=== PATIENT | male | born 1985 | race Caucasian/White ===

== ENCOUNTER 2016-02-26 21:21 | Inpatient (IN) | payer OTHER ==
[2016-02-26 22:49] VITALS: BMI 28.3
--- NOTE | 2016-02-26 22:49 | HP ---
CIWA Score - CIWA Score Nausea/Vomitin Muscle Tremors: 4-Moderate,w/Arms Extend Anxiety: 4-Mod. Anxious/Guarded Agitation: 4-Moderately Restless Paroxysmal Sweats: 2 Orientation: 1-Uncertain about Date Tacttile Disturbances: 0-None Auditory Disturbances: 0-None Visual Disturbances: 0-None Headache: 2-Mild CIWA-Ar Total Score: 19 Admission ROS S - [facility] Chief Complaint: withdrawal sx patient completed detox on 02/21/16, stay with girl friend, began to drink alcohol, repeated history of alcohol related seizure episodes, last dose of gabapentin was 02/21/16, current withdrawal sx of severe vomiting ap 108 with bp elevation 150/104, tremor, disoriented to date and day of the month patient determined to complete the alcohol regimen and follow up on 03/01/16 with residential rehab program as arranged Allergies/Adverse Reactions: Allergies Allergy/AdvReac Type Severity Reaction Status Date / Time acetaminophen [From Tylenol] Allergy Nausea Verified 02/26/16 22:39 ketamine Allergy Verified 02/26/16 22:39 History of Present Illness: 30 years old male with long history of alcohol nicotine dependence has asthma gerd vomiting and questionable seizure also depression is admitted to detox Exam Limitations: No Limitations - Ebola screening Have you traveled outside of the country in the last 21 days: No (N) Have you had contact with anyone from an Ebola affected area: No Have you been sick,other than usual withdrawal symptoms: No Do you have a fever: No - Review of Systems Constitutional: Chills, Changes in sleep, Weight Stable EENT: reports: No Symptoms Reported Respiratory: reports: No Symptoms reported Cardiac: reports: Palpitations GI: reports: Diarrhea, Nausea, Poor Fluid Intake, Vomiting, Indigestion, Abdominal cramping : reports: No Symptoms Reported Musculoskeletal: reports: Joint Pain, Muscle Pain (right shoulder) Integumentary: reports: No Symptoms Reported Neuro: reports: Seizure (2015), Weakness Endocrine: reports: No Symptoms Reported Hematology: reports: No Symptoms Reported Psychiatric: reports: Judgement Intact, Depressed Other Systems: Reviewed and Negative Patient History - Patient Medical History Hx Anemia: No Hx Asthma: Yes Hx Chronic Obstructive Pulmonary Disease (COPD): No Hx Cancer: No Hx Cardiac Disorders: No Hx Congestive Heart Failure: No Hx Hypertension: No Hx Hypercholesterolemia: No Hx Pacemaker: No HX Cerebrovascular Accident: No Hx Seizures: Yes (LAST 07/2014) Hx Dementia: No Hx Diabetes: No Hx Gastrointestinal Disorders: Yes Hx Liver Disease: No Hx Genitourinary Disorders: No Hx Sexually Transmitted Disorders: No Hx Renal Disease (ESRD): No Hx Thyroid Disease: No Hx Human Immunodeficiency Virus (HIV): No (negative) Hx Hepatitis C: No Hx Depression: Yes Hx Suicide Attempt: No Hx Bipolar Disorder: No Hx Schizophrenia: No - Patient Surgical History Past Surgical History: Yes Hx Neurologic Surgery: No Hx Cataract Extraction: No Hx Cardiac Surgery: No Hx Lung Surgery: No Hx Breast Surgery: No Hx Breast Biopsy: No Hx Abdominal Surgery: No Hx Appendectomy: No Hx Cholecystectomy: No Hx Genitourinary Surgery: No Hx Orthopedic Surgery: Yes (SHOULDER(dISLOCATED) 06/2015) Anesthesia Reaction: No - PPD History Previous Implant?: Yes Documented Results: Negative w/proof Implanted On Prior R Admission?: Yes Date: 01/04/16 Results: 0MM PPD to be Administered?: No - Smoking Cessation Smoking history: Current every day smoker Have you smoked in the past 12 months: Yes Aproximately how many cigarettes per day: 20 Cigars Per Day: 0 Hx Chewing Tobacco Use: No Initiated information on smoking cessation: Yes 'Breaking Loose' booklet given: 02/26/16 - Substance & Tx. History Hx Alcohol Use: Yes Hx Substance Use: Yes Substance Use Type: Alcohol, Cocaine, Marijuana Hx Substance Use Treatment: Yes - Substances Abused Alcohol Route: Oral Frequency: Daily Amount used: 40oz x 7 beer Age of first use: 20 Date of Last Use: 02/26/16 Family Disease History - Family Disease History Family Disease History: Diabetes: Grandparent (grandmother alcohol, ), Heart Disease: Grandparent, Other: Grandparent, Mother (alcohol, hepatitis), Brother ( alcohol,seizure,) Admission Physical Exam BHS - Vital Signs Vital Signs: Vital Signs - 24 hr 02/26/16 22:08 Temperature 97.6 F Pulse Rate 108 H Respiratory 18 Rate Blood Pressure 150/104 - Physical General Appearance: Yes: Nourished, Appropriately Dressed, Moderate Distress, Alcohol on Breath, Tremorous, Irritable, Sweating, Anxious HEENTM: Yes: Hearing grossly Normal, Normal ENT Inspection, Normocephalic, Normal Voice Respiratory: Yes: Chest Non-Tender, Labored Respiration, No Respiratory Distress , No Accessory Muscle Use, Wheezing, Expiration, Hyperresonant, Inspiration Neck: Yes: Supple, Trachea in good position Breast: Yes: Breasts Symetrical Cardiology: Yes: Regular Rhythm, S1, S2, Tachycardia Abdominal: Yes: Non Tender, Soft, Increased Bowel Sounds Genitourinary: Yes: Within Normal Limits Back: Yes: Normal Inspection Musculoskeletal: Yes: full range of Motion, Gait Steady, Muscle Pain (right shoulder) Extremities: Yes: Normal Range of Motion, Non-Tender, Tremors Neurological: Yes: Alert, Motor Strength 5/5, Normal Response, Depressed Affect Integumentary: Yes: Warm Lymphatic: Yes: Within Normal Limits - Diagnostic (1) Alcohol dependence with uncomplicated withdrawal Current Visit: Yes Status: Acute (2) Asthma Current Visit: Yes Status: Acute Qualifiers: Asthma severity: mild intermittent Asthma complication type: with status asthmaticus Qualified Code(s): J45.22 - Mild intermittent asthma with status asthmaticus (3) Cocaine dependence Current Visit: Yes Status: Chronic Qualifiers: Substance use status: uncomplicated Qualified Code(s): F14.20 - Cocaine dependence, uncomplicated (4) GERD (gastroesophageal reflux disease) Current Visit: Yes Status: Acute Qualifiers: Esophagitis presence: without esophagitis Qualified Code(s): K21.9 - Gastro-esophageal reflux disease without esophagitis (5) Nicotine dependence Current Visit: Yes Status: Acute Qualifiers: Nicotine product type: cigarettes Substance use status: uncomplicated Qualified Code(s): F17.210 - Nicotine dependence, cigarettes, uncomplicated (6) Seizure due to alcohol withdrawal Current Visit: Yes Status: Suspected Qualifiers: Complication of substance-induced condition: uncomplicated Qualified Code(s): F10.230 - Alcohol dependence with withdrawal, uncomplicated Comment: neurontin 300 mg tid (7) Depression Current Visit: Yes Status: Suspected Qualifiers: Depression Type: unspecified Qualified Code(s): F32.9 - Major depressive disorder, single episode, unspecified Comment: lexapro (8) Marijuana dependence Current Visit: Yes Status: Chronic Cleared for Admission B[facility] - Detox or Rehab [facility] Level of Care: Medically Managed Detox Regimen/Protocol: Librium S Breath Alcohol Content Breath Alcohol Content: 0.182 Vital Signs - Vital Signs Vital Signs Refused: No Temperature: 97.6 F Temperature Source: Oral Pulse Rate: 108 Respiratory Rate: 18 Blood Pressure: 150/104 BP Location: Left Arm Blood Pressure Position: Sitting - Height Height: 5 ft 11 in - Weight Weight: 203 lb Weight Measurement Method: Standing Scale Body Mass Index (BMI): 28.3 - Bowel Function Bowel Movement: Yes Urine Drug Screen - Results Drug Screen Negative: No Urine Drug Screen Results: THC-Marijuana, EVETTE-Cocaine, BZO-Benzodiazepines, TCA- Tricyclic Antidepress
[2016-02-26] MEDS ORDERED: MAGNESIUM CITRATE 300 ML BOTTLE PO PRN (22:52)
[2016-02-26] MEDS ORDERED: chlordiazePOXIDE HCL 25 MG CAPSULE PO ONE (22:52)
[2016-02-26] MEDS ORDERED: MAGNESIUM HYDROX 2400MG/30ML ORAL SUSPENSION 30 ML CUP PO PRN (22:52)
[2016-02-26] MEDS ORDERED: guaiFENesin/D-METHORPHAN HB 10 ML UNIT-DOSE CUPS PO PRN (22:52)
[2016-02-26] MEDS ORDERED: hydrOXYzine PAMOATE 50 MG CAPSULE (FP) PO PRN (22:52)
[2016-02-26] MEDS ORDERED: P-EPHED 60MG/TRIPROLIDI 2.5MG TABLET PO PRN (22:52)
[2016-02-26] MEDS ORDERED: MENTHOL/PHENOL 1 EACH UD MM PRN (22:52)
[2016-02-26] MEDS ORDERED: chlordiazePOXIDE HCL 25 MG CAPSULE PO PRN (22:52)
[2016-02-26] MEDS ORDERED: LOPERAMIDE HCL 2 MG CAPSULE PO PRN (22:52)
[2016-02-26] MEDS ORDERED: NICOTINE POLACRILEX 2 MG GUM BC PRN (22:52)
[2016-02-26] MEDS ORDERED: ALBUTEROL SO4 2.5/IPRATROPIUM 0.5 INH SOL 3 ML VIAL.NEB. NEB PRN (22:59)
[2016-02-26] MEDS ORDERED: ALBUTEROL SO4 6.7 GM HFA INHALER IH PRN (22:59)
[2016-02-26] MEDS ORDERED: ONDANSETRON *ODT* 4 MG TABLET SL PRN (22:59)
[2016-02-26] MEDS ORDERED: cloNIDine HCL 0.1 MG TABLET PO PRN (23:00)
[2016-02-26] MEDS: chlordiazePOXIDE HCL 25 MG CAPSULE PO SCH (23:31)
[2016-02-26] MEDS: diphenhydrAMINE HCL 50 MG CAPSULE PO PRN (23:32)
[2016-02-27] MEDS: chlordiazePOXIDE HCL 25 MG CAPSULE PO SCH ×4 (05:24→22:18)
[2016-02-27] MEDS: GABAPENTIN 300 MG CAPSULE (FP) PO SCH ×3 (05:24→22:18)
[2016-02-27] MEDS: MAG HYDROX/AL HYDROX/SIMETH 30 ML UNIT-DOSE CUP PO PRN (05:27)
[2016-02-27] MEDS: PRENATAL VITAMINS W/ FOLIC ACID TABLET (FP) PO SCH (10:27)
[2016-02-27] MEDS: NICOTINE 21 MG/24 HOURS TOPICAL PATCH TD SCH (10:27)
[2016-02-27] MEDS: RANITIDINE HCL 150 MG TABLET (FP) PO SCH ×2 (10:27→22:18)
[2016-02-27 10:38] LABS: MCH 30.7 pg (25.7-33.7); MCHC 34.2 g/dl (32.0-35.9); MEAN CELL VOLUME 89.7 fl (80-96); MEAN PLT VOLUME 8.4 fl (7.5-11.1); PLATELET COUNT 243 K/MM3 (134-434); RDW 13.3 % (11.9-15.9); WHITE BLOOD COUNT 7.3 K/mm3 (4.0-10.0)
[2016-02-27 10:47] LABS: ALBUMIN 3.7 g/dl (3.4-5.0); CALCIUM 8.3 mg/dL (8.5-10.1)
[2016-02-27 10:51] LABS: ALK PHOS 97 U/L (45-117); ANION GAP 5 (8-16); BILIRUBIN,TOTAL 0.5 mg/dL (0.2-1.0); CO2 31 mmol/L (21-32); GLUCOSE,RANDOM 93 mg/dL (74-106); SGOT/AST 23 U/L (15-37); SGPT/ALT 32 U/L (12-78); TOT PROT 6.7 g/dl (6.4-8.2)
--- NOTE | 2016-02-27 12:12 | PN ---
[facility] CIWA - CIWA Score Nausea/Vomitin-Mild Nausea/No Vomiting Muscle Tremors: 4-Moderate,w/Arms Extend Anxiety: 4-Mod. Anxious/Guarded Agitation: 4-Moderately Restless Paroxysmal Sweats: 3 Orientation: 0-Oriented Tacttile Disturbances: 0-None Auditory Disturbances: 0-None Visual Disturbances: 0-None Headache: 0-None Present CIWA-Ar Total Score: 16 BHS Progress Note (SOAP) Subjective: ANXIETY,TREMORS,SWEATING,INTERRUPTED SLEEP,RESTLESS Objective: 02/27/16 12:12 Vital Signs - 8 hr 02/27/16 02/27/16 06:04 09:51 Temperature 98 F 97.4 F L Pulse Rate 94 H 74 Respiratory 18 18 Rate Blood Pressure 150/91 147/92 Laboratory Last Values WBC 7.3 K/mm3 (4.0-10.0) 02/27/16 07:50 RBC 4.68 M/mm3 (4.00-5.60) 02/27/16 07:50 Hgb 14.4 GM/dL (11.7-16.9) 02/27/16 07:50 Hct 42.0 % (35.4-49) 02/27/16 07:50 MCV 89.7 fl (80-96) 02/27/16 07:50 MCHC 34.2 g/dl (32.0-35.9) 02/27/16 07:50 RDW 13.3 % (11.9-15.9) 02/27/16 07:50 Plt Count 243 K/MM3 (134-434) 02/27/16 07:50 MPV 8.4 fl (7.5-11.1) 02/27/16 07:50 Sodium 140 mmol/L (136-145) 02/27/16 07:50 Potassium 3.9 mmol/L (3.5-5.1) 02/27/16 07:50 Chloride 104 mmol/L (98-107) 02/27/16 07:50 Carbon Dioxide 31 mmol/L (21-32) 02/27/16 07:50 Anion Gap 5 (8-16) L 02/27/16 07:50 BUN 13 mg/dL (7-18) D 02/27/16 07:50 Creatinine 1.0 mg/dL (0.7-1.3) 02/27/16 07:50 Creat Clearance w eGFR > 60 (>60) 02/27/16 07:50 Random Glucose 93 mg/dL (74-106) 02/27/16 07:50 Calcium 8.3 mg/dL (8.5-10.1) L 02/27/16 07:50 Total Bilirubin 0.5 mg/dL (0.2-1.0) D 02/27/16 07:50 AST 23 U/L (15-37) D 02/27/16 07:50 ALT 32 U/L (12-78) D 02/27/16 07:50 Alkaline Phosphatase 97 U/L (45-117) 02/27/16 07:50 Total Protein 6.7 g/dl (6.4-8.2) 02/27/16 07:50 Albumin 3.7 g/dl (3.4-5.0) 02/27/16 07:50 LABS NOTED Assessment: 02/27/16 12:12 WITHDRAWAL SX. Plan: CONTINUE DETOX
[2016-02-27 13:23] LABS: URINE APPEARANCE CLEAR; URINE BILIRUBIN NEGATIVE (NEGATIVE); URINE BLOOD NEGATIVE (NEGATIVE); URINE COLOR YELLOW; URINE GLUCOSE (UA) NEGATIVE (NEGATIVE); URINE KETONE NEGATIVE (NEGATIVE); URINE LEUK ESTERASE NEGATIVE (NEGATIVE); URINE NITRITE NEGATIVE (NEGATIVE); URINE PROTEIN NEGATIVE (NEGATIVE); URINE UROBILINOGEN NEGATIVE E.U./dl (0.2-1.0)
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
[2016-02-27] MEDS: THIAMINE HCL 100 MG TABLET (FP) PO SCH (22:18)
[2016-02-27] MEDS: ZOLPIDEM TARTRATE 5 MG TABLET PO PRN (22:20)
[2016-02-28] MEDS: chlordiazePOXIDE HCL 25 MG CAPSULE PO SCH ×3 (05:29→17:44)
[2016-02-28] MEDS: GABAPENTIN 300 MG CAPSULE (FP) PO SCH ×3 (05:29→22:19)
[2016-02-28] MEDS: PRENATAL VITAMINS W/ FOLIC ACID TABLET (FP) PO SCH (10:27)
[2016-02-28] MEDS: RANITIDINE HCL 150 MG TABLET (FP) PO SCH ×2 (10:27→22:19)
[2016-02-28] MEDS: ESCITALOPRAM OXALATE 20 MG TABLET (FP) PO SCH (10:27)
[2016-02-28] MEDS: NICOTINE 21 MG/24 HOURS TOPICAL PATCH TD SCH (10:28)
--- NOTE | 2016-02-28 13:53 | PN ---
S CIWA - CIWA Score Nausea/Vomitin Muscle Tremors: 4-Moderate,w/Arms Extend Anxiety: 2 Agitation: 1-Slight > Activity Paroxysmal Sweats: 3 Orientation: 0-Oriented Tacttile Disturbances: 1-Very Mild Itch/Numbness Auditory Disturbances: 0-None Visual Disturbances: 1-Very Mild Sensitivity Headache: 0-None Present CIWA-Ar Total Score: 14 BHS Progress Note (SOAP) Subjective: Tremors, Interrupted Sleep, Diarrhea, Sweating. Objective: 02/28/16 13:52 Vital Signs Temperature 97.5 F L 02/28/16 13:11 Pulse Rate 69 02/28/16 13:11 Respiratory Rate 18 02/28/16 13:11 Blood Pressure 134/87 02/28/16 13:11 O2 Sat by Pulse Oximetry (%) Laboratory Last Values WBC 7.3 K/mm3 (4.0-10.0) 02/27/16 07:50 RBC 4.68 M/mm3 (4.00-5.60) 02/27/16 07:50 Hgb 14.4 GM/dL (11.7-16.9) 02/27/16 07:50 Hct 42.0 % (35.4-49) 02/27/16 07:50 MCV 89.7 fl (80-96) 02/27/16 07:50 MCHC 34.2 g/dl (32.0-35.9) 02/27/16 07:50 RDW 13.3 % (11.9-15.9) 02/27/16 07:50 Plt Count 243 K/MM3 (134-434) 02/27/16 07:50 MPV 8.4 fl (7.5-11.1) 02/27/16 07:50 Sodium 140 mmol/L (136-145) 02/27/16 07:50 Potassium 3.9 mmol/L (3.5-5.1) 02/27/16 07:50 Chloride 104 mmol/L (98-107) 02/27/16 07:50 Carbon Dioxide 31 mmol/L (21-32) 02/27/16 07:50 Anion Gap 5 (8-16) L 02/27/16 07:50 BUN 13 mg/dL (7-18) D 02/27/16 07:50 Creatinine 1.0 mg/dL (0.7-1.3) 02/27/16 07:50 Creat Clearance w eGFR > 60 (>60) 02/27/16 07:50 Random Glucose 93 mg/dL (74-106) 02/27/16 07:50 Calcium 8.3 mg/dL (8.5-10.1) L 02/27/16 07:50 Total Bilirubin 0.5 mg/dL (0.2-1.0) D 02/27/16 07:50 AST 23 U/L (15-37) D 02/27/16 07:50 ALT 32 U/L (12-78) D 02/27/16 07:50 Alkaline Phosphatase 97 U/L (45-117) 02/27/16 07:50 Total Protein 6.7 g/dl (6.4-8.2) 02/27/16 07:50 Albumin 3.7 g/dl (3.4-5.0) 02/27/16 07:50 Urine Color Yellow 02/27/16 08:15 Urine Appearance Clear 02/27/16 08:15 Urine pH 6.0 (5.0-8.0) 02/27/16 08:15 Ur Specific [place] 1.021 (1.001-1.035) 02/27/16 08:15 Urine Protein Negative (NEGATIVE) 02/27/16 08:15 Urine Glucose (UA) Negative (NEGATIVE) 02/27/16 08:15 Urine Ketones Negative (NEGATIVE) 02/27/16 08:15 Urine Blood Negative (NEGATIVE) 02/27/16 08:15 Urine Nitrite Negative (NEGATIVE) 02/27/16 08:15 Urine Bilirubin Negative (NEGATIVE) 02/27/16 08:15 Urine Urobilinogen Negative E.U./dl (0.2-1.0) 02/27/16 08:15 Ur Leukocyte Esterase Negative (NEGATIVE) 02/27/16 08:15 RPR Titer Nonreactive (NONREACTIVE) 02/27/16 07:50 LABS NOTED. Assessment: 02/28/16 13:52 WITHDRAWAL SYMPTOMS. Plan: CONTINUE DETOX. PRN IMMODIUM FOR DIARRHEA.
[2016-02-28] MEDS: MAG HYDROX/AL HYDROX/SIMETH 30 ML UNIT-DOSE CUP PO PRN (21:26)
[2016-02-28] MEDS: chlordiazePOXIDE 5 MG CAPSULE PO SCH (22:19)
[2016-02-28] MEDS: THIAMINE HCL 100 MG TABLET (FP) PO SCH (22:19)
[2016-02-28] MEDS: ZOLPIDEM TARTRATE 5 MG TABLET PO PRN (22:22)
[2016-02-29] MEDS: GABAPENTIN 300 MG CAPSULE (FP) PO SCH ×3 (05:30→22:18)
[2016-02-29] MEDS: chlordiazePOXIDE 5 MG CAPSULE PO SCH ×3 (05:30→17:50)
--- NOTE | 2016-02-29 10:37 | PN ---
B[facility] Progress Note (SOAP) Subjective: SWEATING,RESTLESS Objective: 02/29/16 10:36 Vital Signs - 8 hr 02/29/16 02/29/16 06:13 10:17 Temperature 98.9 F 98.6 F Pulse Rate 63 80 Respiratory 18 20 Rate Blood Pressure 134/93 144/90 Laboratory Last Values WBC 7.3 K/mm3 (4.0-10.0) 02/27/16 07:50 RBC 4.68 M/mm3 (4.00-5.60) 02/27/16 07:50 Hgb 14.4 GM/dL (11.7-16.9) 02/27/16 07:50 Hct 42.0 % (35.4-49) 02/27/16 07:50 MCV 89.7 fl (80-96) 02/27/16 07:50 MCHC 34.2 g/dl (32.0-35.9) 02/27/16 07:50 RDW 13.3 % (11.9-15.9) 02/27/16 07:50 Plt Count 243 K/MM3 (134-434) 02/27/16 07:50 MPV 8.4 fl (7.5-11.1) 02/27/16 07:50 Sodium 140 mmol/L (136-145) 02/27/16 07:50 Potassium 3.9 mmol/L (3.5-5.1) 02/27/16 07:50 Chloride 104 mmol/L (98-107) 02/27/16 07:50 Carbon Dioxide 31 mmol/L (21-32) 02/27/16 07:50 Anion Gap 5 (8-16) L 02/27/16 07:50 BUN 13 mg/dL (7-18) D 02/27/16 07:50 Creatinine 1.0 mg/dL (0.7-1.3) 02/27/16 07:50 Creat Clearance w eGFR > 60 (>60) 02/27/16 07:50 Random Glucose 93 mg/dL (74-106) 02/27/16 07:50 Calcium 8.3 mg/dL (8.5-10.1) L 02/27/16 07:50 Total Bilirubin 0.5 mg/dL (0.2-1.0) D 02/27/16 07:50 AST 23 U/L (15-37) D 02/27/16 07:50 ALT 32 U/L (12-78) D 02/27/16 07:50 Alkaline Phosphatase 97 U/L (45-117) 02/27/16 07:50 Total Protein 6.7 g/dl (6.4-8.2) 02/27/16 07:50 Albumin 3.7 g/dl (3.4-5.0) 02/27/16 07:50 Urine Color Yellow 02/27/16 08:15 Urine Appearance Clear 02/27/16 08:15 Urine pH 6.0 (5.0-8.0) 02/27/16 08:15 Ur Specific [place] 1.021 (1.001-1.035) 02/27/16 08:15 Urine Protein Negative (NEGATIVE) 02/27/16 08:15 Urine Glucose (UA) Negative (NEGATIVE) 02/27/16 08:15 Urine Ketones Negative (NEGATIVE) 02/27/16 08:15 Urine Blood Negative (NEGATIVE) 02/27/16 08:15 Urine Nitrite Negative (NEGATIVE) 02/27/16 08:15 Urine Bilirubin Negative (NEGATIVE) 02/27/16 08:15 Urine Urobilinogen Negative E.U./dl (0.2-1.0) 02/27/16 08:15 Ur Leukocyte Esterase Negative (NEGATIVE) 02/27/16 08:15 RPR Titer Nonreactive (NONREACTIVE) 02/27/16 07:50 LABS NOTED Assessment: 02/29/16 10:37 WITHDRAWAL SX. Plan: CONTINUE DETOX
[2016-02-29] MEDS: ESCITALOPRAM OXALATE 20 MG TABLET (FP) PO SCH (10:40)
[2016-02-29] MEDS: PRENATAL VITAMINS W/ FOLIC ACID TABLET (FP) PO SCH (10:40)
[2016-02-29] MEDS: RANITIDINE HCL 150 MG TABLET (FP) PO SCH ×2 (10:40→22:18)
[2016-02-29] MEDS: NICOTINE 21 MG/24 HOURS TOPICAL PATCH TD SCH (10:41)
[2016-02-29] MEDS: chlordiazePOXIDE HCL 10 MG CAPSULE PO SCH (22:18)
[2016-02-29] MEDS: THIAMINE HCL 100 MG TABLET (FP) PO SCH (22:18)
[2016-02-29] MEDS: diphenhydrAMINE HCL 50 MG CAPSULE PO PRN (22:20)
[2016-02-29] MEDS ORDERED: ZOLPIDEM TARTRATE 5 MG TABLET PO ONE (22:33)
[2016-03-01] MEDS: chlordiazePOXIDE HCL 10 MG CAPSULE PO SCH (05:32)
[2016-03-01] MEDS: GABAPENTIN 300 MG CAPSULE (FP) PO SCH (05:32)
[2016-03-01 06:36] VITALS: BP 113/74; PULSE 61; TEMP 96.8
--- NOTE | 2016-03-01 08:24 | PN ---
S Progress Note (SOAP) Subjective: ALERT,NO COMPLAINT Objective: 03/01/16 08:23 Vital Signs Temperature 96.8 F L 03/01/16 06:36 Pulse Rate 61 03/01/16 06:36 Respiratory Rate 18 03/01/16 06:36 Blood Pressure 113/74 03/01/16 06:36 O2 Sat by Pulse Oximetry (%) Assessment: 03/01/16 08:23 DETOX COMPLETED,NO WITHDRAWAL SYMPTOM Plan: DISCHARGE TODAY,FOLLOW UP WITH AFTER CARE PROGRAM ARRANGEMENT
--- NOTE | 2016-03-01 08:27 | DS ---
[facility] Detox Discharge Summary Admission Date: 02/26/16 Discharge Date: 03/01/16 - History Present History: Alcohol Dependence, Cocaine Dependence Additional Comments: FOLLOW UP WITH AFTER [facility] PROGRAM ARRANGEMENT AND PMD FOR MEDICAL PROBLEM Pertinent Past History: ASTHMA GERD NICOTINE DEPENDENCE SEIZURE - Physical Exam Results Vital Signs: Vital Signs Temperature 96.8 F L 03/01/16 06:36 Pulse Rate 61 03/01/16 06:36 Respiratory Rate 18 03/01/16 06:36 Blood Pressure 113/74 03/01/16 06:36 O2 Sat by Pulse Oximetry (%) Pertinent Admission Physical Exam Findings: WITHDRAWAL SYMPTOM - Treatment Hospital Course: Detox Protocol Followed, Detoxed Safely, Responded well, Discharged Condition Good Patient has Accepted a Rehab Referral to: DECLINED - Medication Discharge Medications: Ambulatory Orders Escitalopram Oxalate [Lexapro -] 20 mg PO DAILY 02/17/16 Naltrexone HCl [Revia] 50 mg PO DAILY 02/17/16 Escitalopram Oxalate [Lexapro -] 20 mg PO DAILY #30 tablet 02/18/16 Albuterol Sulfate Inhaler - [Ventolin HFA Inhaler -] 2 inh IH Q4H PRN #1 inhaler 02/21/16 Gabapentin 300 mg PO TID #90 capsule 02/21/16 - AMA Did Patient Leave Against Medical Advice: No
== END 2016-03-01 06:44 | disposition home or self-care (01) | DRG 774 ==
LOC: YASAS 21:21 → Y3N 23:01
PROVIDERS: ADMIT Internal Medicine; ATTEND Internal Medicine
PROC: HZ2ZZZZ Detoxification Services for Substance Abuse Treatment (ICD-10-PCS; principal; 2016-02-26)
DX: F10.230 Alcohol dependence with withdrawal, uncomplicated (principal); F14.20 Cocaine dependence, uncomplicated; F12.20 Cannabis dependence, uncomplicated; F17.210 Nicotine dependence, cigarettes, uncomplicated; F19.24 Other psychoactive substance dependence with psychoactive substance-induced mood disorder; F32.9 Major depressive disorder, single episode, unspecified; K21.9 Gastro-esophageal reflux disease without esophagitis; G40.909 Epilepsy, unspecified, not intractable, without status epilepticus; J45.22 Mild intermittent asthma with status asthmaticus; R00.0 Tachycardia, unspecified
CPT/HCPCS: 36415; 80053; 81003; 85027; 86593; 93005; 93010

== ENCOUNTER 2016-05-09 00:21 | Inpatient (IN) | payer OTHER ==
--- NOTE | 2016-05-09 00:40 | HP ---
CIWA Score - CIWA Score Nausea/Vomitin Muscle Tremors: 4-Moderate,w/Arms Extend Anxiety: 4-Mod. Anxious/Guarded Agitation: 4-Moderately Restless Paroxysmal Sweats: 3 Orientation: 1-Uncertain about Date Tacttile Disturbances: 3-Moderate Itch/Numb/Burn Auditory Disturbances: 0-None Visual Disturbances: 0-None Headache: 4-Moderately Severe CIWA-Ar Total Score: 25 Admission ROS BHS - HPI Chief Complaint: C/O WITHDRAWAL SX'S. SEEKING DETOX. Allergies/Adverse Reactions: Allergies Allergy/AdvReac Type Severity Reaction Status Date / Time acetaminophen [From Tylenol] Allergy Nausea Verified 05/09/16 00:34 ketamine Allergy Verified 05/09/16 00:34 History of Present Illness: 31 Y.O. MALE WITH OPIOID DEPENDENCE ADMITTED FOR DETOX TXMENT. CLIENT IS KNOWN TO [facility]. REPORTS LONGEST PERIOD OF SOBRIETY 6 MONTHS. Exam Limitations: No Limitations - Ebola screening Have you traveled outside of the country in the last 21 days: No Have you had contact with anyone from an Ebola affected area: No Have you been sick,other than usual withdrawal symptoms: No Do you have a fever: No - Review of Systems Constitutional: Chills, Loss of Appetite, Malaise, Night Sweats, Changes in sleep EENT: reports: Other (HOARNESS) Respiratory: reports: Shortness of Breath, Other (R/T PANIC ATTACKS) Cardiac: reports: No Symptoms Reported GI: reports: Diarrhea, Nausea, Poor Appetite, Vomiting : reports: No Symptoms Reported Musculoskeletal: reports: Neck Pain Integumentary: reports: No Symptoms Reported Neuro: reports: Seizure (R/T ETOH WITH DRAWAL LAST 07/2014) Endocrine: reports: No Symptoms Reported Hematology: reports: No Symptoms Reported Psychiatric: reports: Anxious, Depressed Other Systems: Reviewed and Negative Patient History - Patient Medical History Hx Anemia: No Hx Asthma: Yes Hx Chronic Obstructive Pulmonary Disease (COPD): No Hx Cancer: No Hx Cardiac Disorders: No Hx Congestive Heart Failure: No Hx Hypertension: No Hx Hypercholesterolemia: No Hx Pacemaker: No HX Cerebrovascular Accident: No Hx Seizures: Yes (LAST 07/2014) Hx Dementia: No Hx Diabetes: No Hx Gastrointestinal Disorders: Yes (GERD) Hx Liver Disease: No Hx Genitourinary Disorders: No Hx Sexually Transmitted Disorders: No Hx Renal Disease (ESRD): No Hx Thyroid Disease: No Hx Human Immunodeficiency Virus (HIV): No Hx Hepatitis C: No Hx Depression: Yes (LEXAPRO) Hx Suicide Attempt: No Hx Bipolar Disorder: No Hx Schizophrenia: No Other Medical History: DENIES - Patient Surgical History Past Surgical History: Yes Hx Neurologic Surgery: No Hx Cataract Extraction: No Hx Cardiac Surgery: No Hx Lung Surgery: No Hx Breast Surgery: No Hx Breast Biopsy: No Hx Abdominal Surgery: No Hx Appendectomy: No Hx Cholecystectomy: No Hx Genitourinary Surgery: No Hx Section: No Hx Orthopedic Surgery: Yes (SHOULDER(dISLOCATED) 06/2015) Anesthesia Reaction: No - PPD History Previous Implant?: Yes Documented Results: Negative w/proof Implanted On Prior [facility] Admission?: Yes Date: 01/04/16 Results: 0MM PPD to be Administered?: No - Smoking Cessation Smoking history: Current every day smoker Have you smoked in the past 12 months: Yes Aproximately how many cigarettes per day: 10 Cigars Per Day: 0 Hx Chewing Tobacco Use: No Initiated information on smoking cessation: Yes 'Breaking Loose' booklet given: 05/09/16 - Substance & Tx. History Hx Alcohol Use: Yes Hx Substance Use: Yes Substance Use Type: Alcohol, Cocaine, Marijuana Hx Substance Use Treatment: Yes ([facility]) - Substances Abused BEER Route: Oral Frequency: Daily Amount used: 7- 24OZ Age of first use: 23 Date of Last Use: 05/08/16 THC Route: Smoking Frequency: Daily Amount used: 1 JOINT Age of first use: 13 Date of Last Use: 05/08/16 EVETTE Route: Inhalation Frequency: 1-3 times last 30 days Amount used: 1GM Age of first use: 24 Date of Last Use: 05/06/16 Family Disease History - Family Disease History Family Disease History: Diabetes: Grandparent (grandmother alcohol, ), Heart Disease: Grandparent, Other: Grandparent, Mother (alcohol, hepatitis), Brother ( alcohol,seizure,) Admission Physical Exam [facility] - Physical General Appearance: Yes: Appropriately Dressed, Mild Distress, Alcohol on Breath , Tremorous, Anxious HEENTM: Yes: EOMI, Normocephalic, Normal Voice, DAE, Pharynx Normal, Other ( HOARSE VOICE) Respiratory: Yes: Chest Non-Tender, Lungs Clear, Normal Breath Sounds, No Respiratory Distress, No Accessory Muscle Use Neck: Yes: No masses,lesions,Nodules, Supple, Trachea in good position Breast: Yes: Breast Exam Deferred Cardiology: Yes: Regular Rhythm, Regular Rate, S1, S2 Abdominal: Yes: Normal Bowel Sounds, Non Tender, Flat, Soft Genitourinary: Yes: Within Normal Limits Back: Yes: Normal Inspection Musculoskeletal: Yes: full range of Motion, Gait Steady Extremities: Yes: Normal Capillary Refill, Normal Range of Motion, Non-Tender, Tremors 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, Alert, Motor Strength 5/5 Integumentary: Yes: Normal Color, Warm, Moist Lymphatic: Yes: Within Normal Limits - Diagnostic (1) Alcohol dependence with uncomplicated withdrawal Current Visit: No Status: Acute (2) Cocaine dependence Current Visit: Yes Status: Chronic Qualifiers: Substance use status: uncomplicated Qualified Code(s): F14.20 - Cocaine dependence, uncomplicated (3) Marijuana dependence Current Visit: Yes Status: Chronic (4) Nicotine dependence Current Visit: Yes Status: Chronic Qualifiers: Nicotine product type: cigarettes Substance use status: uncomplicated Qualified Code(s): F17.210 - Nicotine dependence, cigarettes, uncomplicated (5) Asthma Current Visit: Yes Status: Chronic Qualifiers: Asthma severity: mild intermittent Asthma complication type: with status asthmaticus Qualified Code(s): J45.22 - Mild intermittent asthma with status asthmaticus (6) GERD (gastroesophageal reflux disease) Current Visit: Yes Status: Chronic Qualifiers: Esophagitis presence: without esophagitis Qualified Code(s): K21.9 - Gastro-esophageal reflux disease without esophagitis (7) Seizure due to alcohol withdrawal Current Visit: Yes Status: Suspected Qualifiers: Complication of substance-induced condition: uncomplicated Qualified Code(s): F10.230 - Alcohol dependence with withdrawal, uncomplicated Comment: neurontin 300 mg tid Cleared for Admission S - Detox or Rehab [facility] Level of Care: Medically Managed Detox Regimen/Protocol: Librium [facility] Breath Alcohol Content Breath Alcohol Content: 0.186 Vital Signs - Vital Signs Vital Signs Refused: No Temperature: 98.6 F Temperature Source: Oral Pulse Rate: 97 Respiratory Rate: 20 Blood Pressure: 134/87 BP Location: Left Arm Blood Pressure Position: Sitting - Height Height: 5 ft 11 in - Weight Weight: 90.718 kg Weight Measurement Method: Standing Scale Body Mass Index (BMI): 27.8 - Bowel Function Bowel Movement: No Urine Drug Screen - Test Device Lot Number: [id number] Expiration Date: 01/26/18 - Control Is Test Valid: Yes - Results Drug Screen Negative: No Urine Drug Screen Results: THC-Marijuana, EVETTE-Cocaine
[2016-05-09 00:47] VITALS: BMI 27.8
[2016-05-09] MEDS ORDERED: MENTHOL/PHENOL 1 EACH UD MM PRN (00:55)
[2016-05-09] MEDS ORDERED: LOPERAMIDE HCL 2 MG CAPSULE PO PRN (00:55)
[2016-05-09] MEDS ORDERED: chlordiazePOXIDE HCL 25 MG CAPSULE PO ONE (00:55)
[2016-05-09] MEDS ORDERED: hydrOXYzine PAMOATE 50 MG CAPSULE (FP) PO PRN (00:55)
[2016-05-09] MEDS ORDERED: P-EPHED 60MG/TRIPROLIDI 2.5MG TABLET PO PRN (00:55)
[2016-05-09] MEDS ORDERED: NICOTINE POLACRILEX 2 MG GUM BC PRN (00:55)
[2016-05-09] MEDS ORDERED: MAGNESIUM HYDROX 2400MG/30ML ORAL SUSPENSION 30 ML CUP PO PRN (00:55)
[2016-05-09] MEDS ORDERED: MAGNESIUM CITRATE 300 ML BOTTLE PO PRN (00:55)
[2016-05-09] MEDS ORDERED: guaiFENesin/D-METHORPHAN HB 10 ML UNIT-DOSE CUPS PO PRN (00:55)
[2016-05-09] MEDS ORDERED: ALBUTEROL SO4 6.7 GM HFA INHALER IH PRN (00:58)
[2016-05-09] MEDS: diphenhydrAMINE HCL 50 MG CAPSULE PO PRN ×2 (01:46→22:57)
[2016-05-09] MEDS: MAG HYDROX/AL HYDROX/SIMETH 30 ML UNIT-DOSE CUP PO PRN ×2 (01:49→08:25)
[2016-05-09] MEDS: chlordiazePOXIDE HCL 25 MG CAPSULE PO SCH ×4 (05:43→22:57)
--- NOTE | 2016-05-09 10:12 | PN ---
S CIWA - CIWA Score Nausea/Vomitin Muscle Tremors: 3 Anxiety: 4-Mod. Anxious/Guarded Agitation: 3 Paroxysmal Sweats: 3 Orientation: 0-Oriented Tacttile Disturbances: 2-Mild Itch/Numbness/Burn Auditory Disturbances: 0-None Visual Disturbances: 0-None Headache: 0-None Present CIWA-Ar Total Score: 18 BHS Progress Note (SOAP) Subjective: INTERRUPTED SLEEP, SWEATS, SHAKES, HEARTBURN ESPECIALLY WHEN HE LIES DOWN Objective: 05/09/16 10:11 Vital Signs Temperature 97.5 F L 05/09/16 09:49 Pulse Rate 90 05/09/16 09:49 Respiratory Rate 18 05/09/16 09:49 Blood Pressure 152/97 05/09/16 09:49 O2 Sat by Pulse Oximetry (%) 05/09/16 10:18 PT AOX3 MILD DISCOMFORT ON PALPATION EPIGASTRIC AREA 05/09/16 10:19 PENDING LABS Assessment: 05/09/16 10:11 WITHDRAWAL SX;S 05/09/16 10:18 GERD Plan: CONT. DETOX INCREASE FLUIDS ZANTAC 300MG NOW ZANTAC 150MG PO BID F/UP LABS
[2016-05-09] MEDS: PRENATAL VITAMINS W/ FOLIC ACID TABLET (FP) PO SCH (10:13)
[2016-05-09] MEDS: NICOTINE 14 MG/24 HOURS TOPICAL PATCH TD SCH (10:13)
[2016-05-09] MEDS ORDERED: RANITIDINE HCL 150 MG TABLET (FP) PO ONE (10:34)
[2016-05-09 10:35] LABS: MCH 30.8 pg (25.7-33.7); MCHC 33.8 g/dl (32.0-35.9); MEAN PLT VOLUME 8.1 fl (7.5-11.1); PLATELET COUNT 233 K/MM3 (134-434); RDW 13.7 % (11.9-15.9); URINE APPEARANCE CLEAR; URINE BILIRUBIN NEGATIVE (NEGATIVE); URINE BLOOD NEGATIVE (NEGATIVE); URINE COLOR STRAW; URINE GLUCOSE (UA) NEGATIVE (NEGATIVE); URINE KETONE TRACE (NEGATIVE); URINE LEUK ESTERASE NEGATIVE (NEGATIVE); URINE NITRITE NEGATIVE (NEGATIVE); URINE PROTEIN NEGATIVE (NEGATIVE); URINE UROBILINOGEN NEGATIVE E.U./dl (0.2-1.0); WHITE BLOOD COUNT 8.2 K/mm3 (4.0-10.0)
[2016-05-09 10:41] LABS: ALBUMIN 4.2 g/dl (3.4-5.0); ALK PHOS 111 U/L (45-117); BILIRUBIN,TOTAL 0.5 mg/dL (0.2-1.0); CO2 23 mmol/L (21-32); CREATININE 0.8 mg/dL (0.7-1.3); GLUCOSE,RANDOM 81 mg/dL (74-106); SGOT/AST 35 U/L (15-37); SGPT/ALT 30 U/L (12-78); TOT PROT 7.6 g/dl (6.4-8.2)
[2016-05-09 10:57] LABS: ANION GAP 16 (8-16)
[2016-05-09] MEDS: chlordiazePOXIDE HCL 25 MG CAPSULE PO PRN (14:58)
--- NOTE | 2016-05-09 15:00 | EKG ---
Test Reason : Blood Pressure : / mmHG Vent. Rate : 075 BPM Atrial Rate : 075 BPM P-R Int : 150 ms QRS Dur : 088 ms QT Int : 370 ms P-R-T Axes : 030 050 044 degrees QTc Int : 413 ms NORMAL SINUS RHYTHM NORMAL ECG NO PREVIOUS ECGS AVAILABLE Confirmed by DEANA ERVIN MD ([id number]) on 05/09/2016 3:00:04 PM Referred By: Confirmed By:DEANA ERVIN MD
[2016-05-09] MEDS: THIAMINE HCL 100 MG TABLET (FP) PO SCH (22:57)
[2016-05-10] MEDS: chlordiazePOXIDE HCL 25 MG CAPSULE PO SCH ×4 (05:18→22:48)
[2016-05-10] MEDS: PRENATAL VITAMINS W/ FOLIC ACID TABLET (FP) PO SCH (11:32)
[2016-05-10] MEDS: NICOTINE 14 MG/24 HOURS TOPICAL PATCH TD SCH (11:32)
--- NOTE | 2016-05-10 11:47 | PN ---
S CIWA - CIWA Score Nausea/Vomitin-No Nausea/No Vomiting Muscle Tremors: 4-Moderate,w/Arms Extend Anxiety: 3 Agitation: 4-Moderately Restless Paroxysmal Sweats: 3 Orientation: 0-Oriented Tacttile Disturbances: 0-None Auditory Disturbances: 0-None Visual Disturbances: 0-None Headache: 1-Very Mild CIWA-Ar Total Score: 15 BHS Progress Note (SOAP) Subjective: agitation anxiety sweats shakes irritable Objective: 05/10/16 11:47 Vital Signs Temperature 98.1 F 05/10/16 10:12 Pulse Rate 79 05/10/16 10:12 Respiratory Rate 18 05/10/16 10:12 Blood Pressure 140/100 05/10/16 10:12 O2 Sat by Pulse Oximetry (%) Laboratory Tests 05/09/16 05/09/16 05/09/16 07:00 07:00 07:00 WBC 8.2 RBC 5.19 Hgb 16.0 D Hct 47.2 MCV 91.0 MCHC 33.8 RDW 13.7 Plt Count 233 MPV 8.1 Sodium 139 Potassium 3.5 Chloride 100 Carbon Dioxide 23 D Anion Gap 16 BUN 8 D Creatinine 0.8 Creat Clearance w eGFR > 60 Random Glucose 81 Calcium 9.0 Total Bilirubin 0.5 AST 35 D ALT 30 Alkaline Phosphatase 111 Total Protein 7.6 Albumin 4.2 Urine Color Urine Appearance Urine pH Ur Specific [place] Urine Protein Urine Glucose (UA) Urine Ketones Urine Blood Urine Nitrite Urine Bilirubin Urine Urobilinogen Ur Leukocyte Esterase RPR Titer Hepatitis C Antibody 0.1 05/09/16 05/09/16 07:00 08:00 WBC RBC Hgb Hct MCV MCHC RDW Plt Count MPV Sodium Potassium Chloride Carbon Dioxide Anion Gap BUN Creatinine Creat Clearance w eGFR Random Glucose Calcium Total Bilirubin AST ALT Alkaline Phosphatase Total Protein Albumin Urine Color Straw Urine Appearance Clear Urine pH 6.0 Ur Specific [place] 1.008 Urine Protein Negative Urine Glucose (UA) Negative Urine Ketones Trace H Urine Blood Negative Urine Nitrite Negative Urine Bilirubin Negative Urine Urobilinogen Negative Ur Leukocyte Esterase Negative RPR Titer Nonreactive Hepatitis C Antibody awake/alert ambulating no acute distress Assessment: 05/10/16 11:47 withdrawal sx Plan: continue detox increase fluids
[2016-05-10] MEDS ORDERED: cloNIDine HCL 0.1 MG TABLET PO ONE (12:11)
[2016-05-10] MEDS: IBUPROFEN 400 MG TABLET (FP) PO PRN (17:35)
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
[2016-05-10] MEDS: diphenhydrAMINE HCL 50 MG CAPSULE PO PRN (22:46)
[2016-05-10] MEDS: THIAMINE HCL 100 MG TABLET (FP) PO SCH (22:47)
[2016-05-10] MEDS: RANITIDINE HCL 150 MG TABLET (FP) PO SCH (22:48)
[2016-05-11] MEDS: chlordiazePOXIDE HCL 25 MG CAPSULE PO PRN ×2 (02:08→14:12)
[2016-05-11] MEDS: diphenhydrAMINE HCL 50 MG CAPSULE PO PRN (02:08)
[2016-05-11] MEDS: chlordiazePOXIDE 5 MG CAPSULE PO SCH ×4 (05:45→22:59)
[2016-05-11] MEDS: GABAPENTIN 100 MG CAPSULE (FP) PO SCH ×3 (05:47→22:59)
[2016-05-11] MEDS: ESCITALOPRAM OXALATE 10 MG TABLET (FP) PO SCH (10:30)
[2016-05-11] MEDS: RANITIDINE HCL 150 MG TABLET (FP) PO SCH ×2 (10:30→22:59)
[2016-05-11] MEDS: PRENATAL VITAMINS W/ FOLIC ACID TABLET (FP) PO SCH (10:30)
[2016-05-11] MEDS: NICOTINE 14 MG/24 HOURS TOPICAL PATCH TD SCH (10:33)
--- NOTE | 2016-05-11 12:10 | PN ---
BHS Progress Note (SOAP) Subjective: interrupted sleep, sweats, rt shoulder pain Objective: 05/11/16 12:09 Vital Signs Temperature 95.9 F L 05/11/16 10:06 Pulse Rate 58 L 05/11/16 10:06 Respiratory Rate 18 05/11/16 10:06 Blood Pressure 133/99 05/11/16 10:06 O2 Sat by Pulse Oximetry (%) Laboratory Tests 05/09/16 05/09/16 05/09/16 07:00 07:00 07:00 WBC 8.2 RBC 5.19 Hgb 16.0 D Hct 47.2 MCV 91.0 MCHC 33.8 RDW 13.7 Plt Count 233 MPV 8.1 Sodium 139 Potassium 3.5 Chloride 100 Carbon Dioxide 23 D Anion Gap 16 BUN 8 D Creatinine 0.8 Creat Clearance w eGFR > 60 Random Glucose 81 Calcium 9.0 Total Bilirubin 0.5 AST 35 D ALT 30 Alkaline Phosphatase 111 Total Protein 7.6 Albumin 4.2 Urine Color Urine Appearance Urine pH Ur Specific [place] Urine Protein Urine Glucose (UA) Urine Ketones Urine Blood Urine Nitrite Urine Bilirubin Urine Urobilinogen Ur Leukocyte Esterase RPR Titer Hepatitis C Antibody 0.1 05/09/16 05/09/16 07:00 08:00 WBC RBC Hgb Hct MCV MCHC RDW Plt Count MPV Sodium Potassium Chloride Carbon Dioxide Anion Gap BUN Creatinine Creat Clearance w eGFR Random Glucose Calcium Total Bilirubin AST ALT Alkaline Phosphatase Total Protein Albumin Urine Color Straw Urine Appearance Clear Urine pH 6.0 Ur Specific [place] 1.008 Urine Protein Negative Urine Glucose (UA) Negative Urine Ketones Trace H Urine Blood Negative Urine Nitrite Negative Urine Bilirubin Negative Urine Urobilinogen Negative Ur Leukocyte Esterase Negative RPR Titer Nonreactive Hepatitis C Antibody pt aox3 in nad ambulating Assessment: 05/11/16 12:09 withdrawal sx's Plan: cont. detox increase fluids d/c in am
[2016-05-11] MEDS: IBUPROFEN 400 MG TABLET (FP) PO PRN (18:37)
[2016-05-11] MEDS ORDERED: QUEtiapine FUMARATE 100 MG TABLET (FP) PO SCH (22:00)
[2016-05-11] MEDS: THIAMINE HCL 100 MG TABLET (FP) PO SCH (23:00)
[2016-05-12] MEDS: GABAPENTIN 100 MG CAPSULE (FP) PO SCH (05:53)
[2016-05-12] MEDS: chlordiazePOXIDE HCL 10 MG CAPSULE PO SCH ×2 (05:53→10:00)
[2016-05-12] MEDS: RANITIDINE HCL 150 MG TABLET (FP) PO SCH (09:19)
[2016-05-12] MEDS: IBUPROFEN 400 MG TABLET (FP) PO PRN (09:19)
[2016-05-12] MEDS: ESCITALOPRAM OXALATE 10 MG TABLET (FP) PO SCH (09:19)
[2016-05-12] MEDS: PRENATAL VITAMINS W/ FOLIC ACID TABLET (FP) PO SCH (09:21)
--- NOTE | 2016-05-12 09:38 | DS ---
[facility] Detox Discharge Summary Admission Date: 05/09/16 Discharge Date: 05/12/16 - History Present History: Alcohol Dependence, Cocaine Dependence - Physical Exam Results Vital Signs: Vital Signs Temperature 97.5 F L 05/12/16 07:08 Pulse Rate 61 05/12/16 07:08 Respiratory Rate 16 05/12/16 07:08 Blood Pressure 100/64 05/12/16 07:08 O2 Sat by Pulse Oximetry (%) - Treatment Hospital Course: Detox Protocol Followed, Detoxed Safely, Responded well, Discharged Condition Good, Rehab Referral Accepted - Medication Discharge Medications: Ambulatory Orders Escitalopram Oxalate [Lexapro -] 20 mg PO DAILY 02/17/16 Naltrexone HCl [Revia] 50 mg PO DAILY 02/17/16 Escitalopram Oxalate [Lexapro -] 20 mg PO DAILY #30 tablet 02/18/16 Albuterol Sulfate Inhaler - [Ventolin HFA Inhaler -] 2 inh IH Q4H PRN #1 inhaler 02/21/16 Gabapentin 300 mg PO TID #90 capsule 02/21/16 Albuterol Sulfate Inhaler - [Ventolin HFA Inhaler -] 2 puff IH Q4H PRN #0 inhaler 03/01/16 Gabapentin [Neurontin -] 300 mg PO TID capsule 03/01/16 Ranitidine [Zantac -] 150 mg PO BID tablet 03/01/16 Escitalopram Oxalate [Lexapro -] 10 mg PO DAILY #30 tablet 05/11/16 Quetiapine Fumarate [Seroquel] 100 mg PO HS #30 tablet 05/11/16 - Diagnosis (1) Alcohol dependence with uncomplicated withdrawal Current Visit: Yes Status: Chronic (2) Alcohol-induced mood disorder Current Visit: Yes Status: Acute (3) Cocaine dependence Current Visit: Yes Status: Chronic Qualifiers: Substance use status: uncomplicated Qualified Code(s): F14.20 - Cocaine dependence, uncomplicated (4) Drug-induced mood disorder Current Visit: Yes Status: Acute (5) Marijuana dependence Current Visit: Yes Status: Chronic (6) Nicotine dependence Current Visit: Yes Status: Chronic Qualifiers: Nicotine product type: cigarettes Substance use status: uncomplicated Qualified Code(s): F17.210 - Nicotine dependence, cigarettes, uncomplicated (7) 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 (8) Asthma Current Visit: Yes Status: Chronic Qualifiers: Asthma severity: mild intermittent Asthma complication type: with status asthmaticus Qualified Code(s): J45.22 - Mild intermittent asthma with status asthmaticus (9) GERD (gastroesophageal reflux disease) Current Visit: Yes Status: Chronic Qualifiers: Esophagitis presence: without esophagitis Qualified Code(s): K21.9 - Gastro-esophageal reflux disease without esophagitis (10) Seizure due to alcohol withdrawal Current Visit: Yes Status: Suspected Qualifiers: Complication of substance-induced condition: uncomplicated Qualified Code(s): F10.230 - Alcohol dependence with withdrawal, uncomplicated (11) Alcohol dependence with uncomplicated intoxication Current Visit: No Status: Acute (12) Depressed affect Current Visit: No Status: Acute (13) Substance-induced sleep disorder Current Visit: No Status: Acute (14) Syncope Current Visit: Yes Status: Suspected (15) Depressive disorder Current Visit: No Status: Chronic (16) History of head injury Current Visit: No Status: Chronic (17) Seizure Current Visit: No Status: Chronic (18) Depression Current Visit: No Status: Suspected Qualifiers: Depression Type: unspecified Qualified Code(s): F32.9 - Major depressive disorder, single episode, unspecified - AMA Did Patient Leave Against Medical Advice: No
[2016-05-12 09:54] VITALS: BP 125/86; PULSE 82; TEMP 98.4
== END 2016-05-12 10:25 | disposition home or self-care (01) | DRG 774 ==
LOC: YASAS 00:21 → Y6N 00:38
PROVIDERS: ADMIT Internal Medicine Addiction Medicine; ATTEND Internal Medicine
PROC: HZ2ZZZZ Detoxification Services for Substance Abuse Treatment (ICD-10-PCS; principal; 2016-05-12)
DX: F10.230 Alcohol dependence with withdrawal, uncomplicated (principal); F14.20 Cocaine dependence, uncomplicated; F12.20 Cannabis dependence, uncomplicated; F17.210 Nicotine dependence, cigarettes, uncomplicated; F10.282 Alcohol dependence with alcohol-induced sleep disorder; F19.282 Other psychoactive substance dependence with psychoactive substance-induced sleep disorder; F32.9 Major depressive disorder, single episode, unspecified; K21.9 Gastro-esophageal reflux disease without esophagitis; J45.20 Mild intermittent asthma, uncomplicated
CPT/HCPCS: 36415; 80053; 81003; 85027; 86593; 93005; 93010

== ENCOUNTER 2016-06-13 22:15 | Inpatient (IN) | payer OTHER ==
[2016-06-13 23:35] VITALS: BMI 27.3
--- NOTE | 2016-06-13 23:47 | HP ---
CIWA Score - CIWA Score Nausea/Vomitin-Mild Nausea/No Vomiting Muscle Tremors: 4-Moderate,w/Arms Extend Anxiety: 4-Mod. Anxious/Guarded Agitation: 4-Moderately Restless Paroxysmal Sweats: 1-Minimal Palms Moist Orientation: 3-Disoriented Date>2 days Tacttile Disturbances: 0-None Auditory Disturbances: 0-None Visual Disturbances: 0-None Headache: 1-Very Mild CIWA-Ar Total Score: 18 Admission ROS S - HPI Chief Complaint: withdrawal sx Allergies/Adverse Reactions: Allergies Allergy/AdvReac Type Severity Reaction Status Date / Time acetaminophen [From Tylenol] Allergy Nausea Verified 06/14/16 01:34 ketamine Allergy Verified 06/14/16 01:34 History of Present Illness: 31 years old male with long history of alcohol nicotine dependence has cellulitis gerd right shoulder pain and depression is admitted to detox Exam Limitations: No Limitations - Ebola screening Have you traveled outside of the country in the last 21 days: No (N) Have you had contact with anyone from an Ebola affected area: No Have you been sick,other than usual withdrawal symptoms: No Do you have a fever: No - Review of Systems Constitutional: Chills, Changes in sleep, Weight Stable EENT: reports: No Symptoms Reported Respiratory: reports: No Symptoms reported Cardiac: reports: No Symptoms Reported GI: reports: Nausea, Poor Fluid Intake, Indigestion, Abdominal cramping : reports: No Symptoms Reported Musculoskeletal: reports: Neck Pain (right shoulder) Integumentary: reports: Change in Color, Lesions (left groin cellulitis) Neuro: reports: Seizure (07/2014 alcohol withdrawal related), Tremors Endocrine: reports: No Symptoms Reported Hematology: reports: No Symptoms Reported Psychiatric: reports: Judgement Intact, Anxious, Depressed Other Systems: Reviewed and Negative Patient History - Patient Medical History Hx Anemia: No Hx Asthma: Yes (takes Ventolin inhaler) Hx Chronic Obstructive Pulmonary Disease (COPD): No Hx Cancer: No Hx Cardiac Disorders: No Hx Congestive Heart Failure: No Hx Hypertension: No Hx Hypercholesterolemia: No Hx Pacemaker: No HX Cerebrovascular Accident: No Hx Seizures: Yes (alcohol related) Hx Dementia: No Hx Diabetes: No Hx Gastrointestinal Disorders: Yes (Acid Reflux) Hx Liver Disease: No Hx Genitourinary Disorders: No Hx Sexually Transmitted Disorders: No Hx Renal Disease (ESRD): No Hx Thyroid Disease: No Hx Human Immunodeficiency Virus (HIV): No Hx Hepatitis C: No Hx Depression: Yes Hx Suicide Attempt: No Hx Bipolar Disorder: No Hx Schizophrenia: No - Patient Surgical History Past Surgical History: Yes Hx Neurologic Surgery: No Hx Cataract Extraction: No Hx Cardiac Surgery: No Hx Lung Surgery: No Hx Breast Surgery: No Hx Breast Biopsy: No Hx Abdominal Surgery: No Hx Appendectomy: No Hx Cholecystectomy: No Hx Genitourinary Surgery: No Hx Orthopedic Surgery: Yes (SHOULDER(dISLOCATED) 06/2015) Anesthesia Reaction: No - PPD History Previous Implant?: Yes Documented Results: Negative w/o proof Implanted On Prior [facility] Admission?: Yes Date: 01/04/16 Results: 0MM PPD to be Administered?: No - Smoking Cessation Smoking history: Current every day smoker Have you smoked in the past 12 months: Yes Aproximately how many cigarettes per day: 15 Cigars Per Day: 0 Hx Chewing Tobacco Use: No Initiated information on smoking cessation: Yes 'Breaking Loose' booklet given: 06/13/16 - Substance & Tx. History Hx Alcohol Use: Yes Hx Substance Use: Yes Substance Use Type: Alcohol, Marijuana Hx Substance Use Treatment: Yes - Substances Abused Alcohol Route: Oral Frequency: Daily Amount used: 40ozx8 beer Age of first use: 21 Date of Last Use: 06/13/16 Family Disease History - Family Disease History Family Disease History: Diabetes: Grandparent (grandmother alcohol, ), Heart Disease: Grandparent, Other: Grandparent, Mother (alcohol, hepatitis), Brother ( alcohol,seizure,) Admission Physical Exam S - Vital Signs Vital Signs: Vital Signs - 24 hr 06/13/16 23:33 Temperature 97.7 F Pulse Rate 82 Respiratory 20 Rate Blood Pressure 147/97 - Physical General Appearance: Yes: Nourished, Appropriately Dressed, Moderate Distress, Alcohol on Breath, Tremorous, Irritable, Sweating, Anxious HEENTM: Yes: Hearing grossly Normal, Normal ENT Inspection, Normocephalic, Normal Voice Respiratory: Yes: Chest Non-Tender, Lungs Clear, Normal Breath Sounds, No Respiratory Distress, No Accessory Muscle Use Neck: Yes: Supple, Trachea in good position Breast: Yes: Breasts Symetrical Cardiology: Yes: Regular Rhythm, S1, S2, Tachycardia Abdominal: Yes: Non Tender, Soft Genitourinary: Yes: Within Normal Limits Back: Yes: Normal Inspection Musculoskeletal: Yes: full range of Motion, Gait Steady, Muscle Pain (right shoulder) Extremities: Yes: Normal Inspection, Normal Range of Motion, Non-Tender, Tremors Neurological: Yes: Alert, Motor Strength 5/5, Normal Response, Depressed Affect Integumentary: Yes: Warm Lymphatic: Yes: Within Normal Limits - Diagnostic (1) Alcohol dependence with uncomplicated intoxication Current Visit: Yes Status: Acute (2) Asthma Current Visit: Yes Status: Chronic Qualifiers: Asthma severity: mild intermittent Asthma complication type: with status asthmaticus Qualified Code(s): J45.22 - Mild intermittent asthma with status asthmaticus (3) GERD (gastroesophageal reflux disease) Current Visit: Yes Status: Chronic Qualifiers: Esophagitis presence: without esophagitis Qualified Code(s): K21.9 - Gastro-esophageal reflux disease without esophagitis (4) Nicotine dependence Current Visit: Yes Status: Acute Qualifiers: Nicotine product type: cigarettes Substance use status: in withdrawal Qualified Code(s): F17.213 - Nicotine dependence, cigarettes, with withdrawal (5) Depression Current Visit: Yes Status: Suspected Qualifiers: Depression Type: unspecified Qualified Code(s): F32.9 - Major depressive disorder, single episode, unspecified Comment: lexapro twin brother annuverary (6) Cellulitis Current Visit: Yes Status: Acute Qualifiers: Site of cellulitis: other site Qualified Code(s): L03.818 - Cellulitis of other sites Comment: left groin Cleared for Admission [facility] - Detox or Rehab [facility] Level of Care: Medically Managed Detox Regimen/Protocol: Librium [facility] Breath Alcohol Content Breath Alcohol Content: 0.129 Urine Drug Screen - Results Drug Screen Negative: No Urine Drug Screen Results: THC-Marijuana, OXY-Oxycodone
[2016-06-13] MEDS ORDERED: MAGNESIUM HYDROX 2400MG/30ML ORAL SUSPENSION 30 ML CUP PO PRN (23:52)
[2016-06-13] MEDS ORDERED: MAGNESIUM CITRATE 300 ML BOTTLE PO PRN (23:52)
[2016-06-13] MEDS ORDERED: chlordiazePOXIDE HCL 25 MG CAPSULE PO ONE (23:52)
[2016-06-13] MEDS ORDERED: NICOTINE POLACRILEX 4 MG GUM BC PRN (23:52)
[2016-06-13] MEDS ORDERED: P-EPHED 60MG/TRIPROLIDI 2.5MG TABLET PO PRN (23:52)
[2016-06-13] MEDS ORDERED: MENTHOL/PHENOL 1 EACH UD MM PRN (23:52)
[2016-06-13] MEDS ORDERED: diphenhydrAMINE HCL 50 MG CAPSULE PO PRN (23:52)
[2016-06-13] MEDS ORDERED: guaiFENesin/D-METHORPHAN HB 10 ML UNIT-DOSE CUPS PO PRN (23:52)
[2016-06-14] MEDS ORDERED: ALBUTEROL SO4 6.7 GM HFA INHALER IH PRN
[2016-06-14] MEDS ORDERED: ALBUTEROL SO4 2.5/IPRATROPIUM 0.5 INH SOL 3 ML VIAL.NEB. NEB PRN (00:01)
[2016-06-14] MEDS: chlordiazePOXIDE HCL 25 MG CAPSULE PO SCH ×5 (01:39→22:14)
[2016-06-14] MEDS: MAG HYDROX/AL HYDROX/SIMETH 30 ML UNIT-DOSE CUP PO PRN (02:30)
[2016-06-14] MEDS: GABAPENTIN 300 MG CAPSULE (FP) PO SCH ×3 (05:30→22:14)
[2016-06-14 09:42] LABS: MCHC 34.3 g/dl (32.0-35.9); MEAN CELL VOLUME 90.4 fl (80-96); PLATELET COUNT 223 K/MM3 (134-434); RDW 13.1 % (11.9-15.9); WHITE BLOOD COUNT 7.9 K/mm3 (4.0-10.0)
[2016-06-14 09:56] LABS: SGOT/AST 29 U/L (15-37); SGPT/ALT 29 U/L (12-78)
[2016-06-14 10:00] LABS: ALBUMIN 4.1 g/dl (3.4-5.0); ALK PHOS 98 U/L (45-117); ANION GAP 9 (8-16); BILIRUBIN,TOTAL 0.5 mg/dL (0.2-1.0); CO2 28 mmol/L (21-32); COCKROFT - GAULT 166.69; CREATININE 0.8 mg/dL (0.7-1.3); GLUCOSE,RANDOM 74 mg/dL (74-106); TOT PROT 7.3 g/dl (6.4-8.2)
[2016-06-14] MEDS ORDERED: CEPHALEXIN MONOHYDRATE 500 MG CAPSULE (UD) PO SCH (10:00)
[2016-06-14] MEDS: PRENATAL VITAMINS W/ FOLIC ACID TABLET (FP) PO SCH (10:15)
[2016-06-14] MEDS: RANITIDINE HCL 150 MG TABLET (FP) PO SCH ×2 (10:15→22:14)
[2016-06-14] MEDS: NICOTINE 21 MG/24 HOURS TOPICAL PATCH TD SCH (10:15)
--- NOTE | 2016-06-14 12:41 | PN ---
[facility] CIWA - CIWA Score Nausea/Vomitin-No Nausea/No Vomiting Muscle Tremors: 4-Moderate,w/Arms Extend Anxiety: 4-Mod. Anxious/Guarded Agitation: 3 Paroxysmal Sweats: 3 Orientation: 0-Oriented Tacttile Disturbances: 0-None Auditory Disturbances: 0-None Visual Disturbances: 0-None Headache: 0-None Present CIWA-Ar Total Score: 14 BHS Progress Note (SOAP) Subjective: Anxiety,tremors,sweating,interrupted sleep,restless Objective: 06/14/16 12:40 Vital Signs - 8 hr 06/14/16 06/14/16 06:21 09:11 Temperature 96 F L 96.0 F L Pulse Rate 58 L 70 Respiratory 16 20 Rate Blood Pressure 148/90 137/92 Laboratory Tests 06/14/16 06/14/16 07:00 07:00 WBC 7.9 RBC 4.98 Hgb 15.4 Hct 45.0 MCV 90.4 MCHC 34.3 RDW 13.1 Plt Count 223 MPV 8.0 Sodium 140 Potassium 3.8 Chloride 103 Carbon Dioxide 28 D Anion Gap 9 BUN 7 Creatinine 0.8 Creat Clearance w eGFR > 60 Random Glucose 74 Calcium 9.0 Total Bilirubin 0.5 AST 29 ALT 29 Alkaline Phosphatase 98 Total Protein 7.3 Albumin 4.1 labs noted Assessment: 06/14/16 12:40 Withdrawal sx. Plan: Continue detox
[2016-06-14] MEDS: chlordiazePOXIDE HCL 25 MG CAPSULE PO PRN (12:53)
[2016-06-14] MEDS: LOPERAMIDE HCL 2 MG CAPSULE PO PRN (12:53)
[2016-06-14] MEDS: NAPROXEN 500 MG TABLET (FP) PO PRN (12:53)
--- NOTE | 2016-06-14 13:08 | EKG ---
Test Reason : Blood Pressure : / mmHG Vent. Rate : 060 BPM Atrial Rate : 060 BPM P-R Int : 148 ms QRS Dur : 098 ms QT Int : 404 ms P-R-T Axes : 043 052 052 degrees QTc Int : 404 ms NORMAL SINUS RHYTHM NORMAL ECG WHEN COMPARED WITH ECG OF 09-MAY-2016 00:27, NO SIGNIFICANT CHANGE WAS FOUND BASELINE ARTIFACT Confirmed by DANA SCHOFIELD MD ([id number]) on 06/14/2016 1:07:25 PM Referred By: Confirmed By:DANA SCHOFIELD MD
[2016-06-14] MEDS ORDERED: CEPHALEXIN MONOHYDRATE 500 MG PO SCH (13:57)
[2016-06-14] MEDS: CEPHALEXIN MONOHYDRATE 500 MG PO SCH ×2 (14:11→22:15)
[2016-06-14 17:02] LABS: URINE APPEARANCE CLEAR; URINE BILIRUBIN NEGATIVE (NEGATIVE); URINE BLOOD NEGATIVE (NEGATIVE); URINE COLOR DKYELLOW; URINE GLUCOSE (UA) NEGATIVE (NEGATIVE); URINE KETONE TRACE (NEGATIVE); URINE LEUK ESTERASE NEGATIVE (NEGATIVE); URINE NITRITE NEGATIVE (NEGATIVE); URINE UROBILINOGEN NEGATIVE E.U./dl (0.2-1.0)
--- NOTE | 2016-06-14 17:31 | CONSULT ---
[facility] Psychiatric Consult - Data Date of interview: 06/14/16 Admission source: [facility] Identifying data: Readmission to [facility] for this 31 y/o male seeking detoxification treatment on for alcohol and marijuana dependence.Patient is single without children,domiciled and awaiting re- employment.. Substance Abuse History: - Smoking Cessation. Smoking history: Current every day smoker. Have you smoked in the past 12 months: Yes. Aproximately how many cigarettes per day: 15. Cigars Per Day: 0. Hx Chewing Tobacco Use: No. Initiated information on smoking cessation: Yes. 'Breaking Loose' booklet given : 06/13/16. - Substance & Tx. History. Hx Alcohol Use: Yes. Hx Substance Use : Yes. Substance Use Type: Alcohol, Marijuana. Hx Substance Use Treatment: Yes. - Substances Abused. Alcohol. Route: Oral. Frequency: Daily. Amount used: 40ozx8 beer. Age of first use: 21. Date of Last Use: 06/13/16. Confirmed by patient. Medical History: Seizure disorder (on levetiracetam) and bronchial asthma.Distant history of right shoulder dislocation (seizure-related fall) and Fx of left leg (age [age]) and right hand (boxer fracture). Psychiatric History: No reported history of psychiatric hospitalizations.Diagnosed with MDD.Mr Maldonado remains estranged to [facility] care.He relies on his primary care doctor for scripts (seroquel 100m/hs + lexapro 10 mg/ day).No history of suicide attempts. Physical/Sexual Abuse/Trauma History: Patient denies. Additional Comment: Urine Drug Screen Results: THC-Marijuana, OXY- Oxycodone.Noted. Mental Status Exam - Mental Status Exam Alert and Oriented to: Time, Place, Person Cognitive Function: Good Patient Appearance: Well Groomed Mood: Hopeful, Euthymic Affect: Appropriate, Normal Range Patient Behavior: Fatigued, Appropriate, Cooperative Speech Pattern: Clear, Appropriate Voice Loudness: Normal Thought Process: Goal Oriented Thought Disorder: Not Present Hallucinations: Denies Suicidal Ideation: Denies Homicidal Ideation: Denies Insight/Judgement: Poor Sleep: Poorly, Difficulty falling asleep Appetite: Good Muscle strength/Tone: Normal Gait/Station: Normal Psychiatric Findings - Problem List ([place] 1, 2,3) (1) Alcohol dependence with uncomplicated intoxication Current Visit: Yes Status: Acute (2) Marijuana dependence Current Visit: Yes Status: Acute (3) Nicotine dependence Current Visit: Yes Status: Acute Qualifiers: Nicotine product type: cigarettes Substance use status: in withdrawal Qualified Code(s): F17.213 - Nicotine dependence, cigarettes, with withdrawal (4) Substance-induced sleep disorder Current Visit: Yes Status: Acute (5) Substance induced mood disorder Current Visit: Yes Status: Acute (6) Depressive disorder Current Visit: Yes Status: Chronic (7) Asthma Current Visit: Yes Status: Chronic Qualifiers: Asthma severity: mild intermittent Asthma complication type: with status asthmaticus Qualified Code(s): J45.22 - Mild intermittent asthma with status asthmaticus (8) GERD (gastroesophageal reflux disease) Current Visit: Yes Status: Chronic Qualifiers: Esophagitis presence: without esophagitis Qualified Code(s): K21.9 - Gastro-esophageal reflux disease without esophagitis (9) Seizure Current Visit: Yes Status: Chronic - Initial Treatment Plan Initial Treatment Plan: Psychoeducation.Detoxification.Medications (patient's request) : lexapro 10 mg po daily + seroquel 100 mg po hs.Side effects/benefits discussed with patient.He agrees with this careplan.Observation.
[2016-06-14 17:35] LABS: URINE PROTEIN 1+ (NEGATIVE)
[2016-06-14 17:42] LABS: URINE HYALINE CAST 3 /lpf; URINE MUCUS MANY; URINE RBC 2 /hpf (0-3); URINE WBC 2 /hpf (3-5)
[2016-06-14] MEDS: THIAMINE HCL 100 MG TABLET (FP) PO SCH (22:14)
[2016-06-14] MEDS: QUEtiapine FUMARATE 100 MG TABLET (FP) PO SCH (22:14)
[2016-06-15] MEDS: GABAPENTIN 300 MG CAPSULE (FP) PO SCH ×3 (05:09→22:12)
[2016-06-15] MEDS: chlordiazePOXIDE HCL 25 MG CAPSULE PO SCH ×3 (05:09→17:03)
[2016-06-15] MEDS: CEPHALEXIN MONOHYDRATE 500 MG PO SCH ×2 (10:15→22:13)
[2016-06-15] MEDS: PRENATAL VITAMINS W/ FOLIC ACID TABLET (FP) PO SCH (10:16)
[2016-06-15] MEDS: NICOTINE 21 MG/24 HOURS TOPICAL PATCH TD SCH (10:16)
[2016-06-15] MEDS: RANITIDINE HCL 150 MG TABLET (FP) PO SCH ×2 (10:16→22:12)
[2016-06-15] MEDS: NAPROXEN 500 MG TABLET (FP) PO PRN (10:16)
[2016-06-15] MEDS: ESCITALOPRAM OXALATE 10 MG TABLET (FP) PO SCH (10:16)
[2016-06-15] MEDS: MAG HYDROX/AL HYDROX/SIMETH 30 ML UNIT-DOSE CUP PO PRN (13:29)
[2016-06-15] MEDS: chlordiazePOXIDE HCL 25 MG CAPSULE PO PRN (13:29)
[2016-06-15] MEDS: LOPERAMIDE HCL 2 MG CAPSULE PO PRN (13:57)
--- NOTE | 2016-06-15 15:49 | PN ---
[facility] CIWA - CIWA Score Nausea/Vomitin-No Nausea/No Vomiting Muscle Tremors: 3 Anxiety: 4-Mod. Anxious/Guarded Agitation: 3 Paroxysmal Sweats: 3 Orientation: 0-Oriented Tacttile Disturbances: 0-None Auditory Disturbances: 0-None Visual Disturbances: 0-None Headache: 0-None Present CIWA-Ar Total Score: 13 BHS Progress Note (SOAP) Subjective: Anxiety,tremors,sweating,interrupted sleep,restless Objective: 06/15/16 15:47 Vital Signs - 8 hr 06/15/16 06/15/16 09:58 13:15 Temperature 97.9 F 95.4 F L Pulse Rate 61 67 Respiratory 18 18 Rate Blood Pressure 145/98 126/92 Laboratory Tests 06/14/16 06/14/16 06/14/16 07:00 07:00 07:00 WBC 7.9 RBC 4.98 Hgb 15.4 Hct 45.0 MCV 90.4 MCHC 34.3 RDW 13.1 Plt Count 223 MPV 8.0 Sodium 140 Potassium 3.8 Chloride 103 Carbon Dioxide 28 D Anion Gap 9 BUN 7 Creatinine 0.8 Creat Clearance w eGFR > 60 Random Glucose 74 Calcium 9.0 Total Bilirubin 0.5 AST 29 ALT 29 Alkaline Phosphatase 98 Total Protein 7.3 Albumin 4.1 Urine Color Urine Appearance Urine pH Ur Specific [place] Urine Protein Urine Glucose (UA) Urine Ketones Urine Blood Urine Nitrite Urine Bilirubin Urine Urobilinogen Ur Leukocyte Esterase Urine RBC Urine WBC Ur Epithelial Cells Hyaline Casts Urine Mucus RPR Titer Nonreactive 06/14/16 13:45 WBC RBC Hgb Hct MCV MCHC RDW Plt Count MPV Sodium Potassium Chloride Carbon Dioxide Anion Gap BUN Creatinine Creat Clearance w eGFR Random Glucose Calcium Total Bilirubin AST ALT Alkaline Phosphatase Total Protein Albumin Urine Color Dkyellow Urine Appearance Clear Urine pH 6.0 Ur Specific [place] 1.027 Urine Protein 1+ H Urine Glucose (UA) Negative Urine Ketones Trace H Urine Blood Negative Urine Nitrite Negative Urine Bilirubin Negative Urine Urobilinogen Negative Ur Leukocyte Esterase Negative Urine RBC 2 Urine WBC 2 Ur Epithelial Cells Rare Hyaline Casts 3 Urine Mucus Many RPR Titer labs noted Assessment: 06/15/16 15:48 Withdrawal sx. Plan: Continue detox
[2016-06-15] MEDS ORDERED: QUEtiapine FUMARATE 50 MG TABLET ONE (21:01)
[2016-06-15] MEDS: chlordiazePOXIDE 5 MG CAPSULE PO SCH (22:12)
[2016-06-15] MEDS: QUEtiapine FUMARATE 100 MG TABLET (FP) PO SCH (22:12)
[2016-06-15] MEDS: THIAMINE HCL 100 MG TABLET (FP) PO SCH (22:12)
[2016-06-16] MEDS: chlordiazePOXIDE 5 MG CAPSULE PO SCH ×2 (05:45→10:20)
[2016-06-16] MEDS: GABAPENTIN 300 MG CAPSULE (FP) PO SCH ×2 (05:46→13:07)
[2016-06-16] MEDS: PRENATAL VITAMINS W/ FOLIC ACID TABLET (FP) PO SCH (10:19)
[2016-06-16] MEDS: CEPHALEXIN MONOHYDRATE 500 MG PO SCH (10:19)
[2016-06-16] MEDS: RANITIDINE HCL 150 MG TABLET (FP) PO SCH (10:20)
[2016-06-16] MEDS: NICOTINE 21 MG/24 HOURS TOPICAL PATCH TD SCH (10:20)
[2016-06-16] MEDS: ESCITALOPRAM OXALATE 10 MG TABLET (FP) PO SCH (10:20)
--- NOTE | 2016-06-16 12:19 | PN ---
BHS Progress Note (SOAP) Subjective: Body aches, Sweating. Objective: PT. A & O X 3. 06/16/16 12:17 Vital Signs Temperature 95.5 F L 06/16/16 09:46 Pulse Rate 52 L 06/16/16 09:46 Respiratory Rate 18 06/16/16 09:46 Blood Pressure 132/94 06/16/16 09:46 O2 Sat by Pulse Oximetry (%) Laboratory Last Values WBC 7.9 K/mm3 (4.0-10.0) 06/14/16 07:00 RBC 4.98 M/mm3 (4.00-5.60) 06/14/16 07:00 Hgb 15.4 GM/dL (11.7-16.9) 06/14/16 07:00 Hct 45.0 % (35.4-49) 06/14/16 07:00 MCV 90.4 fl (80-96) 06/14/16 07:00 MCHC 34.3 g/dl (32.0-35.9) 06/14/16 07:00 RDW 13.1 % (11.9-15.9) 06/14/16 07:00 Plt Count 223 K/MM3 (134-434) 06/14/16 07:00 MPV 8.0 fl (7.5-11.1) 06/14/16 07:00 Sodium 140 mmol/L (136-145) 06/14/16 07:00 Potassium 3.8 mmol/L (3.5-5.1) 06/14/16 07:00 Chloride 103 mmol/L (98-107) 06/14/16 07:00 Carbon Dioxide 28 mmol/L (21-32) D 06/14/16 07:00 Anion Gap 9 (8-16) 06/14/16 07:00 BUN 7 mg/dL (7-18) 06/14/16 07:00 Creatinine 0.8 mg/dL (0.7-1.3) 06/14/16 07:00 Creat Clearance w eGFR > 60 (>60) 06/14/16 07:00 Random Glucose 74 mg/dL (74-106) 06/14/16 07:00 Calcium 9.0 mg/dL (8.5-10.1) 06/14/16 07:00 Total Bilirubin 0.5 mg/dL (0.2-1.0) 06/14/16 07:00 AST 29 U/L (15-37) 06/14/16 07:00 ALT 29 U/L (12-78) 06/14/16 07:00 Alkaline Phosphatase 98 U/L (45-117) 06/14/16 07:00 Total Protein 7.3 g/dl (6.4-8.2) 06/14/16 07:00 Albumin 4.1 g/dl (3.4-5.0) 06/14/16 07:00 Urine Color Dkyellow 06/14/16 13:45 Urine Appearance Clear 06/14/16 13:45 Urine pH 6.0 (5.0-8.0) 06/14/16 13:45 Ur Specific [place] 1.027 (1.001-1.035) 06/14/16 13:45 Urine Protein 1+ (NEGATIVE) H 06/14/16 13:45 Urine Glucose (UA) Negative (NEGATIVE) 06/14/16 13:45 Urine Ketones Trace (NEGATIVE) H 06/14/16 13:45 Urine Blood Negative (NEGATIVE) 06/14/16 13:45 Urine Nitrite Negative (NEGATIVE) 06/14/16 13:45 Urine Bilirubin Negative (NEGATIVE) 06/14/16 13:45 Urine Urobilinogen Negative E.U./dl (0.2-1.0) 06/14/16 13:45 Ur Leukocyte Esterase Negative (NEGATIVE) 06/14/16 13:45 Urine RBC 2 /hpf (0-3) 06/14/16 13:45 Urine WBC 2 /hpf (3-5) 06/14/16 13:45 Ur Epithelial Cells Rare /hpf (FEW) 06/14/16 13:45 Hyaline Casts 3 /lpf 06/14/16 13:45 Urine Mucus Many 06/14/16 13:45 RPR Titer Nonreactive (NONREACTIVE) 06/14/16 07:00 LABS NOTED. Assessment: 06/16/16 12:18 WITHDRAWAL SYMPTOMS. Plan: CONTINUE DETOX. ADVISED PATIENT TO FOLLOW-UP WITH [employer] [employer] / REHAB MEDICAL PROVIDER AFTER DISCHARGE FROM DETOX FOR GENERAL MEDICAL ASSESSMENT AND FOR ABNORMAL ADMISSION LAB VALUES.
[2016-06-16 13:14] VITALS: BP 146/91; PULSE 67; TEMP 95.6
--- NOTE | 2016-06-16 16:54 | DS ---
[facility] Detox Discharge Summary Admission Date: 06/13/16 Discharge Date: 06/16/16 - History Present History: Alcohol Dependence Additional Comments: ADVISED PT. TO FOLLOW-UP WITH HOME HEALTH NURSE FOR GENERAL MEDICAL ASSESSMENT. Pertinent Past History: Asthma, Seizures (Substance-induced), GERD. - Physical Exam Results Vital Signs: Vital Signs Temperature 95.6 F L 06/16/16 13:13 Pulse Rate 67 06/16/16 13:13 Respiratory Rate 18 06/16/16 13:13 Blood Pressure 146/91 06/16/16 13:13 O2 Sat by Pulse Oximetry (%) Pertinent Admission Physical Exam Findings: WITHDRAWAL SYMPTOMS. Laboratory Last Values WBC 7.9 K/mm3 (4.0-10.0) 06/14/16 07:00 RBC 4.98 M/mm3 (4.00-5.60) 06/14/16 07:00 Hgb 15.4 GM/dL (11.7-16.9) 06/14/16 07:00 Hct 45.0 % (35.4-49) 06/14/16 07:00 MCV 90.4 fl (80-96) 06/14/16 07:00 MCHC 34.3 g/dl (32.0-35.9) 06/14/16 07:00 RDW 13.1 % (11.9-15.9) 06/14/16 07:00 Plt Count 223 K/MM3 (134-434) 06/14/16 07:00 MPV 8.0 fl (7.5-11.1) 06/14/16 07:00 Sodium 140 mmol/L (136-145) 06/14/16 07:00 Potassium 3.8 mmol/L (3.5-5.1) 06/14/16 07:00 Chloride 103 mmol/L (98-107) 06/14/16 07:00 Carbon Dioxide 28 mmol/L (21-32) D 06/14/16 07:00 Anion Gap 9 (8-16) 06/14/16 07:00 BUN 7 mg/dL (7-18) 06/14/16 07:00 Creatinine 0.8 mg/dL (0.7-1.3) 06/14/16 07:00 Creat Clearance w eGFR > 60 (>60) 06/14/16 07:00 Random Glucose 74 mg/dL (74-106) 06/14/16 07:00 Calcium 9.0 mg/dL (8.5-10.1) 06/14/16 07:00 Total Bilirubin 0.5 mg/dL (0.2-1.0) 06/14/16 07:00 AST 29 U/L (15-37) 06/14/16 07:00 ALT 29 U/L (12-78) 06/14/16 07:00 Alkaline Phosphatase 98 U/L (45-117) 06/14/16 07:00 Total Protein 7.3 g/dl (6.4-8.2) 06/14/16 07:00 Albumin 4.1 g/dl (3.4-5.0) 06/14/16 07:00 Urine Color Dky[place] 06/14/16 13:45 Urine Appearance Clear 06/14/16 13:45 Urine pH 6.0 (5.0-8.0) 06/14/16 13:45 Ur Specific [place] 1.027 (1.001-1.035) 06/14/16 13:45 Urine Protein 1+ (NEGATIVE) H 06/14/16 13:45 Urine Glucose (UA) Negative (NEGATIVE) 06/14/16 13:45 Urine Ketones Trace (NEGATIVE) H 06/14/16 13:45 Urine Blood Negative (NEGATIVE) 06/14/16 13:45 Urine Nitrite Negative (NEGATIVE) 06/14/16 13:45 Urine Bilirubin Negative (NEGATIVE) 06/14/16 13:45 Urine Urobilinogen Negative E.U./dl (0.2-1.0) 06/14/16 13:45 Ur Leukocyte Esterase Negative (NEGATIVE) 06/14/16 13:45 Urine RBC 2 /hpf (0-3) 06/14/16 13:45 Urine WBC 2 /hpf (3-5) 06/14/16 13:45 Ur Epithelial Cells Rare /hpf (FEW) 06/14/16 13:45 Hyaline Casts 3 /lpf 06/14/16 13:45 Urine Mucus Many 06/14/16 13:45 RPR Titer Nonreactive (NONREACTIVE) 06/14/16 07:00 LABS NOTED. - Treatment Hospital Course: Detoxed Safely - Medication Discharge Medications: Ambulatory Orders Albuterol Sulfate Inhaler - [Ventolin HFA Inhaler -] 2 puff IH Q4H PRN #0 inhaler 03/01/16 Gabapentin [Neurontin -] 300 mg PO TID capsule 03/01/16 Escitalopram Oxalate [Lexapro -] 10 mg PO DAILY #30 tablet 05/11/16 Quetiapine Fumarate [Seroquel] 100 mg PO HS #30 tablet 05/11/16 Escitalopram Oxalate [Lexapro -] 10 mg PO DAILY #30 tablet 06/14/16 Gabapentin 600 mg PO HS 06/14/16 Quetiapine Fumarate [Seroquel] 100 mg PO HS #30 tablet 06/14/16 - Diagnosis (1) Alcohol dependence with uncomplicated intoxication Current Visit: Yes Status: Acute (2) Cellulitis Current Visit: Yes Status: Acute Qualifiers: Site of cellulitis: unspecified site Qualified Code(s): L03.90 - Cellulitis, unspecified (3) Nicotine dependence Current Visit: Yes Status: Chronic Qualifiers: Nicotine product type: cigarettes Substance use status: in withdrawal Qualified Code(s): F17.213 - Nicotine dependence, cigarettes, with withdrawal (4) Asthma Current Visit: Yes Status: Chronic Qualifiers: Asthma severity: mild intermittent Asthma complication type: with status asthmaticus Qualified Code(s): J45.22 - Mild intermittent asthma with status asthmaticus (5) GERD (gastroesophageal reflux disease) Current Visit: Yes Status: Chronic Qualifiers: Esophagitis presence: without esophagitis Qualified Code(s): K21.9 - Gastro-esophageal reflux disease without esophagitis (6) Seizure Current Visit: Yes Status: Chronic (7) Alcohol-induced mood disorder Current Visit: Yes Status: Acute (8) Alcohol dependence with uncomplicated withdrawal Current Visit: Yes Status: Acute - AMA Did Patient Leave Against Medical Advice: Yes (PATIENT DID NOT ANT TO STAY TO COMPLETE DETOX REGIMEN.)
[2016-06-16] MEDS ORDERED: chlordiazePOXIDE HCL 10 MG CAPSULE PO SCH (23:00)
== END 2016-06-16 17:03 | disposition left against medical advice (07) | DRG 770 ==
LOC: YASAS 22:15 → Y3N 23:56
PROVIDERS: ADMIT Internal Medicine; ATTEND Internal Medicine
PROC: HZ2ZZZZ Detoxification Services for Substance Abuse Treatment (ICD-10-PCS; principal; 2016-06-16)
DX: F10.230 Alcohol dependence with withdrawal, uncomplicated (principal); F12.20 Cannabis dependence, uncomplicated; F17.213 Nicotine dependence, cigarettes, with withdrawal; F19.282 Other psychoactive substance dependence with psychoactive substance-induced sleep disorder; F10.24 Alcohol dependence with alcohol-induced mood disorder; F19.24 Other psychoactive substance dependence with psychoactive substance-induced mood disorder; F34.1 Dysthymic disorder; G40.909 Epilepsy, unspecified, not intractable, without status epilepticus; J45.22 Mild intermittent asthma with status asthmaticus; K21.9 Gastro-esophageal reflux disease without esophagitis; L03.314 Cellulitis of groin
CPT/HCPCS: 36415; 80053; 81003; 81015; 85027; 86593; 93005; 93010

== ENCOUNTER 2016-06-26 02:00 | Inpatient (IN) | payer OTHER ==
[2016-06-26 02:23] VITALS: BMI 27.6
--- NOTE | 2016-06-26 02:23 | HP ---
CIWA Score - CIWA Score Nausea/Vomitin Muscle Tremors: 3 Anxiety: 3 Agitation: 4-Moderately Restless Paroxysmal Sweats: 3 Orientation: 1-Uncertain about Date Tacttile Disturbances: 0-None Auditory Disturbances: 1-Very Mild Visual Disturbances: 1-Very Mild Sensitivity Headache: 3-Moderate CIWA-Ar Total Score: 21 Admission ROS BHS - HPI Chief Complaint: WITHDRAWAL SYMPTOMS Allergies/Adverse Reactions: Allergies Allergy/AdvReac Type Severity Reaction Status Date / Time acetaminophen [From Tylenol] Allergy Nausea Verified 06/14/16 01:34 ketamine Allergy Verified 06/14/16 01:34 History of Present Illness: 31 Y.O. MAN WITH AN EXTENSIVE H/O ALCOHOL DEPENDENCE IS HERE SEEKING DETOX. HE WAS LAST HERE ON 06/16/16 AND LEFT AMA. Exam Limitations: Intoxication - Ebola screening Have you traveled outside of the country in the last 21 days: No - Review of Systems Constitutional: Loss of Appetite, Night Sweats, Weight Stable EENT: reports: No Symptoms Reported Respiratory: reports: Shortness of Breath Cardiac: reports: Palpitations GI: reports: Diarrhea, Abdominal cramping : reports: No Symptoms Reported Musculoskeletal: reports: Back Pain, Other (RIGHT SHOULDER PAIN) Integumentary: reports: Other (ABSCESS TO LEFT GROIN) Neuro: reports: Headache, Seizure (ETOH RELATED-2014), Tremors Endocrine: reports: No Symptoms Reported Hematology: reports: No Symptoms Reported Psychiatric: reports: Anxious, Depressed, other (PANIC ATTACKS) Other Systems: Reviewed and Negative Patient History - Patient Medical History Hx Anemia: No Hx Asthma: Yes (takes Ventolin inhaler) Hx Chronic Obstructive Pulmonary Disease (COPD): No Hx Cancer: No Hx Cardiac Disorders: No Hx Congestive Heart Failure: No Hx Hypertension: No Hx Hypercholesterolemia: No Hx Pacemaker: No HX Cerebrovascular Accident: No Hx Seizures: Yes (alcohol related) Hx Dementia: No Hx Diabetes: No Hx Gastrointestinal Disorders: Yes (Acid Reflux) Hx Liver Disease: No Hx Genitourinary Disorders: No Hx Sexually Transmitted Disorders: No Hx Renal Disease (ESRD): No Hx Thyroid Disease: No Hx Human Immunodeficiency Virus (HIV): No Hx Hepatitis C: No Hx Depression: Yes Hx Suicide Attempt: No Hx Bipolar Disorder: No Hx Schizophrenia: No - Patient Surgical History Past Surgical History: Yes Hx Neurologic Surgery: No Hx Cataract Extraction: No Hx Cardiac Surgery: No Hx Lung Surgery: No Hx Breast Surgery: No Hx Breast Biopsy: No Hx Abdominal Surgery: No Hx Appendectomy: No Hx Cholecystectomy: No Hx Genitourinary Surgery: No Hx Section: No Hx Orthopedic Surgery: Yes (SHOULDER(DISLOCATED) 06/2015) Anesthesia Reaction: No - PPD History Previous Implant?: Yes Documented Results: Negative w/proof Implanted On Prior [facility] Admission?: Yes Date: 01/04/16 Results: 0MM PPD to be Administered?: No - Reproductive History Patient is a Female of Child Bearing Age (11 -55 yrs old): No - Smoking Cessation Smoking history: Current every day smoker Have you smoked in the past 12 months: Yes Aproximately how many cigarettes per day: 20 Cigars Per Day: 0 Hx Chewing Tobacco Use: No Initiated information on smoking cessation: Yes 'Breaking Loose' booklet given: 06/26/16 - Substance & Tx. History Hx Alcohol Use: Yes Hx Substance Use: No Substance Use Type: Alcohol Hx Substance Use Treatment: Yes (DETOX AND REHAB ) - Substances Abused Alcohol Route: Oral Frequency: Daily Amount used: 7-8 CANS OF 24OZ OF BEER Age of first use: 13 Date of Last Use: 06/26/16 Family Disease History - Family Disease History Family Disease History: Diabetes: Grandparent (grandmother alcohol, ), Heart Disease: Grandparent, Other: Grandparent, Mother (alcohol, hepatitis), Brother ( alcohol,seizure,) Admission Physical Exam BHS - Vital Signs Vital Signs: Last Vital Signs Temp Pulse Resp BP Pulse Ox 96.8 F L 92 H 17 137/86 06/26/16 02:34 06/26/16 02:34 06/26/16 02:34 06/26/16 02:34 - Physical General Appearance: Yes: Alcohol on Breath, Intoxicated, Tremorous, Sweating, Anxious HEENTM: Yes: Hearing grossly Normal, Normocephalic, Normal Voice, Tm's normal Respiratory: Yes: Chest Non-Tender, Lungs Clear, Normal Breath Sounds, No Respiratory Distress, No Accessory Muscle Use Neck: Yes: No masses,lesions,Nodules, Trachea in good position Breast: Yes: Breast Exam Deferred Cardiology: Yes: Regular Rhythm, Regular Rate, S1, S2 Abdominal: Yes: Flat, Soft Genitourinary: Yes: Other (NO COMPLAINTS REPORTED) Back: Yes: Normal Inspection Musculoskeletal: Yes: Gait Steady Extremities: Yes: Normal Inspection, Normal Range of Motion, Non-Tender Neurological: Yes: Alert, Normal Mood/Affect, Normal Response Integumentary: Yes: Warm Lymphatic: Yes: Within Normal Limits - Diagnostic (1) Alcohol dependence with uncomplicated withdrawal Current Visit: Yes Status: Chronic (2) Cellulitis Current Visit: Yes Status: Acute Qualifiers: Site of cellulitis: unspecified site Qualified Code(s): L03.90 - Cellulitis, unspecified Comment: left groin (3) Asthma Current Visit: Yes Status: Chronic Qualifiers: Asthma severity: mild intermittent Asthma complication type: with status asthmaticus Qualified Code(s): J45.22 - Mild intermittent asthma with status asthmaticus (4) History of seizure Current Visit: Yes Status: Chronic (5) Nicotine dependence Current Visit: Yes Status: Chronic Qualifiers: Nicotine product type: cigarettes Substance use status: in withdrawal Qualified Code(s): F17.213 - Nicotine dependence, cigarettes, with withdrawal Cleared for Admission S - Detox or Rehab [facility] Level of Care: Medically Managed Detox Regimen/Protocol: Librium S Breath Alcohol Content Breath Alcohol Content: 0.357 Vital Signs - Vital Signs Vital Signs Refused: No Temperature: 96.8 F Temperature Source: Oral Pulse Rate: 92 Respiratory Rate: 17 Blood Pressure: 137/86 BP Location: Left Arm Blood Pressure Position: Sitting - Height Height: 5 ft 11 in - Weight Weight: 198 lb Weight Measurement Method: Standing Scale Body Mass Index (BMI): 27.6 Urine Drug Screen - Test Device Lot Number: [id number] Expiration Date: 01/26/17 - Control Is Test Valid: Yes - Results Drug Screen Negative: Yes
[2016-06-26] MEDS ORDERED: guaiFENesin/D-METHORPHAN HB 10 ML UNIT-DOSE CUPS PO PRN (02:41)
[2016-06-26] MEDS ORDERED: hydrOXYzine PAMOATE 50 MG CAPSULE (FP) PO PRN (02:41)
[2016-06-26] MEDS ORDERED: MAGNESIUM HYDROX 2400MG/30ML ORAL SUSPENSION 30 ML CUP PO PRN (02:41)
[2016-06-26] MEDS ORDERED: MENTHOL/PHENOL 1 EACH UD MM PRN (02:41)
[2016-06-26] MEDS ORDERED: MAG HYDROX/AL HYDROX/SIMETH 30 ML UNIT-DOSE CUP PO PRN (02:41)
[2016-06-26] MEDS ORDERED: IBUPROFEN 400 MG TABLET (FP) PO PRN (02:41)
[2016-06-26] MEDS ORDERED: LOPERAMIDE HCL 2 MG CAPSULE PO PRN (02:41)
[2016-06-26] MEDS ORDERED: chlordiazePOXIDE HCL 25 MG CAPSULE PO ONE (02:41)
[2016-06-26] MEDS ORDERED: diphenhydrAMINE HCL 50 MG CAPSULE PO PRN (02:41)
[2016-06-26] MEDS ORDERED: chlordiazePOXIDE HCL 25 MG CAPSULE PO PRN (02:41)
[2016-06-26] MEDS ORDERED: P-EPHED 60MG/TRIPROLIDI 2.5MG TABLET PO PRN (02:41)
[2016-06-26] MEDS ORDERED: MAGNESIUM CITRATE 300 ML BOTTLE PO PRN (02:41)
[2016-06-26] MEDS: chlordiazePOXIDE HCL 25 MG CAPSULE PO SCH ×3 (04:33→17:15)
[2016-06-26] MEDS ORDERED: CEPHALEXIN MONOHYDRATE 500 MG CAPSULE (UD) PO SCH (10:00)
[2016-06-26] MEDS ORDERED: PRENATAL VITAMINS W/ FOLIC ACID TABLET (FP) PO SCH (10:00)
--- NOTE | 2016-06-26 15:09 | PN ---
BHS CIWA - CIWA Score Nausea/Vomitin Muscle Tremors: 4-Moderate,w/Arms Extend Anxiety: 4-Mod. Anxious/Guarded Agitation: 4-Moderately Restless Paroxysmal Sweats: No Perspiration Orientation: 0-Oriented Tacttile Disturbances: 1-Very Mild Itch/Numbness Auditory Disturbances: 0-None Visual Disturbances: 0-None Headache: 2-Mild CIWA-Ar Total Score: 18 BHS Progress Note (SOAP) Subjective: Chills, tremor, nausea, sweating, interrupted sleep Objective: 06/26/16 15:07 Last Vital Signs Temp Pulse Resp BP Pulse Ox 96.3 F L 89 20 155/97 06/26/16 13:34 06/26/16 13:34 06/26/16 13:34 06/26/16 13:34 Admission labs: pending Assessment: 06/26/16 15:08 Withdrawal symptoms Plan: Continue detox
[2016-06-26 17:29] VITALS: BP 140/84; PULSE 73; TEMP 98.8
[2016-06-26 19:02] LABS: URINE APPEARANCE CLEAR; URINE BILIRUBIN NEGATIVE (NEGATIVE); URINE BLOOD NEGATIVE (NEGATIVE); URINE COLOR YELLOW; URINE GLUCOSE (UA) NEGATIVE (NEGATIVE); URINE KETONE NEGATIVE (NEGATIVE); URINE LEUK ESTERASE NEGATIVE (NEGATIVE); URINE NITRITE NEGATIVE (NEGATIVE); URINE PROTEIN NEGATIVE (NEGATIVE); URINE UROBILINOGEN NEGATIVE E.U./dl (0.2-1.0)
--- NOTE | 2016-06-26 20:04 | PN ---
S Progress Note Note: patient did not want to complete treatment,signed release ama,did not want to wait,seen by counselor
--- NOTE | 2016-06-26 20:13 | DS ---
[facility] Detox Discharge Summary Admission Date: 06/26/16 Discharge Date: 06/26/16 - History Present History: Alcohol Dependence Additional Comments: patient did not want to complete treatment,signed release ama,did not want to wait Pertinent Past History: asthma seizure nicotine dependence - Physical Exam Results Vital Signs: Vital Signs Temperature 98.8 F 06/26/16 17:28 Pulse Rate 73 06/26/16 17:28 Respiratory Rate 18 06/26/16 17:28 Blood Pressure 140/84 06/26/16 17:28 O2 Sat by Pulse Oximetry (%) Pertinent Admission Physical Exam Findings: withdrawal symptom - Medication Discharge Medications: Ambulatory Orders Gabapentin [Neurontin -] 300 mg PO TID capsule 03/01/16 Escitalopram Oxalate [Lexapro -] 10 mg PO DAILY #30 tablet 05/11/16 Quetiapine Fumarate [Seroquel] 100 mg PO HS #30 tablet 05/11/16 Escitalopram Oxalate [Lexapro -] 10 mg PO DAILY #30 tablet 06/14/16 Gabapentin 600 mg PO HS 06/14/16 Quetiapine Fumarate [Seroquel] 100 mg PO HS #30 tablet 06/14/16 Albuterol Sulfate Inhaler - [Ventolin HFA Inhaler -] 2 puff IH Q4H PRN #1 inhaler 06/26/16 Cephalexin Monohydrate [Keflex -] 1,000 mg PO BID #30 cap 06/26/16 - Diagnosis (1) Cellulitis Current Visit: Yes Status: Acute Qualifiers: Site of cellulitis: unspecified site Qualified Code(s): L03.90 - Cellulitis, unspecified (2) Alcohol dependence with uncomplicated withdrawal Current Visit: Yes Status: Chronic (3) Asthma Current Visit: Yes Status: Chronic Qualifiers: Asthma severity: mild intermittent Asthma complication type: with status asthmaticus Qualified Code(s): J45.22 - Mild intermittent asthma with status asthmaticus (4) History of seizure Current Visit: Yes Status: Chronic (5) Nicotine dependence Current Visit: Yes Status: Chronic Qualifiers: Nicotine product type: cigarettes Substance use status: in withdrawal Qualified Code(s): F17.213 - Nicotine dependence, cigarettes, with withdrawal (6) Alcohol dependence with uncomplicated intoxication Current Visit: No Status: Acute (7) Seizure Current Visit: No Status: Chronic - AMA Did Patient Leave Against Medical Advice: Yes
[2016-06-26] MEDS ORDERED: THIAMINE HCL 100 MG TABLET (FP) PO SCH (22:00)
--- NOTE | 2016-06-27 00:12 | EKG ---
Test Reason : Blood Pressure : / mmHG Vent. Rate : 074 BPM Atrial Rate : 074 BPM P-R Int : 166 ms QRS Dur : 096 ms QT Int : 390 ms P-R-T Axes : 033 052 056 degrees QTc Int : 432 ms NORMAL SINUS RHYTHM NORMAL ECG WHEN COMPARED WITH ECG OF 14-JUN-2016 00:42, NO SIGNIFICANT CHANGE WAS FOUND Confirmed by CORAZON MINOR MD ([id number]) on 06/27/2016 12:12:45 AM Referred By: Confirmed By:CORAZON MINOR MD
[2016-06-27] MEDS ORDERED: chlordiazePOXIDE HCL 25 MG CAPSULE PO SCH (05:00)
[2016-06-28] MEDS ORDERED: chlordiazePOXIDE 5 MG CAPSULE PO SCH (05:00)
[2016-06-29] MEDS ORDERED: chlordiazePOXIDE HCL 10 MG CAPSULE PO SCH (05:00)
== END 2016-06-26 07:50 | disposition left against medical advice (07) | DRG 770 ==
LOC: YASAS 02:00 → Y3N 02:22
PROVIDERS: ADMIT Internal Medicine; ATTEND Internal Medicine
PROC: HZ2ZZZZ Detoxification Services for Substance Abuse Treatment (ICD-10-PCS; principal; 2016-06-26)
DX: F10.230 Alcohol dependence with withdrawal, uncomplicated (principal); L03.90 Cellulitis, unspecified; J45.909 Unspecified asthma, uncomplicated; Z86.69 Personal history of other diseases of the nervous system and sense organs
CPT/HCPCS: 81003; 93005; 93010

== ENCOUNTER 2016-08-11 22:10 | Inpatient (IN) | payer OTHER ==
[2016-08-11 23:21] VITALS: BMI 28.1
--- NOTE | 2016-08-11 23:21 | HP ---
CIWA Score - CIWA Score Nausea/Vomitin Muscle Tremors: 3 Anxiety: 3 Agitation: 3 Paroxysmal Sweats: 3 Orientation: 1-Uncertain about Date Tacttile Disturbances: 2-Mild Itch/Numbness/Burn Auditory Disturbances: 1-Very Mild Visual Disturbances: 2-Mild Sensitivity Headache: 0-None Present CIWA-Ar Total Score: 20 Admission ROS BHS - HPI Chief Complaint: WITHDRAWAL SYMPTOMS Allergies/Adverse Reactions: Allergies Allergy/AdvReac Type Severity Reaction Status Date / Time ketamine Allergy Severe disoriented Verified 08/11/16 22:54 and confused acetaminophen [From Tylenol] Allergy Intermediate Nausea Verified 08/11/16 22:54 History of Present Illness: 31 Y.O. MAN WITH AN EXTENSIVE HISTORY OF ALCOHOL AND DRUG DEPENDENCE IS SEEKING DETOX. HE HAS HAD MULTIPLE ADMISSIONS HERE FOR DETOX AND HAS LEFT [place] IN THE LAST 3 MOST RECENT ADMISSIONS. Exam Limitations: Intoxication - Ebola screening Have you traveled outside of the country in the last 21 days: No Have you had contact with anyone from an Ebola affected area: No Do you have a fever: No - Review of Systems Constitutional: Diaphoresis, Changes in sleep EENT: reports: No Symptoms Reported Respiratory: reports: Shortness of Breath Cardiac: reports: Palpitations GI: reports: Diarrhea, Abdominal cramping : reports: No Symptoms Reported Musculoskeletal: reports: No Symptoms Reported Integumentary: reports: No Symptoms Reported Neuro: reports: Numbness, Seizure (LAST SZ 08/07/2014), Tingling, Tremors Endocrine: reports: No Symptoms Reported Hematology: reports: No Symptoms Reported Psychiatric: reports: Anxious, Depressed Other Systems: Reviewed and Negative Patient History - Patient Medical History Hx Anemia: No Hx Asthma: Yes Hx Chronic Obstructive Pulmonary Disease (COPD): No Hx Cancer: No Hx Cardiac Disorders: No Hx Congestive Heart Failure: No Hx Hypertension: No Hx Hypercholesterolemia: No Hx Pacemaker: No HX Cerebrovascular Accident: No Hx Seizures: Yes (07/2014 Etoh related seizure) Hx Dementia: No Hx Diabetes: No Hx Gastrointestinal Disorders: No Hx Liver Disease: No Hx Genitourinary Disorders: No Hx Sexually Transmitted Disorders: No Hx Renal Disease (ESRD): No Hx Thyroid Disease: No Hx Human Immunodeficiency Virus (HIV): No Hx Hepatitis C: No Hx Depression: Yes Hx Suicide Attempt: No Hx Bipolar Disorder: No Hx Schizophrenia: No - Patient Surgical History Past Surgical History: Yes Hx Neurologic Surgery: No Hx Cataract Extraction: No Hx Cardiac Surgery: No Hx Lung Surgery: No Hx Breast Surgery: No Hx Breast Biopsy: No Hx Abdominal Surgery: No Hx Appendectomy: No Hx Cholecystectomy: No Hx Genitourinary Surgery: No Hx Section: No Hx Orthopedic Surgery: Yes (RIGHT SHOULDER(DISLOCATED) 06/2015) Anesthesia Reaction: No - PPD History Previous Implant?: Yes Documented Results: Negative w/proof Implanted On Prior [facility] Admission?: Yes Date: 01/04/16 Results: 0 mm PPD to be Administered?: No - Reproductive History Patient is a Female of Child Bearing Age (11 -55 yrs old): No - Smoking Cessation Smoking history: Current every day smoker Have you smoked in the past 12 months: Yes Aproximately how many cigarettes per day: 20 Cigars Per Day: 0 Hx Chewing Tobacco Use: No Initiated information on smoking cessation: Yes 'Breaking Loose' booklet given: 08/11/16 - Substance & Tx. History Hx Alcohol Use: Yes Hx Substance Use: Yes Substance Use Type: Alcohol, Cocaine, Marijuana Hx Substance Use Treatment: Yes (DETOX HERE (06/26/16); REHAB AT [facility] [place] 01/2016) - Substances Abused Alcohol Route: Oral Frequency: Daily Amount used: beer 6-7 of 40 oz Age of first use: 13 Date of Last Use: 08/11/16 Cocaine Route: Inhalation Frequency: 1-3 times last 30 days Amount used: $100 Age of first use: 15 Date of Last Use: 08/09/16 Marijuana/Hashish Route: Smoking Frequency: Daily Amount used: 5-6 grams Age of first use: 14 Date of Last Use: 08/11/16 Family Disease History - Family Disease History Family Disease History: Diabetes: Grandparent (grandmother alcohol, ), Heart Disease: Grandparent, Other: Grandparent, Mother (alcohol, hepatitis), Brother ( alcohol,seizure,) Admission Physical Exam BHS - Vital Signs Vital Signs: Vital Signs - 24 hr 08/11/16 22:24 Temperature 99.1 F Pulse Rate 116 H Respiratory 20 Rate Blood Pressure 156/104 - Physical General Appearance: Yes: Alcohol on Breath, Intoxicated, Tremorous, Irritable, Sweating, Anxious HEENTM: Yes: Normocephalic, Normal Voice Respiratory: Yes: Chest Non-Tender, Lungs Clear, Normal Breath Sounds, No Respiratory Distress Neck: Yes: Trachea in good position Breast: Yes: Breast Exam Deferred Cardiology: Yes: Regular Rhythm, Tachycardia Abdominal: Yes: Non Tender, Flat, Soft Genitourinary: Yes: Other (No complaints reported) Back: Yes: Normal Inspection Musculoskeletal: Yes: Back pain Extremities: Yes: Normal Range of Motion, Non-Tender Neurological: Yes: Alert, Normal Response Integumentary: Yes: Normal Color, Dry, Warm Lymphatic: Yes: Within Normal Limits - Diagnostic (1) Alcohol dependence with uncomplicated intoxication Current Visit: Yes Status: Chronic (2) Marijuana dependence Current Visit: Yes Status: Chronic (3) Asthma Current Visit: Yes Status: Chronic Qualifiers: Asthma severity: mild intermittent Asthma complication type: with status asthmaticus Qualified Code(s): J45.22 - Mild intermittent asthma with status asthmaticus (4) Cocaine dependence Current Visit: Yes Status: Chronic Qualifiers: Substance use status: uncomplicated Qualified Code(s): F14.20 - Cocaine dependence, uncomplicated (5) History of seizure Current Visit: Yes Status: Chronic Cleared for Admission [facility] - Detox or Rehab [facility] Level of Care: Medically Managed Detox Regimen/Protocol: Librium [facility] Breath Alcohol Content Breath Alcohol Content: 0.204 Urine Drug Screen - Results Drug Screen Negative: No Urine Drug Screen Results: THC-Marijuana, EVETTE-Cocaine
[2016-08-11] MEDS ORDERED: P-EPHED 60MG/TRIPROLIDI 2.5MG TABLET PO PRN (23:38)
[2016-08-11] MEDS ORDERED: chlordiazePOXIDE HCL 25 MG CAPSULE PO ONE (23:38)
[2016-08-11] MEDS ORDERED: MENTHOL/PHENOL 1 EACH UD MM PRN (23:38)
[2016-08-11] MEDS ORDERED: hydrOXYzine PAMOATE 50 MG CAPSULE (FP) PO PRN (23:38)
[2016-08-11] MEDS ORDERED: NICOTINE POLACRILEX 2 MG GUM BC PRN (23:38)
[2016-08-11] MEDS ORDERED: guaiFENesin/D-METHORPHAN HB 10 ML UNIT-DOSE CUPS PO PRN (23:38)
[2016-08-11] MEDS ORDERED: MAGNESIUM HYDROX 2400MG/30ML ORAL SUSPENSION 30 ML CUP PO PRN (23:38)
[2016-08-11] MEDS ORDERED: LOPERAMIDE HCL 2 MG CAPSULE PO PRN (23:38)
[2016-08-11] MEDS ORDERED: IBUPROFEN 400 MG TABLET (FP) PO PRN (23:38)
[2016-08-11] MEDS ORDERED: MAGNESIUM CITRATE 300 ML BOTTLE PO PRN (23:38)
[2016-08-11] MEDS ORDERED: ALBUTEROL SO4 6.7 GM HFA INHALER IH PRN (23:41)
[2016-08-11] MEDS: chlordiazePOXIDE HCL 25 MG CAPSULE PO SCH (23:49)
[2016-08-11] MEDS: diphenhydrAMINE HCL 50 MG CAPSULE PO PRN (23:53)
[2016-08-12] MEDS: chlordiazePOXIDE HCL 25 MG CAPSULE PO SCH ×4 (05:58→22:05)
[2016-08-12] MEDS: MAG HYDROX/AL HYDROX/SIMETH 30 ML UNIT-DOSE CUP PO PRN (06:00)
[2016-08-12 10:00] LABS: MCH 31.3 pg (25.7-33.7); MCHC 34.4 g/dl (32.0-35.9); MEAN CELL VOLUME 90.8 fl (80-96); MEAN PLT VOLUME 8.3 fl (7.5-11.1); PLATELET COUNT 219 K/MM3 (134-434); RDW 13.2 % (11.9-15.9); WHITE BLOOD COUNT 10.8 K/mm3 (4.0-10.0)
[2016-08-12] MEDS: PRENATAL VITAMINS W/ FOLIC ACID TABLET (FP) PO SCH (10:37)
[2016-08-12] MEDS: NICOTINE 21 MG/24 HOURS TOPICAL PATCH TD SCH (10:38)
[2016-08-12] MEDS: cloNIDine HCL 0.1 MG TABLET PO PRN (10:39)
[2016-08-12 10:52] LABS: ALBUMIN 3.8 g/dl (3.4-5.0); ALK PHOS 91 U/L (45-117); ANION GAP 9 (8-16); BILIRUBIN,TOTAL 0.4 mg/dL (0.2-1.0); CALCIUM 8.7 mg/dL (8.5-10.1); CO2 27 mmol/L (21-32); CREATININE 0.8 mg/dL (0.7-1.3); GLUCOSE,RANDOM 84 mg/dL (74-106); SGOT/AST 21 U/L (15-37); SGPT/ALT 24 U/L (12-78); TOT PROT 6.9 g/dl (6.4-8.2)
--- NOTE | 2016-08-12 11:24 | PN ---
S CIWA - CIWA Score Nausea/Vomitin-No Nausea/No Vomiting Muscle Tremors: 3 Anxiety: 3 Agitation: 4-Moderately Restless Paroxysmal Sweats: 3 Orientation: 0-Oriented Tacttile Disturbances: 0-None Auditory Disturbances: 0-None Visual Disturbances: 0-None Headache: 1-Very Mild CIWA-Ar Total Score: 14 S Progress Note (SOAP) Subjective: agitation anxiety sweats shakes headache Objective: 08/12/16 11:22 Vital Signs Temperature 97.9 F 08/12/16 11:01 Pulse Rate 85 08/12/16 11:01 Respiratory Rate 18 08/12/16 11:01 Blood Pressure 124/78 08/12/16 11:01 O2 Sat by Pulse Oximetry (%) Laboratory Tests 08/12/16 08/12/16 07:00 07:00 WBC 10.8 H D RBC 4.62 Hgb 14.4 Hct 42.0 MCV 90.8 MCHC 34.4 RDW 13.2 Plt Count 219 MPV 8.3 Sodium 141 Potassium 3.7 Chloride 105 Carbon Dioxide 27 Anion Gap 9 BUN 9 D Creatinine 0.8 Creat Clearance w eGFR > 60 Random Glucose 84 Calcium 8.7 Total Bilirubin 0.4 AST 21 D ALT 24 Alkaline Phosphatase 91 Total Protein 6.9 Albumin 3.8 rest labs pending awake/alert ambulating no acute distress Assessment: 08/12/16 11:23 withdrawal sx Plan: continue detox increase fluids labs pending
--- NOTE | 2016-08-12 11:33 | CONSULT ---
[facility] Psychiatric Consult - Data Date of interview: 08/12/16 Admission source: [facility] Identifying data: Another admission to [facility] for this 31 y/o male seeking detoxification treatment on for alcohol,cocaine and marijuana dependence.Patient is single without children,domiciled,unemployed and dependent on relatives for financial support. Substance Abuse History: - Smoking Cessation. Smoking history: Current every day smoker. Have you smoked in the past 12 months: Yes. Aproximately how many cigarettes per day: 20. Cigars Per Day: 0. Hx Chewing Tobacco Use: No. Initiated information on smoking cessation: Yes. 'Breaking Loose' booklet given : 08/11/16. - Substance & Tx. History. Hx Alcohol Use: Yes. Hx Substance Use : Yes. Substance Use Type: Alcohol, Cocaine, Marijuana. Hx Substance Use Treatment: Yes (DETOX HERE (06/26/16); REHAB AT [facility] 01/2016). - Substances Abused. Alcohol. Route: Oral. Frequency: Daily. Amount used: beer 6-7 of 40 oz. Age of first use: 13. Date of Last Use: 08/11/16. Cocaine. Route: Inhalation. Frequency: 1-3 times last 30 days. Amount used: $ 100. Age of first use: 15. Date of Last Use: 08/09/16. Marijuana/Hashish. Route: Smoking. Frequency: Daily. Amount used: 5-6 grams. Age of first use : 14. Date of Last Use: 08/11/16. Confirmed by patient. Medical History: Seizure disorder (on levetiracetam) and bronchial asthma.Distant history of right shoulder dislocation (seizure-related fall) and fracture of left leg (age [age]) and right hand (boxer fracture). Psychiatric History: No reported history of psychiatric hospitalizations.Diagnosed with MDD.Mr Maldonado was discharged from [facility] in May 2016.He reported to this race and sports book writer that he relapsed rapidly into substance abuse and stopped taking his prescribed medications.No motivation for sobriety and OPD care.He now wants to get back on seroquel (insomnia) but not lexapro.No history of suicide attempts. Physical/Sexual Abuse/Trauma History: Patient denies history of abuse. Additional Comment: Urine Drug Screen Results: THC-Marijuana, EVETTE-Cocaine.Noted. Mental Status Exam - Mental Status Exam Alert and Oriented to: Time, Place, Person Cognitive Function: Good Patient Appearance: Well Groomed Mood: Hopeful, Euthymic Affect: Appropriate, Normal Range Patient Behavior: Appropriate, Cooperative Speech Pattern: Clear Psychiatric Findings - Problem List ([place] 1, 2,3) (1) Alcohol dependence with uncomplicated withdrawal Current Visit: Yes Status: Acute (2) Cocaine dependence Current Visit: Yes Status: Acute Qualifiers: Substance use status: uncomplicated Qualified Code(s): F14.20 - Cocaine dependence, uncomplicated (3) Marijuana dependence Current Visit: Yes Status: Acute (4) Substance induced mood disorder Current Visit: Yes Status: Acute (5) Nicotine dependence Current Visit: Yes Status: Acute Qualifiers: Nicotine product type: cigarettes Substance use status: in withdrawal Qualified Code(s): F17.213 - Nicotine dependence, cigarettes, with withdrawal (6) Asthma Current Visit: Yes Status: Chronic Qualifiers: Asthma severity: mild intermittent Asthma complication type: with status asthmaticus Qualified Code(s): J45.22 - Mild intermittent asthma with status asthmaticus (7) History of seizure Current Visit: Yes Status: Chronic (8) GERD (gastroesophageal reflux disease) Current Visit: Yes Status: Chronic Qualifiers: Esophagitis presence: without esophagitis Qualified Code(s): K21.9 - Gastro-esophageal reflux disease without esophagitis (9) Insomnia Current Visit: Yes Status: Acute - Initial Treatment Plan Initial Treatment Plan: Psychoeducation.Detoxification.Medication : seroquel 100 mg po hs.Side effects/benefits discussed with the patient.He agrees with this careplan.Observation.
[2016-08-12] MEDS: chlordiazePOXIDE HCL 25 MG CAPSULE PO PRN ×2 (12:43→20:38)
[2016-08-12] MEDS: THIAMINE HCL 100 MG TABLET (FP) PO SCH (22:04)
[2016-08-12] MEDS: QUEtiapine FUMARATE 100 MG TABLET (FP) PO SCH (22:04)
[2016-08-13 00:09] LABS: URINE APPEARANCE CLOUDY; URINE BILIRUBIN NEGATIVE (NEGATIVE); URINE BLOOD NEGATIVE (NEGATIVE); URINE COLOR YELLOW; URINE GLUCOSE (UA) NEGATIVE (NEGATIVE); URINE KETONE NEGATIVE (NEGATIVE); URINE LEUK ESTERASE NEGATIVE (NEGATIVE); URINE NITRITE NEGATIVE (NEGATIVE); URINE PROTEIN NEGATIVE (NEGATIVE); URINE UROBILINOGEN NEGATIVE E.U./dl (0.2-1.0)
[2016-08-13] MEDS: chlordiazePOXIDE HCL 25 MG CAPSULE PO SCH ×3 (05:46→17:36)
--- NOTE | 2016-08-13 10:03 | EKG ---
Test Reason : Blood Pressure : / mmHG Vent. Rate : 081 BPM Atrial Rate : 081 BPM P-R Int : 150 ms QRS Dur : 082 ms QT Int : 364 ms P-R-T Axes : 039 053 055 degrees QTc Int : 422 ms NORMAL SINUS RHYTHM NORMAL ECG Confirmed by WILLIAN RAUSCH MD ([id number]) on 08/13/2016 10:02:53 AM Referred By: Confirmed By:WILLIAN RAUSCH MD
[2016-08-13] MEDS: PRENATAL VITAMINS W/ FOLIC ACID TABLET (FP) PO SCH (10:22)
[2016-08-13] MEDS ORDERED: BACITRACIN 0.9 GM PACKET ONE (10:23)
[2016-08-13] MEDS: NICOTINE 21 MG/24 HOURS TOPICAL PATCH TD SCH (10:24)
[2016-08-13] MEDS: BACITRACIN 30 GM TUBE TOPICAL OINTMENT TP SCH ×2 (10:24→22:22)
[2016-08-13] MEDS: SULFAMETHOXAZOLE/TRIMETHOPRIM 800MG/160MG D.S. TABLET PO SCH ×2 (10:58→22:22)
[2016-08-13] MEDS: MAG HYDROX/AL HYDROX/SIMETH 30 ML UNIT-DOSE CUP PO PRN (12:36)
[2016-08-13] MEDS: chlordiazePOXIDE HCL 25 MG CAPSULE PO PRN ×2 (12:36→19:50)
--- NOTE | 2016-08-13 13:04 | PN ---
[facility] CIWA - CIWA Score Nausea/Vomitin Muscle Tremors: 3 Anxiety: 4-Mod. Anxious/Guarded Agitation: 4-Moderately Restless Paroxysmal Sweats: 3 Orientation: 0-Oriented Tacttile Disturbances: 0-None Auditory Disturbances: 0-None Visual Disturbances: 0-None Headache: 0-None Present CIWA-Ar Total Score: 16 BHS Progress Note (SOAP) Subjective: Anxiety,tremors,sweating,interrupted sleep,restless. Objective: 08/13/16 13:03 Vital Signs - 8 hr 08/13/16 08/13/16 06:24 10:00 Temperature 97.5 F L 96.7 F L Pulse Rate 63 67 Respiratory 16 18 Rate Blood Pressure 124/83 131/94 Laboratory Last Values WBC 10.8 K/mm3 (4.0-10.0) H D 08/12/16 07:00 RBC 4.62 M/mm3 (4.00-5.60) 08/12/16 07:00 Hgb 14.4 GM/dL (11.7-16.9) 08/12/16 07:00 Hct 42.0 % (35.4-49) 08/12/16 07:00 MCV 90.8 fl (80-96) 08/12/16 07:00 MCHC 34.4 g/dl (32.0-35.9) 08/12/16 07:00 RDW 13.2 % (11.9-15.9) 08/12/16 07:00 Plt Count 219 K/MM3 (134-434) 08/12/16 07:00 MPV 8.3 fl (7.5-11.1) 08/12/16 07:00 Sodium 141 mmol/L (136-145) 08/12/16 07:00 Potassium 3.7 mmol/L (3.5-5.1) 08/12/16 07:00 Chloride 105 mmol/L (98-107) 08/12/16 07:00 Carbon Dioxide 27 mmol/L (21-32) 08/12/16 07:00 Anion Gap 9 (8-16) 08/12/16 07:00 BUN 9 mg/dL (7-18) D 08/12/16 07:00 Creatinine 0.8 mg/dL (0.7-1.3) 08/12/16 07:00 Creat Clearance w eGFR > 60 (>60) 08/12/16 07:00 Random Glucose 84 mg/dL (74-106) 08/12/16 07:00 Calcium 8.7 mg/dL (8.5-10.1) 08/12/16 07:00 Total Bilirubin 0.4 mg/dL (0.2-1.0) 08/12/16 07:00 AST 21 U/L (15-37) D 08/12/16 07:00 ALT 24 U/L (12-78) 08/12/16 07:00 Alkaline Phosphatase 91 U/L (45-117) 08/12/16 07:00 Total Protein 6.9 g/dl (6.4-8.2) 08/12/16 07:00 Albumin 3.8 g/dl (3.4-5.0) 08/12/16 07:00 Urine Color Yellow 08/12/16 15:28 Urine Appearance Cloudy 08/12/16 15:28 Urine pH 7.0 (5.0-8.0) 08/12/16 15:28 Ur Specific [place] 1.020 (1.005-1.025) 08/12/16 15:28 Urine Protein Negative (NEGATIVE) 08/12/16 15:28 Urine Glucose (UA) Negative (NEGATIVE) 08/12/16 15:28 Urine Ketones Negative (NEGATIVE) 08/12/16 15:28 Urine Blood Negative (NEGATIVE) 08/12/16 15:28 Urine Nitrite Negative (NEGATIVE) 08/12/16 15:28 Urine Bilirubin Negative (NEGATIVE) 08/12/16 15:28 Urine Urobilinogen Negative E.U./dl (0.2-1.0) 08/12/16 15:28 Ur Leukocyte Esterase Negative (NEGATIVE) 08/12/16 15:28 RPR Titer Nonreactive (NONREACTIVE) 08/12/16 07:00 labs noted Assessment: 08/13/16 13:04 Withdrawal sx. Plan: Continue detox
--- NOTE | 2016-08-13 19:54 | PN ---
RAJINDER Progress Note Note: Psychiatry Attending's note : Approached by patient. Issue : wants to resume gabapentin. Effective in reduction of his anxiety. Dose confirmed by pharmacy claims of 07/31/16. Intervention : gabapentin 300 mg po tid. Side effects/benefits discussed with patient. Agrees with this plan of care.
[2016-08-13] MEDS: chlordiazePOXIDE 5 MG CAPSULE PO SCH (22:22)
[2016-08-13] MEDS: cloNIDine HCL 0.1 MG TABLET PO PRN (22:22)
[2016-08-13] MEDS: GABAPENTIN 300 MG CAPSULE (FP) PO SCH (22:22)
[2016-08-13] MEDS: QUEtiapine FUMARATE 100 MG TABLET (FP) PO SCH (22:22)
[2016-08-13] MEDS: THIAMINE HCL 100 MG TABLET (FP) PO SCH (22:23)
[2016-08-13] MEDS: diphenhydrAMINE HCL 50 MG CAPSULE PO PRN (22:24)
[2016-08-14] MEDS: diphenhydrAMINE HCL 50 MG CAPSULE PO PRN ×2 (01:57→22:20)
[2016-08-14] MEDS: chlordiazePOXIDE HCL 25 MG CAPSULE PO PRN ×4 (01:57→19:08)
[2016-08-14] MEDS: GABAPENTIN 300 MG CAPSULE (FP) PO SCH ×3 (06:05→22:19)
[2016-08-14] MEDS: chlordiazePOXIDE 5 MG CAPSULE PO SCH ×3 (06:05→17:19)
[2016-08-14] MEDS: PRENATAL VITAMINS W/ FOLIC ACID TABLET (FP) PO SCH (10:12)
[2016-08-14] MEDS: BACITRACIN 30 GM TUBE TOPICAL OINTMENT TP SCH ×2 (10:12→22:19)
[2016-08-14] MEDS: NICOTINE 21 MG/24 HOURS TOPICAL PATCH TD SCH (10:12)
[2016-08-14] MEDS: SULFAMETHOXAZOLE/TRIMETHOPRIM 800MG/160MG D.S. TABLET PO SCH ×2 (10:13→22:19)
[2016-08-14] MEDS: MAG HYDROX/AL HYDROX/SIMETH 30 ML UNIT-DOSE CUP PO PRN (11:56)
--- NOTE | 2016-08-14 13:41 | PN ---
[facility] Progress Note (SOAP) Subjective: Sweating,interrupted sleep,restless,dyspepsia Objective: 08/14/16 13:38 Vital Signs - 8 hr 08/14/16 08/14/16 06:46 10:00 Temperature 97.7 F 97.7 F Pulse Rate 63 66 Respiratory 18 18 Rate Blood Pressure 99/63 130/80 Laboratory Last Values WBC 10.8 K/mm3 (4.0-10.0) H D 08/12/16 07:00 RBC 4.62 M/mm3 (4.00-5.60) 08/12/16 07:00 Hgb 14.4 GM/dL (11.7-16.9) 08/12/16 07:00 Hct 42.0 % (35.4-49) 08/12/16 07:00 MCV 90.8 fl (80-96) 08/12/16 07:00 MCHC 34.4 g/dl (32.0-35.9) 08/12/16 07:00 RDW 13.2 % (11.9-15.9) 08/12/16 07:00 Plt Count 219 K/MM3 (134-434) 08/12/16 07:00 MPV 8.3 fl (7.5-11.1) 08/12/16 07:00 Sodium 141 mmol/L (136-145) 08/12/16 07:00 Potassium 3.7 mmol/L (3.5-5.1) 08/12/16 07:00 Chloride 105 mmol/L (98-107) 08/12/16 07:00 Carbon Dioxide 27 mmol/L (21-32) 08/12/16 07:00 Anion Gap 9 (8-16) 08/12/16 07:00 BUN 9 mg/dL (7-18) D 08/12/16 07:00 Creatinine 0.8 mg/dL (0.7-1.3) 08/12/16 07:00 Creat Clearance w eGFR > 60 (>60) 08/12/16 07:00 Random Glucose 84 mg/dL (74-106) 08/12/16 07:00 Calcium 8.7 mg/dL (8.5-10.1) 08/12/16 07:00 Total Bilirubin 0.4 mg/dL (0.2-1.0) 08/12/16 07:00 AST 21 U/L (15-37) D 08/12/16 07:00 ALT 24 U/L (12-78) 08/12/16 07:00 Alkaline Phosphatase 91 U/L (45-117) 08/12/16 07:00 Total Protein 6.9 g/dl (6.4-8.2) 08/12/16 07:00 Albumin 3.8 g/dl (3.4-5.0) 08/12/16 07:00 Urine Color Yellow 08/12/16 15:28 Urine Appearance Cloudy 08/12/16 15:28 Urine pH 7.0 (5.0-8.0) 08/12/16 15:28 Ur Specific [place] 1.020 (1.005-1.025) 08/12/16 15:28 Urine Protein Negative (NEGATIVE) 08/12/16 15:28 Urine Glucose (UA) Negative (NEGATIVE) 08/12/16 15:28 Urine Ketones Negative (NEGATIVE) 08/12/16 15:28 Urine Blood Negative (NEGATIVE) 08/12/16 15:28 Urine Nitrite Negative (NEGATIVE) 08/12/16 15:28 Urine Bilirubin Negative (NEGATIVE) 08/12/16 15:28 Urine Urobilinogen Negative E.U./dl (0.2-1.0) 08/12/16 15:28 Ur Leukocyte Esterase Negative (NEGATIVE) 08/12/16 15:28 RPR Titer Nonreactive (NONREACTIVE) 08/12/16 07:00 labs noted Assessment: 08/14/16 13:40 Withdrawal sx. Plan: Continue detox
[2016-08-14] MEDS ORDERED: PANTOPRAZOLE 40 MG TABLET (FP) PO SCH (14:15)
[2016-08-14 21:42] VITALS: BP 140/89; PULSE 90; TEMP 98.2
[2016-08-14] MEDS: QUEtiapine FUMARATE 100 MG TABLET (FP) PO SCH (22:19)
[2016-08-14] MEDS: cloNIDine HCL 0.1 MG TABLET PO PRN (22:19)
[2016-08-14] MEDS: chlordiazePOXIDE HCL 10 MG CAPSULE PO SCH (22:19)
[2016-08-14] MEDS: THIAMINE HCL 100 MG TABLET (FP) PO SCH (22:20)
[2016-08-15] MEDS: diphenhydrAMINE HCL 50 MG CAPSULE PO PRN (02:00)
[2016-08-15] MEDS: chlordiazePOXIDE HCL 10 MG CAPSULE PO SCH (06:15)
[2016-08-15] MEDS: GABAPENTIN 300 MG CAPSULE (FP) PO SCH (06:15)
[2016-08-15] MEDS: MAG HYDROX/AL HYDROX/SIMETH 30 ML UNIT-DOSE CUP PO PRN (06:44)
--- NOTE | 2016-08-15 08:09 | PN ---
S Progress Note (SOAP) Subjective: ALERT,NO COMPLAINT Objective: 08/15/16 08:08 Vital Signs Temperature 98.2 F 08/14/16 21:42 Pulse Rate 90 08/14/16 21:42 Respiratory Rate 18 08/15/16 03:30 Blood Pressure 140/89 08/14/16 21:42 O2 Sat by Pulse Oximetry (%) Assessment: 08/15/16 08:08 DETOX COMPLETED,NO WITHDRAWAL SYMPTOM Plan: DISCHARGE TODAY,FOLLOW UP WITH AFTER CARE PROGRAM ARRANGEMENT
--- NOTE | 2016-08-15 08:14 | DS ---
[facility] Detox Discharge Summary Admission Date: 08/11/16 Discharge Date: 08/15/16 - History Present History: Alcohol Dependence, Cannabis Dependence, Cocaine Dependence Additional Comments: FOLLOW UP WITH AFTER CARE PROGRAM ARRANGEMENT Pertinent Past History: ASTHMA SEIZURE HISTORY - Physical Exam Results Vital Signs: Vital Signs Temperature 98.2 F 08/14/16 21:42 Pulse Rate 90 08/14/16 21:42 Respiratory Rate 18 08/15/16 03:30 Blood Pressure 140/89 08/14/16 21:42 O2 Sat by Pulse Oximetry (%) Pertinent Admission Physical Exam Findings: WITHDRAWAL SYMPTOM - Treatment Hospital Course: Detox Protocol Followed, Detoxed Safely, Responded well, Discharged Condition Good, Rehab Referral Accepted Patient has Accepted a Rehab Referral to: [facility] - Medication Discharge Medications: Ambulatory Orders Gabapentin [Neurontin -] 300 mg PO TID capsule 03/01/16 Quetiapine Fumarate [Seroquel] 100 mg PO HS #30 tablet 05/11/16 Gabapentin 600 mg PO HS 06/14/16 Albuterol Sulfate Inhaler - [Ventolin HFA Inhaler -] 2 puff IH Q4H PRN #1 inhaler 06/26/16 Quetiapine Fumarate [Seroquel] 100 mg PO HS #30 tablet 08/12/16 Gabapentin [Neurontin] 300 mg PO TID #60 capsule 08/13/16 - Diagnosis (1) Alcohol dependence with uncomplicated withdrawal Status: Acute (2) Cocaine dependence Status: Acute Qualifiers: Substance use status: uncomplicated Qualified Code(s): F14.20 - Cocaine dependence, uncomplicated (3) Asthma Status: Chronic Qualifiers: Asthma severity: mild intermittent Asthma complication type: with status asthmaticus Qualified Code(s): J45.22 - Mild intermittent asthma with status asthmaticus (4) Depression Status: Suspected Qualifiers: Depression Type: unspecified Qualified Code(s): F32.9 - Major depressive disorder, single episode, unspecified (5) Seizure due to alcohol withdrawal Status: Suspected Qualifiers: Complication of substance-induced condition: uncomplicated Qualified Code(s): F10.230 - Alcohol dependence with withdrawal, uncomplicated (6) Marijuana dependence Status: Acute
== END 2016-08-15 06:50 | disposition home or self-care (01) | DRG 774 ==
LOC: YASAS 22:10 → Y6N 23:20
PROVIDERS: ADMIT Internal Medicine; ATTEND Internal Medicine
PROC: HZ2ZZZZ Detoxification Services for Substance Abuse Treatment (ICD-10-PCS; principal; 2016-08-11)
DX: F10.230 Alcohol dependence with withdrawal, uncomplicated (principal); F14.20 Cocaine dependence, uncomplicated; F12.20 Cannabis dependence, uncomplicated; F17.210 Nicotine dependence, cigarettes, uncomplicated; F32.9 Major depressive disorder, single episode, unspecified; F19.24 Other psychoactive substance dependence with psychoactive substance-induced mood disorder; R00.0 Tachycardia, unspecified; J45.22 Mild intermittent asthma with status asthmaticus; K21.9 Gastro-esophageal reflux disease without esophagitis; G47.00 Insomnia, unspecified; G40.909 Epilepsy, unspecified, not intractable, without status epilepticus
CPT/HCPCS: 36415; 80053; 81003; 85027; 86593; 93005; 93010

== ENCOUNTER 2016-10-23 22:13 | Inpatient (IN) | payer OTHER ==
--- NOTE | 2016-10-23 22:36 | HP ---
CIWA Score - CIWA Score Nausea/Vomitin Muscle Tremors: 3 Anxiety: 3 Agitation: 3 Paroxysmal Sweats: 2 Orientation: 0-Oriented Tacttile Disturbances: 2-Mild Itch/Numbness/Burn Auditory Disturbances: 2-Mild Harshness/Frighten Visual Disturbances: 2-Mild Sensitivity Headache: 2-Mild CIWA-Ar Total Score: 22 Admission ROS [facility] - HPI Chief Complaint: DEPENDENT ON ETOH AND MARIJUANA AND OCC. COCAINE Allergies/Adverse Reactions: Allergies Allergy/AdvReac Type Severity Reaction Status Date / Time ketamine Allergy Severe disoriented Verified 08/11/16 22:54 and confused acetaminophen [From Tylenol] Allergy Intermediate Nausea Verified 08/11/16 22:54 History of Present Illness: THE PT. IS REQUESTING ADMISSION TO THE DETOX UNIT AND CAME FOR MEDICAL CLEARANCE. Exam Limitations: No Limitations - Ebola screening Have you traveled outside of the country in the last 21 days: No Have you had contact with anyone from an Ebola affected area: No Have you been sick,other than usual withdrawal symptoms: No Do you have a fever: No - Review of Systems Constitutional: See HPI, Malaise, Weakness EENT: reports: See HPI Respiratory: reports: See HPI, Wheezing Cardiac: reports: See HPI, Syncope GI: reports: See HPI, Nausea, Abdominal cramping : reports: No Symptoms Reported, See HPI Musculoskeletal: reports: See HPI, Joint Pain, Muscle Pain, Muscle Weakness Integumentary: reports: See HPI, Flushing, Sweating Neuro: reports: See HPI, Headache, Tremors, Weakness Endocrine: reports: See HPI Hematology: reports: See HPI Psychiatric: reports: Judgement Intact, Orientated x3, Anxious, Depressed Patient History - Patient Medical History Hx Anemia: No Hx Asthma: Yes Hx Chronic Obstructive Pulmonary Disease (COPD): No Hx Cancer: No Hx Cardiac Disorders: No Hx Congestive Heart Failure: No Hx Hypertension: Yes (ON AND OFF) Hx Hypercholesterolemia: No Hx Pacemaker: No HX Cerebrovascular Accident: No Hx Seizures: Yes (07/2014 Etoh related seizure) Hx Dementia: No Hx Diabetes: No Hx Gastrointestinal Disorders: No Hx Liver Disease: No Hx Genitourinary Disorders: No Hx Sexually Transmitted Disorders: No Hx Renal Disease (ESRD): No Hx Thyroid Disease: No Hx Human Immunodeficiency Virus (HIV): No Hx Hepatitis C: No Hx Depression: Yes (AND ANXIETY) Hx Suicide Attempt: No Hx Bipolar Disorder: No Hx Schizophrenia: No Other Medical History: INSOMNIA - Patient Surgical History Past Surgical History: Yes Hx Neurologic Surgery: No Hx Cataract Extraction: No Hx Cardiac Surgery: No Hx Lung Surgery: No Hx Breast Surgery: No Hx Breast Biopsy: No Hx Abdominal Surgery: No Hx Appendectomy: No Hx Cholecystectomy: No Hx Genitourinary Surgery: No Hx Section: No Hx Orthopedic Surgery: Yes (RIGHT SHOULDER(DISLOCATED) 06/2015) Anesthesia Reaction: No - PPD History Date: 01/04/16 Results: 0 mm - Smoking Cessation Smoking history: Current every day smoker Have you smoked in the past 12 months: Yes Aproximately how many cigarettes per day: 30 Cigars Per Day: 0 Hx Chewing Tobacco Use: No Initiated information on smoking cessation: Yes 'Breaking Loose' booklet given: 10/23/16 - Substance & Tx. History Hx Alcohol Use: Yes Hx Substance Use: Yes Substance Use Type: Alcohol, Cocaine, Marijuana Hx Substance Use Treatment: Yes - Substances Abused Alcohol Route: Oral Frequency: Daily Amount used: BEER 20 CANS/D Age of first use: 12 Date of Last Use: 10/23/16 Marijuana/Hashish Route: Smoking Frequency: Daily Amount used: 3 GRAMS/D Age of first use: 11 Date of Last Use: 10/23/16 Cocaine Route: Inhalation Frequency: No use in 30 days Amount used: 1 GRAM - LAST NIGHT Age of first use: 16 Date of Last Use: 10/22/16 Family Disease History - Family Disease History Family Disease History: Diabetes: Grandparent (grandmother alcohol, ), Heart Disease: Grandparent, Other: Grandparent, Mother (alcohol, hepatitis), Brother ( alcohol,seizure,) Admission Physical Exam [facility] - Physical General Appearance: Yes: No Apparent Distress, Nourished, Appropriately Dressed , Alcohol on Breath, Tremorous, Sweating, Anxious HEENTM: Yes: Hearing grossly Normal, Normocephalic, Normal Voice, DAE, Pharynx Normal Respiratory: Yes: Chest Non-Tender, Lungs Clear, Normal Breath Sounds, No Respiratory Distress, No Accessory Muscle Use Neck: Yes: No masses,lesions,Nodules, Supple, Trachea in good position Breast: Yes: Breast Exam Deferred, Axillae without masses Cardiology: Yes: Regular Rhythm, S1, S2, Tachycardia Abdominal: Yes: Normal Bowel Sounds, Non Tender, Flat, Soft Back: Yes: Normal Inspection Musculoskeletal: Yes: full range of Motion, Gait Steady, Pelvis Stable, Muscle Pain, Muscle weakness Extremities: Yes: Normal Capillary Refill, Normal Range of Motion, Non-Tender, Tremors Neurological: Yes: 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 NML intact, Fully Oriented, Alert, Normal Mood/ Affect, Normal Response, Depressed Affect Integumentary: Yes: Warm Lymphatic: Yes: Within Normal Limits - Diagnostic (1) Alcohol dependence with uncomplicated withdrawal Current Visit: Yes Status: Chronic (2) Insomnia Current Visit: Yes Status: Chronic Qualifiers: Insomnia type: unspecified Qualified Code(s): G47.00 - Insomnia, unspecified (3) Marijuana dependence Current Visit: Yes Status: Chronic (4) Nicotine dependence Current Visit: Yes Status: Chronic Qualifiers: Nicotine product type: cigarettes Substance use status: in withdrawal Qualified Code(s): F17.213 - Nicotine dependence, cigarettes, with withdrawal (5) Asthma Current Visit: Yes Status: Chronic Qualifiers: Asthma severity: mild intermittent Asthma complication type: uncomplicated Qualified Code(s): J45.20 - Mild intermittent asthma, uncomplicated (6) Seizure due to alcohol withdrawal Current Visit: No Status: Inactive Qualifiers: Complication of substance-induced condition: uncomplicated Qualified Code(s): F10.230 - Alcohol dependence with withdrawal, uncomplicated Comment: neurontin 300 mg tid (7) Anxiety and depression Current Visit: Yes Status: Chronic Cleared for Admission [facility] - Detox or Rehab [facility] Level of Care: Medically Managed Detox Regimen/Protocol: Librium [facility] Breath Alcohol Content Breath Alcohol Content: 0.196 Vital Signs - Vital Signs Vital Signs Refused: No Temperature: 97.5 F Temperature Source: Oral Pulse Rate: 104 Respiratory Rate: 16 Blood Pressure: 143/87 BP Location: Left Arm Blood Pressure Position: Sitting - Height Height: 5 ft 11 in - Weight Weight: 198 lb Weight Measurement Method: Estimated by Patient Body Mass Index (BMI): 27.6 Urine Drug Screen - Test Device Lot Number: [id number] Expiration Date: 07/27/18 - Control Is Test Valid: Yes - Results Drug Screen Negative: No Urine Drug Screen Results: THC-Marijuana, EVETTE-Cocaine, TCA-Tricyclic Antidepress
[2016-10-23 22:45] VITALS: BMI 27.6
[2016-10-23] MEDS ORDERED: LOPERAMIDE HCL 2 MG CAPSULE PO PRN (22:46)
[2016-10-23] MEDS ORDERED: MAGNESIUM CITRATE 300 ML BOTTLE PO PRN (22:46)
[2016-10-23] MEDS ORDERED: hydrOXYzine PAMOATE 25 MG CAPSULE (FP) PO PRN (22:46)
[2016-10-23] MEDS ORDERED: P-EPHED 60MG/TRIPROLIDI 2.5MG TABLET PO PRN (22:46)
[2016-10-23] MEDS ORDERED: ACETAMINOPHEN 325 MG TABLET (FP) PO PRN (22:46)
[2016-10-23] MEDS ORDERED: IBUPROFEN 400 MG TABLET (FP) PO PRN (22:46)
[2016-10-23] MEDS ORDERED: chlordiazePOXIDE HCL 25 MG CAPSULE PO ONE (22:46)
[2016-10-23] MEDS ORDERED: guaiFENesin/D-METHORPHAN HB 10 ML UNIT-DOSE CUPS PO PRN (22:46)
[2016-10-23] MEDS ORDERED: MAGNESIUM HYDROX 2400MG/30ML ORAL SUSPENSION 30 ML CUP PO PRN (22:46)
[2016-10-23] MEDS ORDERED: NICOTINE POLACRILEX 4 MG GUM BC PRN (22:46)
[2016-10-23] MEDS ORDERED: diphenhydrAMINE HCL 50 MG CAPSULE PO PRN (22:46)
[2016-10-23] MEDS ORDERED: MENTHOL/PHENOL 1 EACH UD MM PRN (22:46)
[2016-10-23] MEDS ORDERED: QUEtiapine FUMARATE 100 MG TABLET (FP) PO ONE (22:49)
[2016-10-23] MEDS ORDERED: ALBUTEROL SO4 6.7 GM HFA INHALER IH PRN (22:50)
[2016-10-23] MEDS ORDERED: cloNIDine HCL 0.1 MG TABLET PO ONE (23:36)
[2016-10-23] MEDS: GABAPENTIN 300 MG CAPSULE (FP) PO SCH (23:42)
[2016-10-23] MEDS: chlordiazePOXIDE HCL 25 MG CAPSULE PO SCH (23:43)
[2016-10-24] MEDS: chlordiazePOXIDE HCL 25 MG CAPSULE PO SCH ×4 (05:18→22:23)
[2016-10-24] MEDS: GABAPENTIN 300 MG CAPSULE (FP) PO SCH ×3 (05:18→22:23)
[2016-10-24 10:04] LABS: MCH 30.7 pg (25.7-33.7); MCHC 33.2 g/dl (32.0-35.9); MEAN CELL VOLUME 92.5 fl (80-96); MEAN PLT VOLUME 8.5 fl (7.5-11.1); PLATELET COUNT 286 K/MM3 (134-434); RDW 13.3 % (11.9-15.9); WHITE BLOOD COUNT 8.1 K/mm3 (4.0-10.0)
[2016-10-24 10:21] LABS: ANION GAP 11 (8-16); CALCIUM 9.3 mg/dL (8.5-10.1); CO2 27 mmol/L (21-32); GLUCOSE,RANDOM 87 mg/dL (74-106)
[2016-10-24 10:25] LABS: ALK PHOS 84 U/L (45-117); BILIRUBIN,TOTAL 0.5 mg/dL (0.2-1.0); SGOT/AST 17 U/L (15-37); SGPT/ALT 23 U/L (12-78); TOT PROT 7.2 g/dl (6.4-8.2)
--- NOTE | 2016-10-24 10:25 | CONSULT ---
[facility] Psychiatric Consult - Data Date of interview: 10/24/16 Admission source: [facility] Identifying data: Onse of multiple admissions to [facility] for this 31 y/o male seeking detoxification treatment on for alcohol,cocaine and marijuana dependence.Patient is single without children,domiciled, unemployed and dependent on relatives for financial support. Substance Abuse History: Mr Maldonado confirms this report in this interview. Smoking Cessation. Smoking history: Current every day smoker. Have you smoked in the past 12 months: Yes. Aproximately how many cigarettes per day: 30. Cigars Per Day: 0. Hx Chewing Tobacco Use: No. Initiated information on smoking cessation: Yes. 'Breaking Loose' booklet given: 10/23/16. - Substance & Tx. History. Hx Alcohol Use: Yes. Hx Substance Use: Yes. Substance Use Type : Alcohol, Cocaine, Marijuana. Hx Substance Use Treatment: Yes. - Substances Abused. Alcohol. Route: Oral. Frequency: Daily. Amount used: BEER 20 CANS /D. Age of first use: 12. Date of Last Use: 10/23/16. Marijuana/Hashish. Route: Smoking. Frequency: Daily. Amount used: 3 GRAMS/D. Age of first use: 11. Date of Last Use: 10/23/16. Cocaine. Route: Inhalation. Frequency: No use in 30 days. Amount used: 1 GRAM - LAST NIGHT. Age of first use: 16. Date of Last Use: 10/22/16 Medical History: Hypertension,seizure disorder (on levetiracetam) and bronchial asthma.Distant history of right shoulder dislocation (seizure-related fall) and fracture of left leg (age [age]) and right hand (boxer fracture). Psychiatric History: No reported history of psychiatric hospitalizations.Mr Maldonado admits to chronic non-adherence to [facility]PD care.Declines antidepressant medication.Wants seroquel (insomnia).No history of suicide attempts. Physical/Sexual Abuse/Trauma History: Patient denies. Additional Comment: Urine Drug Screen Results: THC-Marijuana, EVETTE-Cocaine, TCA- Tricyclic Antidepressant.Noted. Mental Status Exam - Mental Status Exam Alert and Oriented to: Time, Place, Person Cognitive Function: Good Patient Appearance: Well Groomed Mood: Hopeful, Euthymic Affect: Appropriate, Normal Range Patient Behavior: Appropriate, Cooperative Speech Pattern: Clear Voice Loudness: Normal Thought Process: Intact, Goal Oriented Thought Disorder: Not Present Hallucinations: Denies Suicidal Ideation: Denies Homicidal Ideation: Denies Insight/Judgement: Poor Sleep: Poorly, Difficulty falling asleep Appetite: Good Muscle strength/Tone: Normal Gait/Station: Normal Psychiatric Findings - Problem List ([place] 1, 2,3) (1) Alcohol dependence with uncomplicated withdrawal Current Visit: Yes Status: Acute (2) Marijuana dependence Current Visit: Yes Status: Acute (3) Nicotine dependence Current Visit: Yes Status: Acute Qualifiers: Nicotine product type: cigarettes Substance use status: in withdrawal Qualified Code(s): F17.213 - Nicotine dependence, cigarettes, with withdrawal (4) Cocaine dependence Current Visit: Yes Status: Acute Qualifiers: Substance use status: uncomplicated Qualified Code(s): F14.20 - Cocaine dependence, uncomplicated (5) Substance induced mood disorder Current Visit: Yes Status: Acute (6) GERD (gastroesophageal reflux disease) Current Visit: Yes Status: Chronic Qualifiers: Esophagitis presence: without esophagitis Qualified Code(s): K21.9 - Gastro-esophageal reflux disease without esophagitis (7) History of head injury Current Visit: Yes Status: Chronic (8) History of seizure Current Visit: Yes Status: Chronic (9) Asthma Current Visit: Yes Status: Chronic Qualifiers: Asthma severity: mild intermittent Asthma complication type: uncomplicated Qualified Code(s): J45.20 - Mild intermittent asthma, uncomplicated (10) Insomnia Current Visit: Yes Status: Chronic Qualifiers: Insomnia type: unspecified Qualified Code(s): G47.00 - Insomnia, unspecified - Initial Treatment Plan Initial Treatment Plan: Psychoeducation.Detoxification.Seroquel 100 mg po hs.Side effects/benefits discussed with the patient.He agrees with this careplan.Observation.
[2016-10-24] MEDS: NICOTINE 21 MG/24 HOURS TOPICAL PATCH TD SCH (10:27)
[2016-10-24] MEDS: PRENATAL VITAMINS W/ FOLIC ACID TABLET (FP) PO SCH (10:27)
[2016-10-24] MEDS: CYCLOBENZAPRINE HCL 10 MG TABLET (FP) PO PRN (10:47)
[2016-10-24] MEDS: MAG HYDROX/AL HYDROX/SIMETH 30 ML UNIT-DOSE CUP PO PRN (10:48)
--- NOTE | 2016-10-24 12:48 | PN ---
S CIWA - CIWA Score Nausea/Vomitin Muscle Tremors: 2 Anxiety: 4-Mod. Anxious/Guarded Agitation: 2 Paroxysmal Sweats: 3 Orientation: 0-Oriented Tacttile Disturbances: 2-Mild Itch/Numbness/Burn Auditory Disturbances: 0-None Visual Disturbances: 0-None Headache: 4-Moderately Severe CIWA-Ar Total Score: 20 S Progress Note (SOAP) Subjective: Interrupted sleep, Body Aches, H/A, Sweating, Diarrhea, Stomach Cramping. Objective: PT. A & O X 3. NO ACUTE DISTRESS. 10/24/16 12:46 Vital Signs Temperature 97.0 F L 10/24/16 09:10 Pulse Rate 90 10/24/16 09:10 Respiratory Rate 20 10/24/16 09:10 Blood Pressure 134/89 10/24/16 09:10 O2 Sat by Pulse Oximetry (%) Laboratory Tests 10/24/16 10/24/16 10/24/16 06:30 06:30 06:30 WBC 8.1 RBC 5.05 Hgb 15.5 Hct 46.7 MCV 92.5 MCH 30.7 MCHC 33.2 RDW 13.3 Plt Count 286 D MPV 8.5 Sodium 142 Potassium 4.3 Chloride 104 Carbon Dioxide 27 Anion Gap 11 BUN 7 D Creatinine 1.0 D Creat Clearance w eGFR > 60 Random Glucose 87 Calcium 9.3 Total Bilirubin 0.5 D AST 17 ALT 23 Alkaline Phosphatase 84 Total Protein 7.2 Albumin 4.0 RPR Titer Nonreactive LABS NOTED. ADMISSION UA RESULTS PENDING. 10/24/16 12:48 Assessment: 10/24/16 12:47 WITHDRAWAL SYMPTOMS. Plan: CONTINUE DETOX.
[2016-10-24] MEDS: chlordiazePOXIDE HCL 25 MG CAPSULE PO PRN (13:24)
[2016-10-24 15:37] LABS: URINE APPEARANCE SLCLOUDY; URINE BILIRUBIN NEGATIVE (NEGATIVE); URINE BLOOD NEGATIVE (NEGATIVE); URINE COLOR YELLOW; URINE GLUCOSE (UA) NEGATIVE (NEGATIVE); URINE KETONE NEGATIVE (NEGATIVE); URINE LEUK ESTERASE NEGATIVE (NEGATIVE); URINE NITRITE NEGATIVE (NEGATIVE); URINE PROTEIN NEGATIVE (NEGATIVE); URINE UROBILINOGEN NEGATIVE mg/dL (0.2-1.0)
--- NOTE | 2016-10-24 19:06 | EKG ---
Test Reason : Blood Pressure : / mmHG Vent. Rate : 082 BPM Atrial Rate : 082 BPM P-R Int : 146 ms QRS Dur : 096 ms QT Int : 352 ms P-R-T Axes : 064 046 046 degrees QTc Int : 411 ms NORMAL SINUS RHYTHM NORMAL ECG WHEN COMPARED WITH ECG OF 12-AUG-2016 05:42, NO SIGNIFICANT CHANGE WAS FOUND Confirmed by DEANA ERVIN MD ([id number]) on 10/24/2016 7:06:17 PM Referred By: Confirmed By:DEANA ERVIN MD
[2016-10-24] MEDS ORDERED: QUEtiapine FUMARATE 100 MG TABLET (FP) PO SCH (22:00)
[2016-10-24] MEDS: THIAMINE HCL 100 MG TABLET (FP) PO SCH (22:23)
[2016-10-25] MEDS: GABAPENTIN 300 MG CAPSULE (FP) PO SCH ×3 (05:33→22:29)
[2016-10-25] MEDS: chlordiazePOXIDE HCL 25 MG CAPSULE PO SCH ×3 (05:33→17:23)
[2016-10-25] MEDS: chlordiazePOXIDE HCL 25 MG CAPSULE PO PRN ×2 (07:49→18:20)
[2016-10-25] MEDS: CYCLOBENZAPRINE HCL 10 MG TABLET (FP) PO PRN (07:50)
[2016-10-25] MEDS: PRENATAL VITAMINS W/ FOLIC ACID TABLET (FP) PO SCH (10:34)
[2016-10-25] MEDS: NICOTINE 21 MG/24 HOURS TOPICAL PATCH TD SCH (10:34)
[2016-10-25] MEDS: MAG HYDROX/AL HYDROX/SIMETH 30 ML UNIT-DOSE CUP PO PRN ×2 (10:34→19:42)
--- NOTE | 2016-10-25 10:48 | PN ---
S CIWA - CIWA Score Nausea/Vomitin Muscle Tremors: 2 Anxiety: 3 Agitation: 2 Paroxysmal Sweats: 3 Orientation: 0-Oriented Tacttile Disturbances: 2-Mild Itch/Numbness/Burn Auditory Disturbances: 0-None Visual Disturbances: 2-Mild Sensitivity Headache: 4-Moderately Severe CIWA-Ar Total Score: 20 S Progress Note (SOAP) Subjective: nausea, sweaats, interrutped sleep, anxiety, tremors, severre MALDONADO, numbness Objective: 10/25/16 10:47 Vital Signs - 24 hr 10/24/16 10/24/16 10/24/16 13:13 17:55 22:19 Temperature 96.9 F L 97.8 F 97.4 F L Pulse Rate 85 66 70 Respiratory 18 19 18 Rate Blood Pressure 141/90 107/74 120/88 10/25/16 10/25/16 10/25/16 00:30 03:25 06:33 Temperature 97.3 F L Pulse Rate 64 Respiratory 18 18 16 Rate Blood Pressure 114/69 10/25/16 09:23 Temperature 98 F Pulse Rate 68 Respiratory 20 Rate Blood Pressure 135/88 Laboratory Tests 10/24/16 10/24/16 10/24/16 06:30 06:30 06:30 WBC 8.1 RBC 5.05 Hgb 15.5 Hct 46.7 MCV 92.5 MCH 30.7 MCHC 33.2 RDW 13.3 Plt Count 286 D MPV 8.5 Sodium 142 Potassium 4.3 Chloride 104 Carbon Dioxide 27 Anion Gap 11 BUN 7 D Creatinine 1.0 D Creat Clearance w eGFR > 60 Random Glucose 87 Calcium 9.3 Total Bilirubin 0.5 D AST 17 ALT 23 Alkaline Phosphatase 84 Total Protein 7.2 Albumin 4.0 Urine Color Urine Appearance Urine pH Ur Specific [place] Urine Protein Urine Glucose (UA) Urine Ketones Urine Blood Urine Nitrite Urine Bilirubin Urine Urobilinogen Ur Leukocyte Esterase RPR Titer Nonreactive 10/24/16 12:00 WBC RBC Hgb Hct MCV MCH MCHC RDW Plt Count MPV Sodium Potassium Chloride Carbon Dioxide Anion Gap BUN Creatinine Creat Clearance w eGFR Random Glucose Calcium Total Bilirubin AST ALT Alkaline Phosphatase Total Protein Albumin Urine Color Yellow Urine Appearance Slcloudy Urine pH 5.0 D Ur Specific [place] 1.020 Urine Protein Negative Urine Glucose (UA) Negative Urine Ketones Negative Urine Blood Negative Urine Nitrite Negative Urine Bilirubin Negative Urine Urobilinogen Negative Ur Leukocyte Esterase Negative RPR Titer Assessment: 10/25/16 10:47 withdrawal sx Plan: cont detox, fluids, libirum prn, naproxen for maldonado
[2016-10-25] MEDS: NAPROXEN 500 MG TABLET (FP) PO SCH ×2 (11:45→22:29)
[2016-10-25] MEDS ORDERED: chlordiazePOXIDE HCL 25 MG CAPSULE PO ONE ×2 (13:00)
--- NOTE | 2016-10-25 17:05 | PN ---
[facility] Progress Note Note: Psychiatry Attending's note : Approached by patient. Complaint : seroquel not working at 100 mg. Mr Erica reports Hx of better response with 200 mg. Intervention : Seroquel 200 mg po hs. Ordered. Patient agrees with careplan.
[2016-10-25] MEDS ORDERED: QUEtiapine FUMARATE 200 MG TABLET PO SCH (22:00)
[2016-10-25] MEDS: THIAMINE HCL 100 MG TABLET (FP) PO SCH (22:29)
[2016-10-25] MEDS: chlordiazePOXIDE 5 MG CAPSULE PO SCH (22:31)
[2016-10-26] MEDS: GABAPENTIN 300 MG CAPSULE (FP) PO SCH (05:38)
[2016-10-26] MEDS: chlordiazePOXIDE 5 MG CAPSULE PO SCH ×2 (05:38→11:16)
[2016-10-26 09:58] VITALS: BP 150/96; PULSE 81; TEMP 96.7
[2016-10-26] MEDS: PRENATAL VITAMINS W/ FOLIC ACID TABLET (FP) PO SCH (11:16)
[2016-10-26] MEDS: NAPROXEN 500 MG TABLET (FP) PO SCH (11:16)
[2016-10-26] MEDS: NICOTINE 21 MG/24 HOURS TOPICAL PATCH TD SCH (11:16)
--- NOTE | 2016-10-26 19:11 | DS ---
[facility] Detox Discharge Summary Admission Date: 10/23/16 Discharge Date: 10/26/16 - History Present History: Alcohol Dependence, Cannabis Dependence, Cocaine Dependence Additional Comments: PATIENT HAD PERSONAL /WORK-RELATED ISSUE TO DEAL WITH DID NOT WISH TO STAY TO COMPLETE DETOX REGIMEN. PATIENT ADVISED TO GO IMMEDIATELY TO NEAREST ER SHOULD ANY INTOLERABLE DETOX SYMPTOMS DEVELOP AT ANY TIME. PATIENT LEFT UNIT IN STABLE MEDICAL CONDITION. Pertinent Past History: WITHDRAWAL SYMPTOMS. Laboratory Tests 10/24/16 10/24/16 10/24/16 06:30 06:30 06:30 WBC 8.1 RBC 5.05 Hgb 15.5 Hct 46.7 MCV 92.5 MCH 30.7 MCHC 33.2 RDW 13.3 Plt Count 286 D MPV 8.5 Sodium 142 Potassium 4.3 Chloride 104 Carbon Dioxide 27 Anion Gap 11 BUN 7 D Creatinine 1.0 D Creat Clearance w eGFR > 60 Random Glucose 87 Calcium 9.3 Total Bilirubin 0.5 D AST 17 ALT 23 Alkaline Phosphatase 84 Total Protein 7.2 Albumin 4.0 Urine Color Urine Appearance Urine pH Ur Specific [place] Urine Protein Urine Glucose (UA) Urine Ketones Urine Blood Urine Nitrite Urine Bilirubin Urine Urobilinogen Ur Leukocyte Esterase RPR Titer Nonreactive 10/24/16 12:00 WBC RBC Hgb Hct MCV MCH MCHC RDW Plt Count MPV Sodium Potassium Chloride Carbon Dioxide Anion Gap BUN Creatinine Creat Clearance w eGFR Random Glucose Calcium Total Bilirubin AST ALT Alkaline Phosphatase Total Protein Albumin Urine Color Yellow Urine Appearance Slcloudy Urine pH 5.0 D Ur Specific [place] 1.020 Urine Protein Negative Urine Glucose (UA) Negative Urine Ketones Negative Urine Blood Negative Urine Nitrite Negative Urine Bilirubin Negative Urine Urobilinogen Negative Ur Leukocyte Esterase Negative RPR Titer LABS NOTED. - Physical Exam Results Vital Signs: Vital Signs Temperature 96.7 F L 10/26/16 09:54 Pulse Rate 81 10/26/16 09:54 Respiratory Rate 18 10/26/16 09:54 Blood Pressure 150/96 10/26/16 09:54 O2 Sat by Pulse Oximetry (%) - Medication Discharge Medications: Ambulatory Orders Quetiapine Fumarate [Seroquel] 100 mg PO HS #30 tablet 08/12/16 Quetiapine Fumarate [Seroquel] 100 mg PO HS #30 tablet 10/24/16 Albuterol Sulfate Inhaler - [Ventolin HFA Inhaler -] 2 puff IH Q4H PRN #1 inhaler 10/26/16 Gabapentin [Neurontin] 300 mg PO TID #90 capsule 10/26/16
--- NOTE | 2016-10-26 19:15 | DS ---
[facility] Detox Discharge Summary Admission Date: 10/23/16 Discharge Date: 10/26/16 - History Present History: Alcohol Dependence, Cannabis Dependence, Cocaine Dependence Additional Comments: PATIENT HAD PERSONAL / WORK-RELATED ISSUE TO DEAL WITH AND DID NOT WISH TO STAT TO COMPLETE DETOX REGIMEN. PATIENT ADVISED TO GO IMMEDIATELY TO NEAREST ER SHOULD ANY INTOLERABLE DETOX SYMPTOMS DEVELOP AT ANY TIME. PATIENT LEFT UNIT IN STABLE MEDICAL CONDITION. Pertinent Past History: HTN, Seizures (ETOH-Related), Asthma, Insomnia, History of Right Shoulder Injury , GERD, History of Head Injury. - Physical Exam Results Vital Signs: Vital Signs Temperature 96.7 F L 10/26/16 09:54 Pulse Rate 81 10/26/16 09:54 Respiratory Rate 18 10/26/16 09:54 Blood Pressure 150/96 10/26/16 09:54 O2 Sat by Pulse Oximetry (%) Pertinent Admission Physical Exam Findings: WITHDRAWAL SYMPTOMS. Laboratory Tests 10/24/16 10/24/16 10/24/16 06:30 06:30 06:30 WBC 8.1 RBC 5.05 Hgb 15.5 Hct 46.7 MCV 92.5 MCH 30.7 MCHC 33.2 RDW 13.3 Plt Count 286 D MPV 8.5 Sodium 142 Potassium 4.3 Chloride 104 Carbon Dioxide 27 Anion Gap 11 BUN 7 D Creatinine 1.0 D Creat Clearance w eGFR > 60 Random Glucose 87 Calcium 9.3 Total Bilirubin 0.5 D AST 17 ALT 23 Alkaline Phosphatase 84 Total Protein 7.2 Albumin 4.0 Urine Color Urine Appearance Urine pH Ur Specific [place] Urine Protein Urine Glucose (UA) Urine Ketones Urine Blood Urine Nitrite Urine Bilirubin Urine Urobilinogen Ur Leukocyte Esterase RPR Titer Nonreactive 10/24/16 12:00 WBC RBC Hgb Hct MCV MCH MCHC RDW Plt Count MPV Sodium Potassium Chloride Carbon Dioxide Anion Gap BUN Creatinine Creat Clearance w eGFR Random Glucose Calcium Total Bilirubin AST ALT Alkaline Phosphatase Total Protein Albumin Urine Color Yellow Urine Appearance Slcloudy Urine pH 5.0 D Ur Specific [place] 1.020 Urine Protein Negative Urine Glucose (UA) Negative Urine Ketones Negative Urine Blood Negative Urine Nitrite Negative Urine Bilirubin Negative Urine Urobilinogen Negative Ur Leukocyte Esterase Negative RPR Titer LABS NOTED. - Treatment Hospital Course: Detoxed Safely - Medication Discharge Medications: Ambulatory Orders Quetiapine Fumarate [Seroquel] 100 mg PO HS #30 tablet 08/12/16 Quetiapine Fumarate [Seroquel] 100 mg PO HS #30 tablet 10/24/16 Albuterol Sulfate Inhaler - [Ventolin HFA Inhaler -] 2 puff IH Q4H PRN #1 inhaler 10/26/16 Gabapentin [Neurontin] 300 mg PO TID #90 capsule 10/26/16 - Diagnosis (1) Alcohol dependence with uncomplicated withdrawal Status: Acute (2) Cocaine dependence Status: Acute Qualifiers: Substance use status: uncomplicated Qualified Code(s): F14.20 - Cocaine dependence, uncomplicated (3) Marijuana dependence Status: Acute (4) Nicotine dependence Status: Chronic Qualifiers: Nicotine product type: cigarettes Substance use status: in withdrawal Qualified Code(s): F17.213 - Nicotine dependence, cigarettes, with withdrawal (5) Substance induced mood disorder Status: Acute (6) Anxiety and depression Status: Chronic (7) Asthma Status: Chronic Qualifiers: Asthma severity: mild intermittent Asthma complication type: uncomplicated Qualified Code(s): J45.20 - Mild intermittent asthma, uncomplicated (8) GERD (gastroesophageal reflux disease) Status: Chronic Qualifiers: Esophagitis presence: without esophagitis Qualified Code(s): K21.9 - Gastro-esophageal reflux disease without esophagitis (9) History of head injury Status: Chronic (10) History of seizure Status: Chronic (11) Insomnia Status: Chronic Qualifiers: Insomnia type: unspecified Qualified Code(s): G47.00 - Insomnia, unspecified - AMA Did Patient Leave Against Medical Advice: Yes (PT HAD PERSONAL ISSUE AND DID NOT WISH TO STAY TO COMPLETE DETOX REGIMEN.)
[2016-10-26] MEDS ORDERED: chlordiazePOXIDE HCL 10 MG CAPSULE PO SCH (23:00)
== END 2016-10-26 09:20 | disposition left against medical advice (07) | DRG 770 ==
LOC: YASAS 22:13 → Y3N 22:47
PROVIDERS: ADMIT Internal Medicine Addiction Medicine; ATTEND Internal Medicine
PROC: HZ2ZZZZ Detoxification Services for Substance Abuse Treatment (ICD-10-PCS; principal; 2016-10-23)
DX: F10.230 Alcohol dependence with withdrawal, uncomplicated (principal); F14.20 Cocaine dependence, uncomplicated; F12.20 Cannabis dependence, uncomplicated; F17.213 Nicotine dependence, cigarettes, with withdrawal; F19.24 Other psychoactive substance dependence with psychoactive substance-induced mood disorder; F41.8 Other specified anxiety disorders; R00.0 Tachycardia, unspecified; J45.20 Mild intermittent asthma, uncomplicated; K21.9 Gastro-esophageal reflux disease without esophagitis; G47.00 Insomnia, unspecified; G40.909 Epilepsy, unspecified, not intractable, without status epilepticus; Z88.6 Allergy status to analgesic agent
CPT/HCPCS: 36415; 80053; 81003; 85027; 86593; 93005; 93010

== ENCOUNTER 2016-11-26 22:51 | Inpatient (IN) | payer OTHER ==
--- NOTE | 2016-11-26 23:02 | HP ---
CIWA Score - CIWA Score Nausea/Vomitin Muscle Tremors: 2 Anxiety: 3 Agitation: 1-Slight > Activity Paroxysmal Sweats: 2 Orientation: 1-Uncertain about Date Tacttile Disturbances: 2-Mild Itch/Numbness/Burn Auditory Disturbances: 1-Very Mild Visual Disturbances: 1-Very Mild Sensitivity Headache: 1-Very Mild CIWA-Ar Total Score: 16 Admission ROS BHS - HPI Chief Complaint: WITHDRAWAL SYMPTOMS Allergies/Adverse Reactions: Allergies Allergy/AdvReac Type Severity Reaction Status Date / Time ketamine Allergy Severe disoriented Verified 10/24/16 01:13 and confused acetaminophen [From Tylenol] Allergy Intermediate Nausea Verified 10/24/16 01:13 History of Present Illness: 31 Y.O. WITH A HISTORY OF ALCOHOL DEPENDENCE IS HERE FOR DETOX. HE'S HAD MULTIPLE ADMISSIONS HERE AND WAS LAST HERE ON 10/26/16. Exam Limitations: Intoxication - Ebola screening Have you traveled outside of the country in the last 21 days: No (N) Have you had contact with anyone from an Ebola affected area: No Do you have a fever: No - Review of Systems Constitutional: Diaphoresis, Changes in sleep EENT: reports: Double Vision, Tearing Respiratory: reports: No Symptoms reported Cardiac: reports: No Symptoms Reported GI: reports: Diarrhea : reports: No Symptoms Reported Musculoskeletal: reports: Back Pain, Neck Pain, Joint Stiffness Integumentary: reports: No Symptoms Reported Neuro: reports: Headache Endocrine: reports: No Symptoms Reported Hematology: reports: No Symptoms Reported Psychiatric: reports: Mood/Affect Appropiate, Anxious, Depressed Other Systems: Reviewed and Negative Patient History - Patient Medical History Hx Anemia: No Hx Asthma: Yes Hx Chronic Obstructive Pulmonary Disease (COPD): No Hx Cancer: No Hx Cardiac Disorders: No Hx Congestive Heart Failure: No Hx Hypertension: Yes Hx Hypercholesterolemia: No Hx Pacemaker: No HX Cerebrovascular Accident: No Hx Seizures: Yes Hx Dementia: No Hx Diabetes: No Hx Gastrointestinal Disorders: No Hx Liver Disease: No Hx Genitourinary Disorders: No Hx Sexually Transmitted Disorders: No Hx Renal Disease (ESRD): No Hx Thyroid Disease: No Hx Human Immunodeficiency Virus (HIV): No Hx Hepatitis C: No Hx Depression: Yes Hx Suicide Attempt: No Hx Bipolar Disorder: No Hx Schizophrenia: No - Patient Surgical History Past Surgical History: Yes Hx Neurologic Surgery: No Hx Cataract Extraction: No Hx Cardiac Surgery: No Hx Lung Surgery: No Hx Breast Surgery: No Hx Breast Biopsy: No Hx Abdominal Surgery: No Hx Appendectomy: No Hx Cholecystectomy: No Hx Genitourinary Surgery: No Hx Section: No Hx Orthopedic Surgery: Yes (RIGHT SHOULDER(DISLOCATED) 06/2015) Anesthesia Reaction: No - PPD History Previous Implant?: Yes Documented Results: Negative w/proof Implanted On Prior [facility] Admission?: Yes Date: 01/04/16 Results: 0 mm PPD to be Administered?: No - Reproductive History Patient is a Female of Child Bearing Age (11 -55 yrs old): No - Smoking Cessation Smoking history: Current every day smoker Have you smoked in the past 12 months: Yes Aproximately how many cigarettes per day: 30 Cigars Per Day: 0 Hx Chewing Tobacco Use: No Initiated information on smoking cessation: Yes 'Breaking Loose' booklet given: 11/26/16 - Substance & Tx. History Hx Alcohol Use: Yes Hx Substance Use: No Substance Use Type: Alcohol Hx Substance Use Treatment: Yes - Substances Abused Alcohol Route: Oral Frequency: Daily Amount used: 7-8 40OZ OF BEER Age of first use: 13 Date of Last Use: 11/26/16 Family Disease History - Family Disease History Family Disease History: Diabetes: Grandparent (grandmother alcohol, ), Heart Disease: Grandparent, Other: Grandparent, Mother (alcohol, hepatitis), Brother ( alcohol,seizure,) Admission Physical Exam BHS - Vital Signs Vital Signs: Last Vital Signs Temp Pulse Resp BP Pulse Ox 97.8 F 88 18 160/100 11/26/16 23:01 11/26/16 23:01 11/26/16 23:01 11/26/16 23:01 - Physical General Appearance: Yes: Alcohol on Breath, Sweating, Anxious HEENTM: Yes: Hearing grossly Normal, Normocephalic, Normal Voice Respiratory: Yes: Chest Non-Tender, Lungs Clear, Normal Breath Sounds, No Respiratory Distress, No Accessory Muscle Use Neck: Yes: No masses,lesions,Nodules, Trachea in good position Breast: Yes: Breast Exam Deferred Cardiology: Yes: Regular Rhythm, Regular Rate Abdominal: Yes: Normal Bowel Sounds, Non Tender, Flat, Soft Genitourinary: Yes: Other (NO COMPLAINTS REPORTED) Back: Yes: Normal Inspection Musculoskeletal: Yes: full range of Motion, Gait Steady Extremities: Yes: Normal Capillary Refill, Normal Inspection, Normal Range of Motion, Non-Tender Neurological: Yes: buttermaker helper II-XII NML intact, Alert, Motor Strength 5/5, Normal Mood /Affect, Normal Response Integumentary: Yes: Normal Color, Dry, Warm Lymphatic: Yes: Within Normal Limits - Diagnostic (1) Alcohol dependence with uncomplicated intoxication Current Visit: Yes Status: Chronic (2) Asthma Current Visit: Yes Status: Chronic Qualifiers: Asthma severity: mild intermittent Asthma complication type: uncomplicated Qualified Code(s): J45.20 - Mild intermittent asthma, uncomplicated (3) Nicotine dependence Current Visit: Yes Status: Chronic Qualifiers: Nicotine product type: cigarettes Substance use status: in withdrawal Qualified Code(s): F17.213 - Nicotine dependence, cigarettes, with withdrawal Cleared for Admission S - Detox or Rehab [facility] Level of Care: Medically Managed Detox Regimen/Protocol: Librium S Breath Alcohol Content Breath Alcohol Content: 0.196
[2016-11-26] MEDS ORDERED: P-EPHED 60MG/TRIPROLIDI 2.5MG TABLET PO PRN (23:10)
[2016-11-26] MEDS ORDERED: chlordiazePOXIDE HCL 25 MG CAPSULE PO ONE (23:10)
[2016-11-26] MEDS ORDERED: MAGNESIUM CITRATE 300 ML BOTTLE PO PRN (23:10)
[2016-11-26] MEDS ORDERED: MAGNESIUM HYDROX 2400MG/30ML ORAL SUSPENSION 30 ML CUP PO PRN (23:10)
[2016-11-26] MEDS ORDERED: guaiFENesin/D-METHORPHAN HB 10 ML UNIT-DOSE CUPS PO PRN (23:10)
[2016-11-26] MEDS ORDERED: MENTHOL/PHENOL 1 EACH UD MM PRN (23:10)
[2016-11-26] MEDS ORDERED: LOPERAMIDE HCL 2 MG CAPSULE PO PRN (23:10)
[2016-11-26] MEDS ORDERED: ALBUTEROL SO4 18 GM HFA INHALER IH PRN (23:41)
[2016-11-26] MEDS ORDERED: QUEtiapine FUMARATE 50 MG TABLET PO ONE (23:41)
[2016-11-27] MEDS: diphenhydrAMINE HCL 50 MG CAPSULE PO PRN (00:42)
[2016-11-27 01:08] VITALS: BMI 29.2
[2016-11-27] MEDS: chlordiazePOXIDE HCL 25 MG CAPSULE PO SCH ×5 (01:11→22:11)
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
--- NOTE | 2016-11-27 09:59 | EKG ---
Test Reason : Blood Pressure : / mmHG Vent. Rate : 086 BPM Atrial Rate : 086 BPM P-R Int : 150 ms QRS Dur : 094 ms QT Int : 344 ms P-R-T Axes : 065 046 046 degrees QTc Int : 411 ms NORMAL SINUS RHYTHM NORMAL ECG WHEN COMPARED WITH ECG OF 23-OCT-2016 22:49, NO SIGNIFICANT CHANGE WAS FOUND Confirmed by WILLIAN RAUSCH MD ([id number]) on 11/27/2016 9:58:37 AM Referred By: Confirmed By:WILLIAN RAUSCH MD
[2016-11-27 10:13] LABS: MCHC 34.7 g/dl (32.0-35.9); MEAN PLT VOLUME 8.7 fl (7.5-11.1); PLATELET COUNT 209 K/MM3 (134-434); RDW 13.8 % (11.9-15.9); WHITE BLOOD COUNT 6.7 K/mm3 (4.0-10.0)
[2016-11-27] MEDS: PRENATAL VITAMINS W/ FOLIC ACID TABLET (FP) PO SCH (10:51)
[2016-11-27 11:00] LABS: ALBUMIN 3.7 g/dl (3.4-5.0); ALK PHOS 82 U/L (45-117); ANION GAP 9 (8-16); BILIRUBIN,TOTAL 0.6 mg/dL (0.2-1.0); CALCIUM 8.4 mg/dL (8.5-10.1); CO2 25 mmol/L (21-32); CREATININE 0.9 mg/dL (0.7-1.3); GLUCOSE,RANDOM 95 mg/dL (74-106); SGOT/AST 24 U/L (15-37); SGPT/ALT 26 U/L (12-78); TOT PROT 6.8 g/dl (6.4-8.2)
--- NOTE | 2016-11-27 14:30 | PN ---
S CIWA - CIWA Score Nausea/Vomitin Muscle Tremors: 4-Moderate,w/Arms Extend Anxiety: 4-Mod. Anxious/Guarded Agitation: 2 Paroxysmal Sweats: 4-Forehead w/Sweat Beads Orientation: 0-Oriented Tacttile Disturbances: 1-Very Mild Itch/Numbness Auditory Disturbances: 0-None Visual Disturbances: 0-None Headache: 1-Very Mild CIWA-Ar Total Score: 19 BHS Progress Note (SOAP) Subjective: Chills, tremor, sweating, interrupted sleep Objective: 11/27/16 14:28 Last Vital Signs Temp Pulse Resp BP Pulse Ox 97.5 F L 87 20 135/90 11/27/16 14:05 11/27/16 14:05 11/27/16 14:05 11/27/16 14:05 Laboratory Tests 11/27/16 11/27/16 11/27/16 08:00 08:00 08:00 WBC 6.7 RBC 4.71 Hgb 15.1 Hct 43.4 MCV 92.0 MCH 32.0 MCHC 34.7 RDW 13.8 Plt Count 209 D MPV 8.7 Sodium 138 Potassium 3.4 L D Chloride 104 Carbon Dioxide 25 Anion Gap 9 BUN 10 D Creatinine 0.9 Creat Clearance w eGFR > 60 Random Glucose 95 Calcium 8.4 L Total Bilirubin 0.6 AST 24 D ALT 26 Alkaline Phosphatase 82 Total Protein 6.8 Albumin 3.7 RPR Titer Nonreactive Labs noted: K 3.4 Assessment: 11/27/16 14:29 Withdrawal symptoms Noted with mild hypokalemia Plan: Continue detox Hypokalemia: K Dur 40meq PO x 1 dose Repeat serum K level in AM
[2016-11-27] MEDS ORDERED: POTASSIUM CHLORIDE TABS 20 MEQ TABLET.ER (FP) PO ONE (15:15)
[2016-11-27] MEDS: GABAPENTIN 300 MG CAPSULE (FP) PO SCH ×2 (15:22→22:11)
[2016-11-27] MEDS: chlordiazePOXIDE HCL 25 MG CAPSULE PO PRN ×2 (15:23→19:47)
[2016-11-27] MEDS ORDERED: NICOTINE POLACRILEX 4 MG GUM BUC PRN (17:45)
[2016-11-27] MEDS: NICOTINE 21 MG/24 HOURS TOPICAL PATCH TD SCH (18:10)
[2016-11-27] MEDS: IBUPROFEN 400 MG TABLET (FP) PO PRN (18:12)
[2016-11-27] MEDS: THIAMINE HCL 100 MG TABLET (FP) PO SCH (22:11)
[2016-11-27] MEDS: QUEtiapine FUMARATE 200 MG TABLET PO SCH (22:12)
[2016-11-28] MEDS: chlordiazePOXIDE HCL 25 MG CAPSULE PO PRN ×4 (03:04→19:59)
[2016-11-28] MEDS: GABAPENTIN 300 MG CAPSULE (FP) PO SCH ×3 (05:34→22:17)
[2016-11-28] MEDS: chlordiazePOXIDE HCL 25 MG CAPSULE PO SCH ×3 (05:34→17:49)
[2016-11-28] MEDS: PRENATAL VITAMINS W/ FOLIC ACID TABLET (FP) PO SCH (10:19)
[2016-11-28] MEDS: NICOTINE 21 MG/24 HOURS TOPICAL PATCH TD SCH (10:19)
[2016-11-28] MEDS: MAG HYDROX/AL HYDROX/SIMETH 30 ML UNIT-DOSE CUP PO PRN ×2 (10:20→22:23)
--- NOTE | 2016-11-28 11:25 | PN ---
[facility] CIWA - CIWA Score Nausea/Vomitin-No Nausea/No Vomiting Muscle Tremors: 4-Moderate,w/Arms Extend Anxiety: 4-Mod. Anxious/Guarded Agitation: 4-Moderately Restless Paroxysmal Sweats: 1-Minimal Palms Moist Orientation: 0-Oriented Tacttile Disturbances: 3-Moderate Itch/Numb/Burn Auditory Disturbances: 0-None Visual Disturbances: 0-None Headache: 0-None Present CIWA-Ar Total Score: 16 BHS Progress Note (SOAP) Subjective: ANXIETY,TREMORS,SWEATS,IRRITABILITY. HX ELEVATED BP ON/OFF PER PATIENT. Objective: 11/28/16 11:25 Vital Signs 11/28/16 11/28/16 11/28/16 03:30 06: 08:54 Temperature 96.9 F L 97.5 F L Pulse Rate 111 H 112 H Respiratory 20 18 18 Rate Blood Pressure 150/92 140/104 Laboratory Last Values WBC 6.7 K/mm3 (4.0-10.0) 11/27/16 08:00 RBC 4.71 M/mm3 (4.00-5.60) 11/27/16 08:00 Hgb 15.1 GM/dL (11.7-16.9) 11/27/16 08:00 Hct 43.4 % (35.4-49) 11/27/16 08:00 MCV 92.0 fl (80-96) 11/27/16 08:00 MCH 32.0 pg (25.7-33.7) 11/27/16 08:00 MCHC 34.7 g/dl (32.0-35.9) 11/27/16 08:00 RDW 13.8 % (11.9-15.9) 11/27/16 08:00 Plt Count 209 K/MM3 (134-434) D 11/27/16 08:00 MPV 8.7 fl (7.5-11.1) 11/27/16 08:00 Sodium 138 mmol/L (136-145) 11/27/16 08:00 Potassium 3.9 mmol/L (3.5-5.1) 11/28/16 07:30 Chloride 104 mmol/L (98-107) 11/27/16 08:00 Carbon Dioxide 25 mmol/L (21-32) 11/27/16 08:00 Anion Gap 9 (8-16) 11/27/16 08:00 BUN 10 mg/dL (7-18) D 11/27/16 08:00 Creatinine 0.9 mg/dL (0.7-1.3) 11/27/16 08:00 Creat Clearance w eGFR > 60 (>60) 11/27/16 08:00 Random Glucose 95 mg/dL (74-106) 11/27/16 08:00 Calcium 8.4 mg/dL (8.5-10.1) L 11/27/16 08:00 Total Bilirubin 0.6 mg/dL (0.2-1.0) 11/27/16 08:00 AST 24 U/L (15-37) D 11/27/16 08:00 ALT 26 U/L (12-78) 11/27/16 08:00 Alkaline Phosphatase 82 U/L (45-117) 11/27/16 08:00 Total Protein 6.8 g/dl (6.4-8.2) 11/27/16 08:00 Albumin 3.7 g/dl (3.4-5.0) 11/27/16 08:00 RPR Titer Nonreactive (NONREACTIVE) 11/27/16 08:00 Assessment: 11/28/16 11:25 WITHDRAWAL SX Plan: CONTINUE DETOX
[2016-11-28] MEDS ORDERED: ALBUTEROL SO4 18 GM HFA INHALER IH PRN (11:38)
[2016-11-28] MEDS: CYCLOBENZAPRINE HCL 10 MG TABLET (FP) PO PRN ×2 (11:58→22:17)
[2016-11-28] MEDS: hydrOXYzine PAMOATE 50 MG CAPSULE (FP) PO PRN (15:42)
[2016-11-28] MEDS: IBUPROFEN 400 MG TABLET (FP) PO PRN (17:50)
--- NOTE | 2016-11-28 18:34 | PN ---
BHS Progress Note Note: received nurse call that the patient needs urine analysis order continue detox
[2016-11-28 22:12] LABS: URINE APPEARANCE CLEAR; URINE BILIRUBIN NEGATIVE (NEGATIVE); URINE BLOOD NEGATIVE (NEGATIVE); URINE COLOR LTYELLOW; URINE GLUCOSE (UA) NEGATIVE (NEGATIVE); URINE KETONE NEGATIVE (NEGATIVE); URINE LEUK ESTERASE NEGATIVE (NEGATIVE); URINE NITRITE NEGATIVE (NEGATIVE); URINE PROTEIN NEGATIVE (NEGATIVE); URINE UROBILINOGEN NEGATIVE mg/dL (0.2-1.0)
[2016-11-28] MEDS: chlordiazePOXIDE 5 MG CAPSULE PO SCH (22:16)
[2016-11-28] MEDS: THIAMINE HCL 100 MG TABLET (FP) PO SCH (22:16)
[2016-11-28] MEDS: cloNIDine HCL 0.1 MG TABLET PO SCH (22:17)
[2016-11-28] MEDS: QUEtiapine FUMARATE 200 MG TABLET PO SCH (22:17)
[2016-11-29] MEDS: chlordiazePOXIDE 5 MG CAPSULE PO SCH ×3 (05:35→17:09)
[2016-11-29] MEDS: GABAPENTIN 300 MG CAPSULE (FP) PO SCH ×3 (05:35→22:36)
[2016-11-29] MEDS: NICOTINE 21 MG/24 HOURS TOPICAL PATCH TD SCH (10:24)
[2016-11-29] MEDS: cloNIDine HCL 0.1 MG TABLET PO SCH ×2 (10:24→22:36)
[2016-11-29] MEDS: PRENATAL VITAMINS W/ FOLIC ACID TABLET (FP) PO SCH (10:24)
[2016-11-29] MEDS: IBUPROFEN 400 MG TABLET (FP) PO PRN ×2 (10:39→17:13)
[2016-11-29] MEDS: hydrOXYzine PAMOATE 50 MG CAPSULE (FP) PO PRN ×2 (10:39→17:14)
[2016-11-29] MEDS: CYCLOBENZAPRINE HCL 10 MG TABLET (FP) PO PRN (10:39)
--- NOTE | 2016-11-29 12:48 | PN ---
BHS Progress Note (SOAP) Subjective: IRRITABILITY,SWEATS/CHILLS,MUSCLE SORENESS/CRAMPS,TWITCHING. Objective: 11/29/16 12:47 Vital Signs Temperature 95.9 F L 11/29/16 09:14 Pulse Rate 81 11/29/16 09:14 Respiratory Rate 18 11/29/16 09:14 Blood Pressure 124/57 11/29/16 09:14 O2 Sat by Pulse Oximetry (%) Laboratory Last Values WBC 6.7 K/mm3 (4.0-10.0) 11/27/16 08:00 RBC 4.71 M/mm3 (4.00-5.60) 11/27/16 08:00 Hgb 15.1 GM/dL (11.7-16.9) 11/27/16 08:00 Hct 43.4 % (35.4-49) 11/27/16 08:00 MCV 92.0 fl (80-96) 11/27/16 08:00 MCH 32.0 pg (25.7-33.7) 11/27/16 08:00 MCHC 34.7 g/dl (32.0-35.9) 11/27/16 08:00 RDW 13.8 % (11.9-15.9) 11/27/16 08:00 Plt Count 209 K/MM3 (134-434) D 11/27/16 08:00 MPV 8.7 fl (7.5-11.1) 11/27/16 08:00 Sodium 138 mmol/L (136-145) 11/27/16 08:00 Potassium 3.9 mmol/L (3.5-5.1) 11/28/16 07:30 Chloride 104 mmol/L (98-107) 11/27/16 08:00 Carbon Dioxide 25 mmol/L (21-32) 11/27/16 08:00 Anion Gap 9 (8-16) 11/27/16 08:00 BUN 10 mg/dL (7-18) D 11/27/16 08:00 Creatinine 0.9 mg/dL (0.7-1.3) 11/27/16 08:00 Creat Clearance w eGFR > 60 (>60) 11/27/16 08:00 Random Glucose 95 mg/dL (74-106) 11/27/16 08:00 Calcium 8.4 mg/dL (8.5-10.1) L 11/27/16 08:00 Total Bilirubin 0.6 mg/dL (0.2-1.0) 11/27/16 08:00 AST 24 U/L (15-37) D 11/27/16 08:00 ALT 26 U/L (12-78) 11/27/16 08:00 Alkaline Phosphatase 82 U/L (45-117) 11/27/16 08:00 Total Protein 6.8 g/dl (6.4-8.2) 11/27/16 08:00 Albumin 3.7 g/dl (3.4-5.0) 11/27/16 08:00 Urine Color Ltyellow 11/28/16 17:55 Urine Appearance Clear 11/28/16 17:55 Urine pH 6.0 (5.0-8.0) 11/28/16 17:55 Ur Specific [place] 1.020 (1.005-1.025) 11/28/16 17:55 Urine Protein Negative (NEGATIVE) 11/28/16 17:55 Urine Glucose (UA) Negative (NEGATIVE) 11/28/16 17:55 Urine Ketones Negative (NEGATIVE) 11/28/16 17:55 Urine Blood Negative (NEGATIVE) 11/28/16 17:55 Urine Nitrite Negative (NEGATIVE) 11/28/16 17:55 Urine Bilirubin Negative (NEGATIVE) 11/28/16 17:55 Urine Urobilinogen Negative mg/dL (0.2-1.0) 11/28/16 17:55 RPR Titer Nonreactive (NONREACTIVE) 11/27/16 08:00 Assessment: 11/29/16 12:47 WITHDRAWAL SX Plan: CONTINUE DETOX
[2016-11-29] MEDS: CYCLOBENZAPRINE HCL 10 MG TABLET (FP) PO SCH ×2 (13:34→22:36)
[2016-11-29] MEDS ORDERED: chlordiazePOXIDE HCL 25 MG CAPSULE PO ONE (14:30)
[2016-11-29] MEDS: chlordiazePOXIDE HCL 25 MG CAPSULE PO PRN (19:55)
[2016-11-29] MEDS: QUEtiapine FUMARATE 200 MG TABLET PO SCH (22:36)
[2016-11-29] MEDS: THIAMINE HCL 100 MG TABLET (FP) PO SCH (22:36)
[2016-11-29] MEDS: chlordiazePOXIDE HCL 10 MG CAPSULE PO SCH (22:36)
[2016-11-29] MEDS: diphenhydrAMINE HCL 50 MG CAPSULE PO PRN (22:38)
[2016-11-30] MEDS: hydrOXYzine PAMOATE 50 MG CAPSULE (FP) PO PRN (03:43)
[2016-11-30] MEDS: CYCLOBENZAPRINE HCL 10 MG TABLET (FP) PO SCH (05:37)
[2016-11-30] MEDS: GABAPENTIN 300 MG CAPSULE (FP) PO SCH (05:37)
[2016-11-30] MEDS: chlordiazePOXIDE HCL 10 MG CAPSULE PO SCH (05:37)
[2016-11-30 06:30] VITALS: BP 113/63; PULSE 82; TEMP 96.7
--- NOTE | 2016-11-30 12:25 | DS ---
[facility] Detox Discharge Summary Admission Date: 11/26/16 Discharge Date: 11/30/16 - History Present History: Alcohol Dependence, Cannabis Dependence, Cocaine Dependence Additional Comments: DETOX COMPLETED. PATIENT IS ALERT AND ORIENTED X 3. NOT IN ACUTE DISTRESS. PT IS TO FOLLOW UP PMD AT [facility]. Pertinent Past History: ASTHMA, GERD, H/O SEIZURE, NICOTINE DEPENDENCE, H/O ANXIETY, INSOMNIA AND DEPRESSION - Physical Exam Results Vital Signs: Vital Signs Temperature 96.7 F L 11/30/16 06:29 Pulse Rate 82 11/30/16 06:29 Respiratory Rate 18 11/30/16 06:29 Blood Pressure 113/63 11/30/16 06:29 O2 Sat by Pulse Oximetry (%) Laboratory Tests 11/27/16 11/27/16 11/27/16 08:00 08:00 08:00 WBC 6.7 RBC 4.71 Hgb 15.1 Hct 43.4 MCV 92.0 MCH 32.0 MCHC 34.7 RDW 13.8 Plt Count 209 D MPV 8.7 Sodium 138 Potassium 3.4 L D Chloride 104 Carbon Dioxide 25 Anion Gap 9 BUN 10 D Creatinine 0.9 Creat Clearance w eGFR > 60 Random Glucose 95 Calcium 8.4 L Total Bilirubin 0.6 AST 24 D ALT 26 Alkaline Phosphatase 82 Total Protein 6.8 Albumin 3.7 Urine Color Urine Appearance Urine pH Ur Specific [place] Urine Protein Urine Glucose (UA) Urine Ketones Urine Blood Urine Nitrite Urine Bilirubin Urine Urobilinogen RPR Titer Nonreactive 11/28/16 11/28/16 07:30 17:55 WBC RBC Hgb Hct MCV MCH MCHC RDW Plt Count MPV Sodium Potassium 3.9 Chloride Carbon Dioxide Anion Gap BUN Creatinine Creat Clearance w eGFR Random Glucose Calcium Total Bilirubin AST ALT Alkaline Phosphatase Total Protein Albumin Urine Color Ltyellow Urine Appearance Clear Urine pH 6.0 Ur Specific [place] 1.020 Urine Protein Negative Urine Glucose (UA) Negative Urine Ketones Negative Urine Blood Negative Urine Nitrite Negative Urine Bilirubin Negative Urine Urobilinogen Negative RPR Titer Laboratory Last Values WBC 6.7 K/mm3 (4.0-10.0) 11/27/16 08:00 RBC 4.71 M/mm3 (4.00-5.60) 11/27/16 08:00 Hgb 15.1 GM/dL (11.7-16.9) 11/27/16 08:00 Hct 43.4 % (35.4-49) 11/27/16 08:00 MCV 92.0 fl (80-96) 11/27/16 08:00 MCH 32.0 pg (25.7-33.7) 11/27/16 08:00 MCHC 34.7 g/dl (32.0-35.9) 11/27/16 08:00 RDW 13.8 % (11.9-15.9) 11/27/16 08:00 Plt Count 209 K/MM3 (134-434) D 11/27/16 08:00 MPV 8.7 fl (7.5-11.1) 11/27/16 08:00 Sodium 138 mmol/L (136-145) 11/27/16 08:00 Potassium 3.9 mmol/L (3.5-5.1) 11/28/16 07:30 Chloride 104 mmol/L (98-107) 11/27/16 08:00 Carbon Dioxide 25 mmol/L (21-32) 11/27/16 08:00 Anion Gap 9 (8-16) 11/27/16 08:00 BUN 10 mg/dL (7-18) D 11/27/16 08:00 Creatinine 0.9 mg/dL (0.7-1.3) 11/27/16 08:00 Creat Clearance w eGFR > 60 (>60) 11/27/16 08:00 Random Glucose 95 mg/dL (74-106) 11/27/16 08:00 Calcium 8.4 mg/dL (8.5-10.1) L 11/27/16 08:00 Total Bilirubin 0.6 mg/dL (0.2-1.0) 11/27/16 08:00 AST 24 U/L (15-37) D 11/27/16 08:00 ALT 26 U/L (12-78) 11/27/16 08:00 Alkaline Phosphatase 82 U/L (45-117) 11/27/16 08:00 Total Protein 6.8 g/dl (6.4-8.2) 11/27/16 08:00 Albumin 3.7 g/dl (3.4-5.0) 11/27/16 08:00 Urine Color Ltyellow 11/28/16 17:55 Urine Appearance Clear 10/02/17 17:55 Urine pH 6.0 (5.0-8.0) 11/28/16 17:55 Ur Specific [place] 1.020 (1.005-1.025) 11/28/16 17:55 Urine Protein Negative (NEGATIVE) 11/28/16 17:55 Urine Glucose (UA) Negative (NEGATIVE) 11/28/16 17:55 Urine Ketones Negative (NEGATIVE) 11/28/16 17:55 Urine Blood Negative (NEGATIVE) 11/28/16 17:55 Urine Nitrite Negative (NEGATIVE) 11/28/16 17:55 Urine Bilirubin Negative (NEGATIVE) 11/28/16 17:55 Urine Urobilinogen Negative mg/dL (0.2-1.0) 11/28/16 17:55 RPR Titer Nonreactive (NONREACTIVE) 11/27/16 08:00 hypokalemia on admission corrected wioth k supplementation Pertinent Admission Physical Exam Findings: WITHDRAWAL SX - Treatment Hospital Course: Detox Protocol Followed, Detoxed Safely, Responded well, Discharged Condition Good Patient has Accepted a Rehab Referral to: yes, PT STATES " I AM GOING TO [facility] [place], [place] - Medication Discharge Medications: Ambulatory Orders Gabapentin 300 mg PO TID #90 capsule 11/27/16 Quetiapine Fumarate [Seroquel -] 200 mg PO HS #30 tab 11/27/16 Albuterol Sulfate Inhaler - [Ventolin HFA Inhaler -] 2 puff IH Q4H PRN #1 inhaler 11/30/16 - Diagnosis (1) Alcohol dependence with uncomplicated withdrawal Status: Acute (2) Marijuana dependence Status: Acute (3) Nicotine dependence Status: Acute Qualifiers: Nicotine product type: cigarettes Substance use status: in withdrawal Qualified Code(s): F17.213 - Nicotine dependence, cigarettes, with withdrawal; F17.213 - Nicotine dependence, cigarettes, with withdrawal (4) Asthma Status: Chronic Qualifiers: Asthma severity: mild Asthma complication type: uncomplicated (5) GERD (gastroesophageal reflux disease) Status: Chronic Qualifiers: Esophagitis presence: without esophagitis Qualified Code(s): K21.9 - Gastro-esophageal reflux disease without esophagitis; K21.9 - Gastro- esophageal reflux disease without esophagitis; K21.9 - Gastro-esophageal reflux disease without esophagitis (6) History of seizure Status: Chronic - AMA Did Patient Leave Against Medical Advice: No
--- NOTE | 2016-12-01 12:25 | PN ---
[facility] Progress Note Note: Discharge summary reviewed and written in collaboration with Isabel De La Rosa NP note cosigned, please bill under Facundomery Bowles MD
== END 2016-11-30 08:58 | disposition home or self-care (01) | DRG 774 ==
LOC: ASASADM 22:51 → Y3N 22:58
PROVIDERS: ADMIT Internal Medicine; ATTEND Internal Medicine
PROC: HZ2ZZZZ Detoxification Services for Substance Abuse Treatment (ICD-10-PCS; principal; 2016-11-26)
DX: F10.230 Alcohol dependence with withdrawal, uncomplicated (principal); F10.220 Alcohol dependence with intoxication, uncomplicated; F14.20 Cocaine dependence, uncomplicated; F12.20 Cannabis dependence, uncomplicated; F17.213 Nicotine dependence, cigarettes, with withdrawal; F19.24 Other psychoactive substance dependence with psychoactive substance-induced mood disorder; F19.282 Other psychoactive substance dependence with psychoactive substance-induced sleep disorder; J45.20 Mild intermittent asthma, uncomplicated; I10 Essential (primary) hypertension; K21.9 Gastro-esophageal reflux disease without esophagitis; E87.6 Hypokalemia; Z88.8 Allergy status to other drugs, medicaments and biological substances; Z86.69 Personal history of other diseases of the nervous system and sense organs
CPT/HCPCS: 36415; 80053; 81003; 84132; 85027; 86593; 93005; 93010

== ENCOUNTER 2017-01-27 23:57 | Inpatient (IN) | payer OTHER ==
--- NOTE | 2017-01-28 00:11 | HP ---
CIWA Score - CIWA Score Nausea/Vomitin Muscle Tremors: 4-Moderate,w/Arms Extend Anxiety: 4-Mod. Anxious/Guarded Agitation: 4-Moderately Restless Paroxysmal Sweats: 3 Orientation: 1-Uncertain about Date Tacttile Disturbances: 3-Moderate Itch/Numb/Burn Auditory Disturbances: 0-None Visual Disturbances: 2-Mild Sensitivity Headache: 2-Mild CIWA-Ar Total Score: 26 Admission ROS BHS - HPI Chief Complaint: c/o withdrawal sx's. seeking detox txment for alcohol dependence Allergies/Adverse Reactions: Allergies Allergy/AdvReac Type Severity Reaction Status Date / Time ketamine Allergy Severe disoriented Verified 10/24/16 01:13 and confused acetaminophen [From Tylenol] Allergy Intermediate Nausea Verified 10/24/16 01:13 History of Present Illness: 31 Y.O. MALE WITH ALCOHOLISM SEEKING ADMISSION FOR DETOX TXMENT. CLIENT IS KNOWN TO THIS PROGRAM LAST HERE 09/2016. REPORTS LONGEST CLEAN TIME 7 MONTHS. Exam Limitations: No Limitations - Ebola screening Have you traveled outside of the country in the last 21 days: No Have you had contact with anyone from an Ebola affected area: No Have you been sick,other than usual withdrawal symptoms: No Do you have a fever: No - Review of Systems Constitutional: Chills, Loss of Appetite, Night Sweats, Changes in sleep, Unintentional Wgt. Loss EENT: reports: Ear Pain (R EAR) Respiratory: reports: No Symptoms reported Cardiac: reports: No Symptoms Reported GI: reports: Poor Appetite, Vomiting : reports: No Symptoms Reported Musculoskeletal: reports: Other (RIB PAIN/CRAMPS ON BOTH SIDES) Integumentary: reports: No Symptoms Reported Neuro: reports: Seizure (07/2014 R/T ETOH WITHDRAWAL) Endocrine: reports: No Symptoms Reported Hematology: reports: No Symptoms Reported Psychiatric: reports: Anxious, Depressed Other Systems: Reviewed and Negative Patient History - Patient Medical History Hx Anemia: No Hx Asthma: Yes Hx Chronic Obstructive Pulmonary Disease (COPD): No Hx Cancer: No Hx Cardiac Disorders: No Hx Congestive Heart Failure: No Hx Hypertension: Yes Hx Hypercholesterolemia: No Hx Pacemaker: No HX Cerebrovascular Accident: No Hx Seizures: Yes Hx Dementia: No Hx Diabetes: No Hx Gastrointestinal Disorders: No Hx Liver Disease: No Hx Genitourinary Disorders: No Hx Sexually Transmitted Disorders: No Hx Renal Disease (ESRD): No Hx Thyroid Disease: No Hx Human Immunodeficiency Virus (HIV): No Hx Hepatitis C: No Hx Depression: Yes Hx Suicide Attempt: No Hx Bipolar Disorder: No Hx Schizophrenia: No Other Medical History: DENIES - Patient Surgical History Past Surgical History: Yes Hx Neurologic Surgery: No Hx Cataract Extraction: No Hx Cardiac Surgery: No Hx Lung Surgery: No Hx Breast Surgery: No Hx Breast Biopsy: No Hx Abdominal Surgery: No Hx Appendectomy: No Hx Cholecystectomy: No Hx Genitourinary Surgery: No Hx Section: No Hx Orthopedic Surgery: Yes (RIGHT SHOULDER(DISLOCATED) 06/2015) Anesthesia Reaction: No - PPD History Previous Implant?: Yes Documented Results: Negative w/proof Implanted On Prior [facility] Admission?: Yes Date: 01/04/16 Results: 0 mm PPD to be Administered?: Yes - Smoking Cessation Smoking history: Current every day smoker Have you smoked in the past 12 months: Yes Aproximately how many cigarettes per day: 30 Cigars Per Day: 0 Hx Chewing Tobacco Use: No Initiated information on smoking cessation: Yes 'Breaking Loose' booklet given: 01/28/17 - Substance & Tx. History Hx Alcohol Use: Yes Hx Substance Use: Yes Substance Use Type: Alcohol, Marijuana Hx Substance Use Treatment: Yes ([facility]) - Substances Abused BEER Route: Oral Frequency: Daily Amount used: 12-24 OZ Age of first use: 17 Date of Last Use: 01/27/17 Family Disease History - Family Disease History Family Disease History: Diabetes: Grandparent (grandmother alcohol, ), Heart Disease: Grandparent, Other: Grandparent, Mother (alcohol, hepatitis), Brother ( alcohol,seizure,) Admission Physical Exam [facility] Physical General Appearance: Yes: Appropriately Dressed, Mild Distress, Tremorous, Anxious HEENTM: Yes: EOMI, Normocephalic, DAE, Pharynx Normal, Other (MISSING TEETH) Respiratory: Yes: Chest Non-Tender, Lungs Clear, Normal Breath Sounds, No Respiratory Distress, No Accessory Muscle Use Neck: Yes: No masses,lesions,Nodules, Supple, Trachea in good position Breast: Yes: Breast Exam Deferred Cardiology: Yes: Regular Rhythm, S1, S2, Tachycardia Abdominal: Yes: Normal Bowel Sounds, Non Tender, Soft, Protuberent Genitourinary: Yes: Within Normal Limits Back: Yes: Normal Inspection Musculoskeletal: Yes: full range of Motion, Gait Steady Extremities: Yes: Normal Range of Motion, Non-Tender, Tremors Neurological: Yes: Alert, Motor Strength 5/5 Integumentary: Yes: Normal Color, Warm, Moist Lymphatic: Yes: Within Normal Limits - Diagnostic (1) Alcohol related seizure Current Visit: Yes Status: Chronic (2) HTN (hypertension) Current Visit: Yes Status: Chronic Qualifiers: Hypertension type: essential hypertension Qualified Code(s): I10 - Essential (primary) hypertension (3) Alcohol dependence with uncomplicated withdrawal Current Visit: No Status: Suspected (4) Marijuana dependence Current Visit: No Status: Chronic (5) Nicotine dependence Current Visit: No Status: Chronic Qualifiers: Nicotine product type: cigarettes Substance use status: in withdrawal Qualified Code(s): F17.213 - Nicotine dependence, cigarettes, with withdrawal (6) Asthma Current Visit: No Status: Chronic Qualifiers: Asthma severity: mild Asthma complication type: uncomplicated (7) GERD (gastroesophageal reflux disease) Current Visit: No Status: Chronic Qualifiers: Esophagitis presence: without esophagitis Qualified Code(s): K21.9 - Gastro -esophageal reflux disease without esophagitis Cleared for Admission BHS - Detox or Rehab [facility] Level of Care: Medically Managed Detox Regimen/Protocol: Librium S Breath Alcohol Content Breath Alcohol Content: 0.247 Vital Signs - Vital Signs Vital Signs Refused: No Temperature: 97.6 F Temperature Source: Oral Pulse Rate: 113 Respiratory Rate: 20 Blood Pressure: 164/95 BP Location: Left Arm Blood Pressure Position: Sitting - Height Height: 5 ft 11 in - Weight Weight: 92.533 kg Weight Measurement Method: Standing Scale Body Mass Index (BMI): 28.4 Urine Drug Screen - Test Device Lot Number: [id number] Expiration Date: 09/25/18 - Control Is Test Valid: Yes - Results Drug Screen Negative: No Urine Drug Screen Results: THC-Marijuana
[2017-01-28 00:18] VITALS: BMI 28.4
[2017-01-28] MEDS ORDERED: NICOTINE POLACRILEX 4 MG GUM BC PRN (00:22)
[2017-01-28] MEDS ORDERED: MAGNESIUM HYDROX 2400MG/30ML ORAL SUSPENSION 30 ML CUP PO PRN (00:22)
[2017-01-28] MEDS ORDERED: MAG HYDROX/AL HYDROX/SIMETH 30 ML UNIT-DOSE CUP PO PRN (00:22)
[2017-01-28] MEDS ORDERED: guaiFENesin/D-METHORPHAN HB 10 ML UNIT-DOSE CUPS PO PRN (00:22)
[2017-01-28] MEDS ORDERED: chlordiazePOXIDE HCL 25 MG CAPSULE PO ONE (00:22)
[2017-01-28] MEDS ORDERED: MENTHOL/PHENOL 1 EACH UD MM PRN (00:22)
[2017-01-28] MEDS ORDERED: MAGNESIUM CITRATE 300 ML BOTTLE PO PRN (00:22)
[2017-01-28] MEDS ORDERED: hydrOXYzine PAMOATE 50 MG CAPSULE (FP) PO PRN (00:22)
[2017-01-28] MEDS ORDERED: P-EPHED 60MG/TRIPROLIDI 2.5MG TABLET PO PRN (00:22)
[2017-01-28] MEDS ORDERED: LOPERAMIDE HCL 2 MG CAPSULE PO PRN (00:22)
[2017-01-28] MEDS ORDERED: IBUPROFEN 400 MG TABLET (FP) PO PRN (00:22)
[2017-01-28] MEDS ORDERED: ALBUTEROL SO4 18 GM HFA INHALER IH PRN (00:24)
[2017-01-28] MEDS ORDERED: ALBUTEROL SO4 2.5/IPRATROPIUM 0.5 INH SOL 3 ML VIAL.NEB. NEB PRN (00:25)
[2017-01-28] MEDS: cloNIDine HCL 0.1 MG TABLET PO PRN ×3 (01:53→23:24)
[2017-01-28] MEDS: chlordiazePOXIDE HCL 25 MG CAPSULE PO SCH ×4 (05:53→22:45)
--- NOTE | 2017-01-28 09:02 | EKG ---
Test Reason : Blood Pressure : / mmHG Vent. Rate : 088 BPM Atrial Rate : 088 BPM P-R Int : 152 ms QRS Dur : 094 ms QT Int : 350 ms P-R-T Axes : 055 037 041 degrees QTc Int : 423 ms NORMAL SINUS RHYTHM NORMAL ECG WHEN COMPARED WITH ECG OF 26-NOV-2016 23:49, NO SIGNIFICANT CHANGE WAS FOUND Confirmed by LEÓN RAY MD ([id number]) on 01/28/2017 9:01:56 AM Referred By: BOONE ANDRADE Confirmed By:LEÓN RAY MD
[2017-01-28 10:17] LABS: URINE APPEARANCE CLEAR; URINE BILIRUBIN NEGATIVE (NEGATIVE); URINE BLOOD NEGATIVE (NEGATIVE); URINE COLOR LTYELLOW; URINE GLUCOSE (UA) NEGATIVE (NEGATIVE); URINE KETONE NEGATIVE (NEGATIVE); URINE NITRITE NEGATIVE (NEGATIVE); URINE PROTEIN NEGATIVE (NEGATIVE); URINE UROBILINOGEN NEGATIVE mg/dL (0.2-1.0)
[2017-01-28] MEDS: PRENATAL VITAMINS W/ FOLIC ACID TABLET (FP) PO SCH (10:45)
[2017-01-28] MEDS: NICOTINE 21 MG/24 HOURS TOPICAL PATCH TD SCH (10:46)
[2017-01-28] MEDS: chlordiazePOXIDE HCL 25 MG CAPSULE PO PRN ×2 (13:20→20:51)
--- NOTE | 2017-01-28 13:56 | PN ---
BHS Progress Note Note: Pt. was admitted earlier today, c/o withdrawal sx. Vital Signs - 8 hr 01/28/17 01/28/17 06:00 10:24 Temperature 97.9 F 97.9 F Pulse Rate 90 96 H Respiratory 18 18 Rate Blood Pressure 132/74 139/99 Laboratory Tests 01/28/17 08:20 Urine Color Ltyellow Urine Appearance Clear Urine pH 5.0 Ur Specific [place] 1.013 Urine Protein Negative Urine Glucose (UA) Negative Urine Ketones Negative Urine Blood Negative Urine Nitrite Negative Urine Bilirubin Negative Urine Urobilinogen Negative P : Continue detox
[2017-01-28 15:15] LABS: URINE LEUK ESTERASE Negative (NEGATIVE)
[2017-01-28] MEDS ORDERED: QUEtiapine FUMARATE 100 MG TABLET (FP) PO ONE (21:45)
[2017-01-28] MEDS: THIAMINE HCL 100 MG TABLET (FP) PO SCH (22:45)
[2017-01-29] MEDS: chlordiazePOXIDE HCL 25 MG CAPSULE PO PRN ×3 (01:36→19:20)
[2017-01-29] MEDS: chlordiazePOXIDE HCL 25 MG CAPSULE PO SCH ×4 (05:25→22:23)
[2017-01-29] MEDS: cloNIDine HCL 0.1 MG TABLET PO PRN ×3 (05:27→18:08)
--- NOTE | 2017-01-29 07:59 | CONSULT ---
[facility] Psychiatric Consult - Data Date of interview: 01/29/17 Admission source: Self-referred Identifying data: Mr Maldonado is a 31 years old single male, employed in [employer], living with his girlfriend Substance Abuse History: Reports history of alcohol use. He started drinking alcohol at age 17, consumes 12x 24oz of beer daily. Last drank on 01/27/17 Medical History: Significant for Asthma, Alcohol-related seizure and history of orthosurgery for right shoulder dislocation in 2016. Smokes cigarettes 1.5ppd Psychiatric History: Patient's psychiatric history has not changed much since his last admission in Oct-Nov 2016. Reports seeing a psychiatrist in [facility] last year after his twin brother's . He was prescribed Seroquel 200 mg po HS for insomnia and Gabapentin 300 mg TID and 300 mg HS for anxiety. Claims he was prescribed Seroquel 200mg po HS and Gabapentin 300 mg po TID when he was here for detox in Oct-Nov 2016 Told headline writer that he was still taking these medications prior to this current admission. Denies history of previous psychiatric hospitalization or suicidal attempt. Reports feeling depressed and anxious and sleeping poorly Physical/Sexual Abuse/Trauma History: Denies history of verbal, physical or sexual abuse as wel as DV relationship Additional Comment: Reports history of one previous midemeanor arrestat age 18 Mental Status Exam - Mental Status Exam Alert and Oriented to: Time, Place, Person Cognitive Function: Fair Patient Appearance: Well Groomed Mood: Depressed, Anxious Affect: Appropriate Patient Behavior: Cooperative Speech Pattern: Clear Voice Loudness: Normal Thought Process: Intact, Goal Oriented Thought Disorder: Not Present Hallucinations: Denies Suicidal Ideation: Denies Homicidal Ideation: Denies Insight/Judgement: Poor Sleep: Poorly Appetite: Good Muscle strength/Tone: Normal Gait/Station: Normal Psychiatric Findings - Problem List ([place] 1, 2,3) (1) Substance induced mood disorder Current Visit: No Status: Acute (2) Substance-induced sleep disorder Current Visit: Yes Status: Acute (3) Alcohol dependence with uncomplicated intoxication Current Visit: No Status: Acute (4) Nicotine dependence Current Visit: No Status: Chronic Qualifiers: Nicotine product type: cigarettes Substance use status: in withdrawal Qualified Code(s): F17.213 - Nicotine dependence, cigarettes, with withdrawal (5) HTN (hypertension) Current Visit: Yes Status: Chronic Qualifiers: Hypertension type: essential hypertension Qualified Code(s): I10 - Essential (primary) hypertension (6) Asthma Current Visit: No Status: Chronic Qualifiers: Asthma severity: mild Asthma complication type: uncomplicated (7) GERD (gastroesophageal reflux disease) Current Visit: No Status: Chronic Qualifiers: Esophagitis presence: without esophagitis Qualified Code(s): K21.9 - Gastro -esophageal reflux disease without esophagitis (8) History of head injury Current Visit: No Status: Chronic - Initial Treatment Plan Initial Treatment Plan: 1) Continue Seroquel 200 mg po HS and Gabapentin 300 mg po BID. 2) Continue inpatient detoxification
--- NOTE | 2017-01-29 10:52 | PN ---
S CIWA - CIWA Score Nausea/Vomitin-Mild Nausea/No Vomiting Muscle Tremors: 4-Moderate,w/Arms Extend Anxiety: 4-Mod. Anxious/Guarded Agitation: 4-Moderately Restless Paroxysmal Sweats: 2 Orientation: 0-Oriented Tacttile Disturbances: 0-None Auditory Disturbances: 0-None Visual Disturbances: 0-None Headache: 0-None Present CIWA-Ar Total Score: 15 BHS Progress Note (SOAP) Subjective: sweating tremor nausea headache Objective: 01/29/17 10:54 Vital Signs Temperature 96.4 F L 01/29/17 09:47 Pulse Rate 67 01/29/17 09:47 Respiratory Rate 18 01/29/17 09:47 Blood Pressure 131/89 01/29/17 09:47 O2 Sat by Pulse Oximetry (%) Laboratory Last Values Urine Color Ltyellow 01/28/17 08:20 Urine Appearance Clear 01/28/17 08:20 Urine pH 5.0 (5.0-8.0) 01/28/17 08:20 Ur Specific [place] 1.013 (1.001-1.035) 01/28/17 08:20 Urine Protein Negative (NEGATIVE) 01/28/17 08:20 Urine Glucose (UA) Negative (NEGATIVE) 01/28/17 08:20 Urine Ketones Negative (NEGATIVE) 01/28/17 08:20 Urine Blood Negative (NEGATIVE) 01/28/17 08:20 Urine Nitrite Negative (NEGATIVE) 01/28/17 08:20 Urine Bilirubin Negative (NEGATIVE) 01/28/17 08:20 Urine Urobilinogen Negative mg/dL (0.2-1.0) 01/28/17 08:20 Ur Leukocyte Esterase Negative (NEGATIVE) 01/28/17 08:20 lab noted Assessment: 01/29/17 10:55 withdrawal sx Plan: continue detox
[2017-01-29 11:37] LABS: MCH 31.8 pg (25.7-33.7); MCHC 33.4 g/dl (32.0-35.9); MEAN CELL VOLUME 95.2 fl (80-96); MEAN PLT VOLUME 8.3 fl (7.5-11.1); PLATELET COUNT 223 K/MM3 (134-434); RDW 13.6 % (11.9-15.9); WHITE BLOOD COUNT 6.9 K/mm3 (4.0-10.0)
[2017-01-29] MEDS: PRENATAL VITAMINS W/ FOLIC ACID TABLET (FP) PO SCH (11:50)
[2017-01-29] MEDS: NICOTINE 21 MG/24 HOURS TOPICAL PATCH TD SCH (11:51)
[2017-01-29 11:58] LABS: ALBUMIN 4.2 g/dl (3.4-5.0); ANION GAP 8 (8-16); BILIRUBIN,TOTAL 0.9 mg/dL (0.2-1.0); CALCIUM 9.5 mg/dL (8.5-10.1); CO2 32 mmol/L (21-32); CREATININE 0.9 mg/dL (0.7-1.3); GLUCOSE,RANDOM 84 mg/dL (74-106); SGOT/AST 28 U/L (15-37); SGPT/ALT 41 U/L (12-78); TOT PROT 7.5 g/dl (6.4-8.2)
[2017-01-29 11:59] LABS: ALK PHOS 74 U/L (45-117)
[2017-01-29] MEDS ORDERED: chlordiazePOXIDE HCL 25 MG CAPSULE PO ONE (13:00)
[2017-01-29] MEDS: GABAPENTIN 300 MG CAPSULE (FP) PO SCH ×2 (13:29→22:23)
[2017-01-29] MEDS: THIAMINE HCL 100 MG TABLET (FP) PO SCH (22:23)
[2017-01-29] MEDS: QUEtiapine FUMARATE 200 MG TABLET PO SCH (22:23)
[2017-01-30] MEDS: cloNIDine HCL 0.1 MG TABLET PO PRN ×3 (01:25→19:12)
[2017-01-30] MEDS: chlordiazePOXIDE HCL 25 MG CAPSULE PO PRN ×2 (01:25→12:58)
[2017-01-30] MEDS: GABAPENTIN 300 MG CAPSULE (FP) PO SCH ×3 (05:47→22:14)
[2017-01-30] MEDS: chlordiazePOXIDE 5 MG CAPSULE PO SCH ×4 (05:47→22:14)
[2017-01-30] MEDS: NICOTINE 21 MG/24 HOURS TOPICAL PATCH TD SCH (10:51)
[2017-01-30] MEDS: PRENATAL VITAMINS W/ FOLIC ACID TABLET (FP) PO SCH (10:52)
[2017-01-30] MEDS ORDERED: CYCLOBENZAPRINE HCL 10 MG TABLET (FP) PO ONE (10:55)
[2017-01-30] MEDS ORDERED: IBUPROFEN 600 MG TABLET (FP) PO PRN (10:56)
--- NOTE | 2017-01-30 11:55 | PN ---
[facility] CIWA - CIWA Score Nausea/Vomitin-No Nausea/No Vomiting Muscle Tremors: 4-Moderate,w/Arms Extend Anxiety: 3 Agitation: 3 Paroxysmal Sweats: 2 Orientation: 0-Oriented Tacttile Disturbances: 0-None Auditory Disturbances: 0-None Visual Disturbances: 0-None Headache: 0-None Present CIWA-Ar Total Score: 12 S Progress Note (SOAP) Subjective: agitation anxiety sweats shakes muscle cramp to back Objective: 01/30/17 11:54 Vital Signs Temperature 96.3 F L 01/30/17 09:35 Pulse Rate 78 01/30/17 09:35 Respiratory Rate 18 01/30/17 09:35 Blood Pressure 134/96 01/30/17 09:35 O2 Sat by Pulse Oximetry (%) Laboratory Tests 01/28/17 01/29/17 01/29/17 08:20 08:45 08:45 WBC 6.9 RBC 4.94 Hgb 15.7 Hct 47.0 MCV 95.2 MCH 31.8 MCHC 33.4 RDW 13.6 Plt Count 223 MPV 8.3 Sodium 141 Potassium 4.7 D Chloride 101 Carbon Dioxide 32 D Anion Gap 8 BUN 9 Creatinine 0.9 Creat Clearance w eGFR > 60 Random Glucose 84 Calcium 9.5 Total Bilirubin 0.9 D AST 28 ALT 41 D Alkaline Phosphatase 74 Total Protein 7.5 Albumin 4.2 Urine Color Ltyellow Urine Appearance Clear Urine pH 5.0 Ur Specific [place] 1.013 Urine Protein Negative Urine Glucose (UA) Negative Urine Ketones Negative Urine Blood Negative Urine Nitrite Negative Urine Bilirubin Negative Urine Urobilinogen Negative Ur Leukocyte Esterase Negative RPR Titer 01/29/17 08:45 WBC RBC Hgb Hct MCV MCH MCHC RDW Plt Count MPV Sodium Potassium Chloride Carbon Dioxide Anion Gap BUN Creatinine Creat Clearance w eGFR Random Glucose Calcium Total Bilirubin AST ALT Alkaline Phosphatase Total Protein Albumin Urine Color Urine Appearance Urine pH Ur Specific [place] Urine Protein Urine Glucose (UA) Urine Ketones Urine Blood Urine Nitrite Urine Bilirubin Urine Urobilinogen Ur Leukocyte Esterase RPR Titer Nonreactive aaox3 ambulating no acute distress Assessment: 01/30/17 11:55 withdrawal sx Plan: continue detox increase fluids flexiril prn lidocaine patch motrin 600mg prn
[2017-01-30] MEDS ORDERED: LIDOCAINE 5% TOPICAL PATCH TP ONE (12:45)
[2017-01-30] MEDS ORDERED: LIDOCAINE PATCH REMOVAL MC SCH (22:00)
[2017-01-30] MEDS: THIAMINE HCL 100 MG TABLET (FP) PO SCH (22:14)
[2017-01-30] MEDS: CYCLOBENZAPRINE HCL 10 MG TABLET (FP) PO PRN (22:14)
[2017-01-30] MEDS: QUEtiapine FUMARATE 200 MG TABLET PO SCH (22:14)
[2017-01-31] MEDS ORDERED: chlordiazePOXIDE HCL 10 MG CAPSULE PO SCH (05:00)
[2017-01-31] MEDS: CYCLOBENZAPRINE HCL 10 MG TABLET (FP) PO PRN (05:52)
[2017-01-31] MEDS: GABAPENTIN 300 MG CAPSULE (FP) PO SCH (06:49)
[2017-01-31] MEDS: cloNIDine HCL 0.1 MG TABLET PO PRN (08:20)
--- NOTE | 2017-01-31 08:51 | DS ---
[facility] Detox Discharge Summary Admission Date: 01/28/17 Discharge Date: 01/31/17 - History Present History: Alcohol Dependence, Cannabis Dependence, Cocaine Dependence - Physical Exam Results Vital Signs: Vital Signs Temperature 97.2 F L 01/31/17 06:07 Pulse Rate 68 01/31/17 06:07 Respiratory Rate 18 01/31/17 06:07 Blood Pressure 129/63 01/31/17 06:07 O2 Sat by Pulse Oximetry (%) - Treatment Hospital Course: Detox Protocol Followed, Detoxed Safely, Responded well, Discharged Condition Good, Rehab Referral Accepted - Medication Discharge Medications: Ambulatory Orders Albuterol Sulfate Inhaler - [Ventolin HFA Inhaler -] 2 puff IH Q4H PRN #1 inhaler 11/30/16 Gabapentin 300 mg PO TID #90 capsule 01/29/17 Quetiapine Fumarate [Seroquel -] 200 mg PO HS #30 tab 01/29/17 Lidocaine 5% Patch [Lidoderm -] 1 patch TP DAILY #30 patch 01/31/17 - Diagnosis (1) Substance-induced sleep disorder Current Visit: Yes Status: Chronic (2) Alcohol related seizure Current Visit: Yes Status: Suspected (3) HTN (hypertension) Current Visit: Yes Status: Chronic Qualifiers: Hypertension type: essential hypertension Qualified Code(s): I10 - Essential (primary) hypertension (4) Alcohol dependence with uncomplicated intoxication Current Visit: Yes Status: Chronic (5) Alcohol-induced mood disorder Current Visit: No Status: Acute (6) Cellulitis Current Visit: No Status: Acute Qualifiers: Site of cellulitis: unspecified site Qualified Code(s): L03.90 - Cellulitis , unspecified (7) Cocaine dependence Current Visit: No Status: Acute Qualifiers: Substance use status: uncomplicated Qualified Code(s): F14.20 - Cocaine dependence, uncomplicated (8) Depressed affect Current Visit: No Status: Acute (9) Drug-induced mood disorder Current Visit: No Status: Acute (10) Substance induced mood disorder Current Visit: No Status: Acute (11) Substance-induced sleep disorder Current Visit: No Status: Acute (12) Alcohol-induced sleep disorder Current Visit: No Status: Chronic (13) Anxiety and depression Current Visit: No Status: Chronic (14) Asthma Current Visit: No Status: Chronic Qualifiers: Asthma severity: mild Asthma complication type: uncomplicated (15) Depressive disorder Current Visit: No Status: Chronic (16) GERD (gastroesophageal reflux disease) Current Visit: No Status: Chronic Qualifiers: Esophagitis presence: without esophagitis Qualified Code(s): K21.9 - Gastro -esophageal reflux disease without esophagitis (17) History of head injury Current Visit: No Status: Chronic (18) History of seizure Current Visit: No Status: Chronic (19) Insomnia Current Visit: No Status: Chronic Qualifiers: Insomnia type: unspecified Qualified Code(s): G47.00 - Insomnia, unspecified (20) Marijuana dependence Current Visit: No Status: Chronic (21) Nicotine dependence Current Visit: No Status: Chronic Qualifiers: Nicotine product type: cigarettes Substance use status: in withdrawal Qualified Code(s): F17.213 - Nicotine dependence, cigarettes, with withdrawal (22) Seizure Current Visit: No Status: Chronic (23) Alcohol dependence with uncomplicated withdrawal Current Visit: No Status: Suspected (24) Depression Current Visit: No Status: Suspected Qualifiers: Depression Type: unspecified Qualified Code(s): F32.9 - Major depressive disorder, single episode, unspecified (25) Syncope Current Visit: No Status: Suspected - AMA Did Patient Leave Against Medical Advice: No
[2017-01-31] MEDS ORDERED: LIDOCAINE 5% TOPICAL PATCH TP ONE (09:00)
[2017-01-31 09:28] VITALS: BP 128/85; PULSE 84; TEMP 96.4
[2017-01-31] MEDS ORDERED: LIDOCAINE 5% TOPICAL PATCH TP SCH (10:00)
[2017-01-31] MEDS ORDERED: LIDOCAINE PATCH REMOVAL MC SCH (22:00)
== END 2017-01-31 09:02 | disposition home or self-care (01) | DRG 775 ==
LOC: YASAS 23:57 → Y6N 01-28 00:53
PROVIDERS: ADMIT Internal Medicine; ATTEND Internal Medicine
PROC: HZ2ZZZZ Detoxification Services for Substance Abuse Treatment (ICD-10-PCS; principal; 2017-01-28)
DX: F10.230 Alcohol dependence with withdrawal, uncomplicated (principal); F12.20 Cannabis dependence, uncomplicated; F17.210 Nicotine dependence, cigarettes, uncomplicated; F32.9 Major depressive disorder, single episode, unspecified; F10.94 Alcohol use, unspecified with alcohol-induced mood disorder; F10.282 Alcohol dependence with alcohol-induced sleep disorder; K21.9 Gastro-esophageal reflux disease without esophagitis; Z86.69 Personal history of other diseases of the nervous system and sense organs
CPT/HCPCS: 36415; 80053; 81003; 85027; 86593; 93005; 93010

== ENCOUNTER 2019-02-20 23:47 | Inpatient (IN) | payer OTHER ==
[2019-02-21 00:32] VITALS: BMI 27.8
--- NOTE | 2019-02-21 01:04 | HP ---
CIWA Score Nausea/Vomitin (vomiting x 1) Muscle Tremors: 4-Moderate,w/Arms Extend Anxiety: 3 Agitation: 2 Paroxysmal Sweats: 2 Orientation: 0-Oriented Tacttile Disturbances: 0-None Auditory Disturbances: 0-None Visual Disturbances: 0-None Headache: 4-Moderately Severe CIWA-Ar Total Score: 18 - Admission Criteria OASAS Guidelines: Admission for Medically Managed Detox: Requires at least one of the followin. CIWA greater than 12 2. Seizures within the past 24 hours 3. Delirium tremens within the past 24 hours 4. Hallucinations within the past 24 hours 5. Acute intervention needed for co occurring medical disorder 6. Acute intervention needed for co occurring psychiatric disorder 7. Severe withdrawal that cannot be handled at a lower level of care (continued vomiting, continued diarrhea, abnormal vital signs) requiring intravenous medication and/or fluids 8. Admitting History and Physical - Smoking History Smoking history: Current every day smoker Have you smoked in the past 12 months: Yes Aproximately how many cigarettes per day: 30 - Alcohol/Substance Use Hx Alcohol Use: Yes Admission ROS [facility] Chief Complaint: Alcohol withdrawal symptoms Allergies/Adverse Reactions: Allergies Allergy/AdvReac Type Severity Reaction Status Date / Time ketamine Allergy Severe disoriented Verified 10/24/16 01:13 and confused acetaminophen [From Tylenol] Allergy Intermediate Nausea Verified 10/24/16 01:13 History of Present Illness: 33 years old male with a long history of alcohol dependence (since age 13 years ) is seeking admission to detox. He reports that his last admission was on January 28, 2017 but his mom on February 15, 2019 and he relapsed. He reports medical history of hypertension, asthma, GERD and seizures. He reports psych. history of mood disorder, anxiety and depression. He denies suicidal ideation at this time. He reports blackouts last episode was 2 nights ago. Patient reports that he is not compliant with medications and has not seen his psychiatrist or primary physician for 2 years. He reports that his last seizure activity was 2 years ago. - Ebola screening Have you traveled outside of the country in the last 21 days: No (N) Have you had contact with anyone from an Ebola affected area: No Do you have a fever: No - Review of Systems Constitutional: Chills, Malaise, Night Sweats EENT: reports: Nose Congestion Respiratory: reports: Wheezing Cardiac: reports: No Symptoms Reported GI: reports: Diarrhea (x 3), Nausea, Poor Appetite, Poor Fluid Intake, Vomiting , Abdominal cramping : reports: No Symptoms Reported Musculoskeletal: reports: No Symptoms Reported Integumentary: reports: Dryness, Flushing Neuro: reports: Headache, Tremors Endocrine: reports: No Symptoms Reported Hematology: reports: No Symptoms Reported Psychiatric: reports: Mood/Affect Appropiate, Orientated x3, Anxious, Depressed Other Systems: Reviewed and Negative Patient History - Patient Medical History Hx Anemia: No Hx Asthma: Yes (Albuterol) Hx Chronic Obstructive Pulmonary Disease (COPD): No Hx Cancer: No Hx Cardiac Disorders: No Hx Congestive Heart Failure: No Hx Hypertension: Yes (Not on medication) Hx Hypercholesterolemia: No Hx Pacemaker: No HX Cerebrovascular Accident: No Hx Seizures: Yes (Not on medication) Hx Dementia: No Hx Diabetes: No Hx Gastrointestinal Disorders: Yes (GERD) Hx Liver Disease: No Hx Genitourinary Disorders: No Hx Sexually Transmitted Disorders: No Hx Renal Disease (ESRD): No Hx Thyroid Disease: No Hx Human Immunodeficiency Virus (HIV): No (Negative 2003) Hx Hepatitis C: No Hx Depression: Yes (Not on medication) Hx Suicide Attempt: No (Denies suicidal ideation at this time) Hx Bipolar Disorder: No Hx Schizophrenia: No Other Medical History: Anxiety, mood disorder- Not on medication - Patient Surgical History Past Surgical History: Yes Hx Neurologic Surgery: No Hx Cataract Extraction: No Hx Cardiac Surgery: No Hx Lung Surgery: No Hx Breast Surgery: No Hx Breast Biopsy: No Hx Abdominal Surgery: No Hx Appendectomy: No Hx Cholecystectomy: No Hx Genitourinary Surgery: No Hx Section: No Hx Orthopedic Surgery: Yes (RIGHT SHOULDER(DISLOCATED) 06/2015) Anesthesia Reaction: No - PPD History Previous Implant?: Yes Documented Results: Negative w/proof Implanted On Prior R Admission?: Yes Date: 01/30/17 Results: 0 mm PPD to be Administered?: Yes - Reproductive History Patient is a Female of Child Bearing Age (11 -55 yrs old): No (male) - Smoking Cessation Smoking history: Current every day smoker Have you smoked in the past 12 months: Yes Aproximately how many cigarettes per day: 30 Cigars Per Day: 0 Hx Chewing Tobacco Use: No Initiated information on smoking cessation: Yes 'Breaking Loose' booklet given: 02/21/19 - Substance & Tx. History Hx Alcohol Use: Yes Hx Substance Use: Yes Substance Use Type: Alcohol, Marijuana Hx Substance Use Treatment: Yes ([facility]) Admission Physical Exam S - Vital Signs Vital Signs: Vital Signs - 24 hr 02/21/19 00:28 Temperature 98.4 F Pulse Rate 103 H Respiratory 18 Rate Blood Pressure 159/104 H - Physical General Appearance: Yes: Moderate Distress, Tremorous, Irritable, Sweating, Anxious HEENTM: Yes: EOMI, Normal ENT Inspection, Normocephalic, Normal Voice, DAE Respiratory: Yes: Lungs Clear, Normal Breath Sounds, No Respiratory Distress Neck: Yes: Supple Breast: Yes: Breast Exam Deferred Cardiology: Yes: Regular Rhythm, Regular Rate Abdominal: Yes: Normal Bowel Sounds, Soft Genitourinary: Yes: Within Normal Limits Back: Yes: Normal Inspection Musculoskeletal: Yes: Within Normal Limits Extremities: Yes: Tremors Neurological: Yes: Within Normal Limits, Alert, Motor Strength 5/5, Normal Mood/ Affect Integumentary: Yes: Warm Lymphatic: Yes: Within Normal Limits - Diagnostic (1) Alcohol dependence with uncomplicated intoxication Current Visit: Yes Status: Acute (2) Asthma Current Visit: Yes Status: Chronic Qualifiers: Asthma severity: moderate Asthma persistence: persistent Asthma complication type: with acute exacerbation Qualified Code(s): J45.41 - Moderate persistent asthma with (acute) exacerbation (3) GERD (gastroesophageal reflux disease) Current Visit: Yes Status: Chronic Qualifiers: Esophagitis presence: without esophagitis Qualified Code(s): K21.9 - Gastro -esophageal reflux disease without esophagitis (4) HTN (hypertension) Current Visit: Yes Status: Chronic Qualifiers: Hypertension type: essential hypertension Qualified Code(s): I10 - Essential (primary) hypertension (5) Marijuana dependence Current Visit: Yes Status: Chronic (6) Nicotine dependence Current Visit: Yes Status: Chronic Qualifiers: Nicotine product type: cigarettes Substance use status: in withdrawal Qualified Code(s): F17.213 - Nicotine dependence, cigarettes, with withdrawal (7) Seizure Current Visit: Yes Status: Chronic (8) Depression Current Visit: Yes Status: Suspected Qualifiers: Depression Type: unspecified Qualified Code(s): F32.9 - Major depressive disorder, single episode, unspecified Comment: kylieo twin brother annuverary Cleared for Admission S - Detox or Rehab [facility] Level of Care: Medically Managed Detox Regimen/Protocol: Librium Breathalyzer - Breathalyzer Breathalyzer: 0.244 Urine Drug Screen - Test Device Lot number: [id number] Expiration date: 09/26/20 - Control Is test valid?: Yes - Results Drug screen NEGATIVE: No Urine drug screen results: THC-Marijuana Inpatient Rehab Admission - Rehab Decision to Admit Inpatient rehab admission?: No
[2019-02-21] MEDS ORDERED: MELATONIN 5 MG TABLETS PO PRN (01:43)
[2019-02-21] MEDS ORDERED: chlordiazePOXIDE HCL 25 MG CAPSULE PO ONE (01:43)
[2019-02-21] MEDS ORDERED: MAG HYDROX/AL HYDROX/SIMETH 30 ML UNIT-DOSE CUP PO PRN (01:43)
[2019-02-21] MEDS ORDERED: NICOTINE POLACRILEX 2 MG GUM BUC PRN (01:43)
[2019-02-21] MEDS ORDERED: hydrOXYzine PAMOATE 25 MG CAPSULE (FP) PO PRN (01:43)
[2019-02-21] MEDS ORDERED: MAGNESIUM HYDROX 2400MG/30ML ORAL SUSPENSION 30 ML CUP PO PRN (01:43)
[2019-02-21] MEDS ORDERED: MAGNESIUM CITRATE 300 ML BOTTLE PO PRN (01:43)
[2019-02-21] MEDS ORDERED: ACETAMINOPHEN 325 MG TABLET (FP) PO PRN ×2 (01:43)
[2019-02-21] MEDS ORDERED: cloNIDine HCL 0.1 MG TABLET PO ONE ×2 (03:02→22:24)
[2019-02-21] MEDS: ALBUTEROL SO4 8 GM HFA INHALER IH PRN ×2 (03:23→17:48)
[2019-02-21] MEDS: chlordiazePOXIDE HCL 25 MG CAPSULE PO SCH ×4 (05:59→22:20)
--- NOTE | 2019-02-21 10:10 | CONSULT ---
[facility] Psychiatric Consult - Data Date of interview: 02/21/19 Admission source: Self-referred Identifying data: Mr Maldonado is a 33 years old single male, unemployed with no source of income, living with his girlfriend seeking detox treatment for alcohol and cannabis Substance Abuse History: Reports history of alcohol and marijuana use. Refer to addiction counselor's summary for further information Medical History: Significant for bronchial asthma, history of alcohol related seizure andorthosurgery for right shoulder dislocation in 2016. Smokes cigarettes 1.5ppd Psychiatric History: Patient is known to verse writer from a previous encounter during an admission to this facility in January 2017. Historical narrative remains consistent. He reports that he started seeing a psychiatrist in [facility] in 2015 after his twin brother's . He was prescribed Seroquel 200 mg po HS for insomnia and Gabapentin 300 mg TID and 300 mg HS for anxiety. Claims he was taking these medications on & off till his admission to this facility where he was seen by verse writer on 01/29/19. Claims that since discharge from this facility on 01/31/19 he has not sought outpatient psychiatric treatment and has been off medications. Denies history of previous psychiatric hospitalization or suicidal attempt. Reports feeling depressed and anxious and sleeping poorly. Requests to be ordered Seroquel for insomnia Physical/Sexual Abuse/Trauma History: Denies history of verbal, physical or sexual abuse as wel as DV relationship Additional Comment: Reports history of one previous midemeanor arrestat age 18 Mental Status Exam - Mental Status Exam Alert and Oriented to: Time, Place Cognitive Function: Fair Patient Appearance: Disheveled Mood: Depressed, Anxious Affect: Appropriate Patient Behavior: Cooperative Speech Pattern: Clear Voice Loudness: Normal Thought Process: Intact, Goal Oriented Hallucinations: Denies Suicidal Ideation: Denies Homicidal Ideation: Denies Insight/Judgement: Poor Sleep: Poorly Appetite: Fair Muscle strength/Tone: Normal Gait/Station: Normal Psychiatric Findings - Problem List ([place] 1, 2,3) (1) Substance induced mood disorder Current Visit: No Status: Acute (2) Substance-induced sleep disorder Current Visit: No Status: Acute (3) Alcohol dependence with uncomplicated intoxication Current Visit: Yes Status: Acute (4) Cannabis dependence Current Visit: Yes Status: Acute (5) Nicotine dependence Current Visit: Yes Status: Chronic Qualifiers: Nicotine product type: cigarettes Substance use status: in withdrawal Qualified Code(s): F17.213 - Nicotine dependence, cigarettes, with withdrawal (6) Asthma Current Visit: Yes Status: Chronic Qualifiers: Asthma severity: moderate Asthma persistence: persistent Asthma complication type: with acute exacerbation Qualified Code(s): J45.41 - Moderate persistent asthma with (acute) exacerbation (7) HTN (hypertension) Current Visit: Yes Status: Chronic Qualifiers: Hypertension type: essential hypertension Qualified Code(s): I10 - Essential (primary) hypertension (8) Alcohol related seizure Current Visit: No Status: Resolved (9) GERD (gastroesophageal reflux disease) Current Visit: Yes Status: Chronic - Initial Treatment Plan Initial Treatment Plan: 1) Start Seroquel 100 mg po HS. 2) Continue inpatient detoxification
--- NOTE | 2019-02-21 10:31 | EKG ---
Test Reason : Blood Pressure : / mmHG Vent. Rate : 095 BPM Atrial Rate : 095 BPM P-R Int : 146 ms QRS Dur : 084 ms QT Int : 344 ms P-R-T Axes : 071 053 067 degrees QTc Int : 432 ms NORMAL SINUS RHYTHM NORMAL ECG WHEN COMPARED WITH ECG OF 28-JAN-2017 01:26, NO SIGNIFICANT CHANGE WAS FOUND Confirmed by CORAZON MINOR MD ([id number]) on 02/21/2019 10:31:09 AM Referred By: DEONNA Confirmed By:CORAZON MINOR MD
[2019-02-21] MEDS: PRENATAL VITAMINS W/ FOLIC ACID TABLET (FP) PO SCH (10:40)
[2019-02-21] MEDS: NICOTINE 21 MG/24 HOURS TOPICAL PATCH TD SCH (10:40)
--- NOTE | 2019-02-21 12:12 | PN ---
S CIWA - CIWA Score Nausea/Vomitin-No Nausea/No Vomiting Muscle Tremors: 3 Anxiety: 3 Agitation: 3 Paroxysmal Sweats: 3 Orientation: 0-Oriented Tacttile Disturbances: 0-None Auditory Disturbances: 0-None Visual Disturbances: 0-None Headache: 0-None Present CIWA-Ar Total Score: 12 [facility] Progress Note (SOAP) Subjective: sweats shakes interrupted sleep body aches headache Objective: 02/21/19 12:11 Vital Signs Temperature 98.0 F 02/21/19 09:17 Pulse Rate 90 02/21/19 09:17 Respiratory Rate 18 02/21/19 09:17 Blood Pressure 155/93 02/21/19 09:17 O2 Sat by Pulse Oximetry (%) labs pending aaox3 ambulating no acute distress Assessment: 02/21/19 12:11 withdrawals Plan: continue detox increase fluids tylenol/motrin prn
--- NOTE | 2019-02-21 15:15 | EKG ---
Test Reason : Blood Pressure : / mmHG Vent. Rate : 082 BPM Atrial Rate : 082 BPM P-R Int : 130 ms QRS Dur : 092 ms QT Int : 370 ms P-R-T Axes : 069 049 056 degrees QTc Int : 432 ms NORMAL SINUS RHYTHM NORMAL ECG WHEN COMPARED WITH ECG OF 21-FEB-2019 02:05, NO SIGNIFICANT CHANGE WAS FOUND Confirmed by CORAZON MINOR MD ([id number]) on 02/21/2019 3:15:02 PM Referred By: Confirmed By:CORAZON MINOR MD
[2019-02-21] MEDS: P-EPHED 60MG/TRIPROLIDI 2.5MG TABLET PO PRN (18:06)
[2019-02-21] MEDS: chlordiazePOXIDE HCL 25 MG CAPSULE PO PRN (19:13)
[2019-02-21] MEDS: THIAMINE HCL 100 MG TABLET (FP) PO SCH (22:20)
[2019-02-21] MEDS: QUEtiapine FUMARATE 100 MG TABLET (FP) PO SCH (22:20)
[2019-02-21] MEDS: METHOCARBAMOL 500 MG TABLET PO PRN (22:20)
[2019-02-22] MEDS: chlordiazePOXIDE HCL 25 MG CAPSULE PO PRN ×2 (02:12→13:47)
[2019-02-22] MEDS: chlordiazePOXIDE HCL 25 MG CAPSULE PO SCH ×4 (05:27→22:13)
[2019-02-22] MEDS: NICOTINE 21 MG/24 HOURS TOPICAL PATCH TD SCH (10:16)
[2019-02-22] MEDS: PRENATAL VITAMINS W/ FOLIC ACID TABLET (FP) PO SCH (10:16)
[2019-02-22] MEDS: P-EPHED 60MG/TRIPROLIDI 2.5MG TABLET PO PRN (10:17)
[2019-02-22] MEDS: MENTHOL/PHENOL 1 EACH UD MM PRN (10:17)
[2019-02-22 10:25] LABS: HEMATOCRIT 47.3 % (35.4-49); HEMOGLOBIN 15.9 GM/dL (11.7-16.9); MCH 32.3 pg (25.7-33.7); MCHC 33.6 g/dl (32.0-35.9); MEAN PLT VOLUME 8.5 fl (7.5-11.1); PLATELET COUNT 219 K/MM3 (134-434); RBC 4.93 M/mm3 (4.00-5.60); WHITE BLOOD COUNT 6.4 K/mm3 (4.0-10.0)
[2019-02-22 10:32] LABS: ALBUMIN 3.6 g/dl (3.4-5.0); CREATININE 0.9 mg/dL (0.55-1.3); POTASSIUM 3.7 mmol/L (3.5-5.1)
--- NOTE | 2019-02-22 11:40 | PN ---
S CIWA - CIWA Score Nausea/Vomitin-No Nausea/No Vomiting Muscle Tremors: 3 Anxiety: 2 Agitation: 2 Paroxysmal Sweats: 2 Orientation: 0-Oriented Tacttile Disturbances: 0-None Auditory Disturbances: 0-None Visual Disturbances: 0-None Headache: 0-None Present CIWA-Ar Total Score: 9 B[facility] Progress Note (SOAP) Subjective: chills sweats body ache chest congestion Objective: 02/22/19 11:38 Vital Signs Temperature 97.7 F 02/22/19 09:27 Pulse Rate 85 02/22/19 09:27 Respiratory Rate 18 02/22/19 09:27 Blood Pressure 149/95 02/22/19 09:27 O2 Sat by Pulse Oximetry (%) Laboratory Tests 02/22/19 02/22/19 02/22/19 07:40 07:40 07:40 WBC 6.4 RBC 4.93 Hgb 15.9 Hct 47.3 MCV 96.0 MCH 32.3 MCHC 33.6 RDW 13.0 Plt Count 219 MPV 8.5 Sodium 139 Potassium 3.7 Chloride 102 Carbon Dioxide 30 Anion Gap 7 L BUN 11.0 Creatinine 0.9 Est GFR (CKD-EPI)AfAm 128.70 Est GFR (CKD-EPI)NonAf 111.04 Random Glucose 94 Calcium 9.0 Total Bilirubin 1.0 AST 68 H ALT 102 H Alkaline Phosphatase 78 Total Protein 7.0 Albumin 3.6 RPR Titer Nonreactive aaox3 lying in bed no acute distress Assessment: 02/22/19 11:39 withdrawals lungs assessed; some congestion noted on auscultation. no SOB noted will order musinex bid Plan: continue detox increase fluids musinex bid
[2019-02-22] MEDS: BISMUTH SUBSALICYLATE 524 MG/30 ML UD PO PRN (12:08)
[2019-02-22] MEDS: guaiFENesin 600 MG TABLET.ER (FP) PO SCH ×2 (13:39→22:13)
--- NOTE | 2019-02-22 14:09 | PN ---
S Progress Note Note: Reports feeling anxious with difficulty to sleep despite taking Vistaril 25 mg po Q 6hrs prn and Seroquel 100 mg/hs. Discussed with patient about increasing Vistaril to 50 mg po Q 4hrs prn for anxiety
[2019-02-22] MEDS: QUEtiapine FUMARATE 100 MG TABLET (FP) PO SCH (22:13)
[2019-02-22] MEDS: THIAMINE HCL 100 MG TABLET (FP) PO SCH (22:13)
[2019-02-22] MEDS: IBUPROFEN 400 MG TABLET (FP) PO PRN (22:16)
[2019-02-23] MEDS: chlordiazePOXIDE HCL 10 MG CAPSULE PO PRN ×2 (00:47→14:00)
[2019-02-23] MEDS: chlordiazePOXIDE HCL 10 MG CAPSULE PO SCH ×4 (05:40→22:15)
[2019-02-23] MEDS: NICOTINE 21 MG/24 HOURS TOPICAL PATCH TD SCH (10:16)
[2019-02-23] MEDS: PRENATAL VITAMINS W/ FOLIC ACID TABLET (FP) PO SCH (10:16)
[2019-02-23] MEDS: guaiFENesin 600 MG TABLET.ER (FP) PO SCH ×2 (10:16→22:16)
[2019-02-23] MEDS: BISMUTH SUBSALICYLATE 524 MG/30 ML UD PO PRN (11:35)
[2019-02-23] MEDS ORDERED: LOPERAMIDE HCL 2 MG CAPSULE PO PRN (12:06)
[2019-02-23] MEDS: METHOCARBAMOL 500 MG TABLET PO PRN ×2 (14:00→22:16)
[2019-02-23] MEDS: hydrOXYzine PAMOATE 50 MG CAPSULE (FP) PO PRN ×2 (14:00→17:52)
--- NOTE | 2019-02-23 14:42 | PN ---
[facility] CIWA - CIWA Score Nausea/Vomitin (Diarrhea.) Muscle Tremors: None Anxiety: 3 Agitation: 2 Paroxysmal Sweats: 2 Orientation: 0-Oriented Tacttile Disturbances: 0-None Auditory Disturbances: 0-None Visual Disturbances: 1-Very Mild Sensitivity Headache: 0-None Present CIWA-Ar Total Score: 10 S Progress Note (SOAP) Subjective: Diarrhea (severe), Sweating, Restless. Objective: PATIENT A & O X 3, OBSERVED AMBULATING ON DETOX UNIT UNASSISTED. IN NO ACUTE DISTRESS. 02/23/19 14:39 Vital Signs Temperature 97.6 F 02/23/19 13:28 Pulse Rate 85 02/23/19 13:28 Respiratory Rate 18 02/23/19 13:28 Blood Pressure 131/95 02/23/19 13:28 O2 Sat by Pulse Oximetry (%) Laboratory Tests 02/22/19 02/22/19 02/22/19 07:40 07:40 07:40 WBC 6.4 RBC 4.93 Hgb 15.9 Hct 47.3 MCV 96.0 MCH 32.3 MCHC 33.6 RDW 13.0 Plt Count 219 MPV 8.5 Sodium 139 Potassium 3.7 Chloride 102 Carbon Dioxide 30 Anion Gap 7 L BUN 11.0 Creatinine 0.9 Est GFR (CKD-EPI)AfAm 128.70 Est GFR (CKD-EPI)NonAf 111.04 Random Glucose 94 Calcium 9.0 Total Bilirubin 1.0 AST 68 H ALT 102 H Alkaline Phosphatase 78 Total Protein 7.0 Albumin 3.6 RPR Titer Nonreactive LABS NOTED. Assessment: 02/23/19 14:40 WITHDRAWAL SYMPTOMS. ELEVATED AST LEVEL. ELEVATED ALT LEVEL. ELEVATED BLOOD PRESSURE LEVEL (PATIENT DENIES PREVIOUS KNOWN HISTORY OF HYPERTENSION). 02/23/19 14:41 Plan: CONTINUE DETOX. INCREASE DAILY ORAL WATER INTAKE. CONTINUE TO MONITOR BLOOD PRESSURE. PATIENT REPORTS LIMITED EFFECT FROM PRN PEPTO-BISMOL FOR RELIEF OF DIARRHEA. AT PATIENT'S REQUEST, WILL CHANGE TO PRN ORAL IMMODIUM.
[2019-02-23 17:17] LABS: URINE APPEARANCE CLEAR; URINE BILIRUBIN NEGATIVE (NEGATIVE); URINE COLOR YELLOW; URINE GLUCOSE (UA) NEGATIVE (NEGATIVE); URINE KETONE NEGATIVE (NEGATIVE); URINE LEUK ESTERASE NEGATIVE (NEGATIVE); URINE NITRITE NEGATIVE (NEGATIVE); URINE PROTEIN NEGATIVE (NEGATIVE); URINE UROBILINOGEN 0.2 mg/dL (0.2-1.0)
[2019-02-23] MEDS: THIAMINE HCL 100 MG TABLET (FP) PO SCH (22:15)
[2019-02-23] MEDS: QUEtiapine FUMARATE 100 MG TABLET (FP) PO SCH (22:16)
[2019-02-23] MEDS: IBUPROFEN 400 MG TABLET (FP) PO PRN (22:18)
[2019-02-24] MEDS: hydrOXYzine PAMOATE 50 MG CAPSULE (FP) PO PRN ×2 (01:16→20:16)
[2019-02-24] MEDS: chlordiazePOXIDE HCL 10 MG CAPSULE PO SCH ×2 (05:25→18:13)
[2019-02-24] MEDS: PRENATAL VITAMINS W/ FOLIC ACID TABLET (FP) PO SCH (10:06)
[2019-02-24] MEDS: MENTHOL/PHENOL 1 EACH UD MM PRN ×3 (10:07→20:56)
[2019-02-24] MEDS: guaiFENesin 600 MG TABLET.ER (FP) PO SCH ×2 (10:07→22:03)
[2019-02-24] MEDS: NICOTINE 21 MG/24 HOURS TOPICAL PATCH TD SCH (10:07)
--- NOTE | 2019-02-24 15:34 | DS ---
[facility] Detox Discharge Summary Admission Date: 02/21/19 Discharge Date: 02/24/19 - History Present History: Alcohol Dependence, Cannabis Dependence Additional Comments: Patient requested to be discharged tonight stating that his girlfriend will pick him up tonight at 11 pm. As per patient, he is feeling much better and is ready to be discharged. Patient instructed to follow up with his PCP within 1 week. Patient denies any withdrawal sxs and is stable for admission. Pertinent Past History: Alcohol dependence Cannabis dependence Asthma HTN GERD Seizure disorder Depression Nicotine dependence - Physical Exam Results Vital Signs: Vital Signs Temperature 97.8 F 02/24/19 13:40 Pulse Rate 92 H 02/24/19 13:40 Respiratory Rate 18 02/24/19 13:40 Blood Pressure 142/99 02/24/19 13:40 O2 Sat by Pulse Oximetry (%) Pertinent Admission Physical Exam Findings: Withdrawal sxs Laboratory Tests 02/22/19 02/22/19 02/22/19 07:40 07:40 07:40 WBC 6.4 RBC 4.93 Hgb 15.9 Hct 47.3 MCV 96.0 MCH 32.3 MCHC 33.6 RDW 13.0 Plt Count 219 MPV 8.5 Sodium 139 Potassium 3.7 Chloride 102 Carbon Dioxide 30 Anion Gap 7 L BUN 11.0 Creatinine 0.9 Est GFR (CKD-EPI)AfAm 128.70 Est GFR (CKD-EPI)NonAf 111.04 Random Glucose 94 Calcium 9.0 Total Bilirubin 1.0 AST 68 H ALT 102 H Alkaline Phosphatase 78 Total Protein 7.0 Albumin 3.6 Urine Color Urine Appearance Urine pH Ur Specific [place] Urine Protein Urine Glucose (UA) Urine Ketones Urine Blood Urine Nitrite Urine Bilirubin Urine Urobilinogen Ur Leukocyte Esterase RPR Titer Nonreactive 02/23/19 13:33 WBC RBC Hgb Hct MCV MCH MCHC RDW Plt Count MPV Sodium Potassium Chloride Carbon Dioxide Anion Gap BUN Creatinine Est GFR (CKD-EPI)AfAm Est GFR (CKD-EPI)NonAf Random Glucose Calcium Total Bilirubin AST ALT Alkaline Phosphatase Total Protein Albumin Urine Color Yellow Urine Appearance Clear Urine pH 6.0 Ur Specific [place] 1.009 L Urine Protein Negative Urine Glucose (UA) Negative Urine Ketones Negative Urine Blood Negative Urine Nitrite Negative Urine Bilirubin Negative Urine Urobilinogen 0.2 Ur Leukocyte Esterase Negative RPR Titer Labs reviewed: LFTs elevated (AST/ALT): most likely due to alcoholism, follow up with PCP for monitoring - Treatment Hospital Course: Detox Protocol Followed, Detoxed Safely, Responded well, Discharged Condition Good - Medication Discharge Medications: Ambulatory Orders Albuterol Sulfate Inhaler - [Ventolin HFA Inhaler -] 2 puff IH Q4H PRN #1 inhaler 11/30/16 Gabapentin 300 mg PO TID #90 capsule 01/29/17 Quetiapine Fumarate [Seroquel -] 200 mg PO HS #30 tab 01/29/17 Lidocaine 5% Patch [Lidoderm -] 1 patch TP DAILY #30 patch 01/31/17 - Diagnosis (1) Transaminitis Current Visit: Yes Status: Acute (2) Alcohol dependence with uncomplicated intoxication Current Visit: Yes Status: Acute (3) Cannabis dependence Current Visit: Yes Status: Acute (4) Asthma Current Visit: Yes Status: Chronic Qualifiers: Asthma severity: moderate Asthma persistence: persistent Asthma complication type: with acute exacerbation Qualified Code(s): J45.41 - Moderate persistent asthma with (acute) exacerbation (5) GERD (gastroesophageal reflux disease) Current Visit: Yes Status: Chronic Qualifiers: Esophagitis presence: without esophagitis Qualified Code(s): K21.9 - Gastro -esophageal reflux disease without esophagitis (6) HTN (hypertension) Current Visit: Yes Status: Chronic Qualifiers: Hypertension type: essential hypertension Qualified Code(s): I10 - Essential (primary) hypertension (7) Nicotine dependence Current Visit: Yes Status: Chronic Qualifiers: Nicotine product type: cigarettes Substance use status: in withdrawal Qualified Code(s): F17.213 - Nicotine dependence, cigarettes, with withdrawal (8) Seizure Current Visit: Yes Status: Chronic (9) Depression Current Visit: Yes Status: Chronic Qualifiers: Depression Type: unspecified Qualified Code(s): F32.9 - Major depressive disorder, single episode, unspecified - AMA Did Patient Leave Against Medical Advice: No (Instructed to follow up with PCP within 1 week)
[2019-02-24] MEDS ORDERED: cloNIDine HCL 0.1 MG TABLET PO ONE ×2 (20:04→20:30)
[2019-02-24] MEDS: METHOCARBAMOL 500 MG TABLET PO PRN (20:16)
[2019-02-24 20:19] VITALS: BP 147/100; PULSE 94; TEMP 98
--- NOTE | 2019-02-24 20:21 | PN ---
[facility] Progress Note Note: Patient scheduled for discharge this evening. Hx elevated blood pressure - states never treated in past. Also hx migraine headaches. Vital Signs - 24 hr 02/24/19 02/24/19 02/24/19 00:30 03:30 06:44 Temperature 97.6 F Pulse Rate 70 Respiratory 18 18 18 Rate Blood Pressure 124/75 02/24/19 02/24/19 02/24/19 09:28 13:40 17:19 Temperature 96.1 F L 97.8 F 98.6 F Pulse Rate 91 H 92 H 97 H Respiratory 18 18 18 Rate Blood Pressure 135/104 H 142/99 139/101 H 02/24/19 20:18 Temperature 98 F Pulse Rate 94 H Respiratory 20 Rate Blood Pressure 147/100 Patient refused f/u B/P after clonidine administration. Plan: Clonidine now for Discussed the risks of stroke r/t elevated B/P. The discussed the importance of f/u w/ PCP and encouraged to show all medical discharge papers. Agrees to go to Ed if unable to see PCP tomorrow. Discussed the effect of nicotine and sodium on B/P Prescription: HCTZ 25 mg PO once in a.m. for B/P sent to [facility] Patient declined patches or gum. States will speak w/ PCP and request Chantix.
[2019-02-24] MEDS: THIAMINE HCL 100 MG TABLET (FP) PO SCH (22:03)
[2019-02-25] MEDS ORDERED: chlordiazePOXIDE HCL 10 MG CAPSULE PO ONE (05:00)
[2019-02-25] MEDS ORDERED: HYDROCHLOROTHIAZIDE 25 MG TABLET (FP) PO ONE (08:00)
== END 2019-02-24 10:05 | disposition home or self-care (01) | DRG 775 ==
LOC: YASAS 23:47 → Y6N 02-21 01:08
PROVIDERS: ADMIT Allergy & Immunology; ATTEND Allergy & Immunology
PROC: HZ2ZZZZ Detoxification Services for Substance Abuse Treatment (ICD-10-PCS; principal; 2019-02-21)
DX: F10.230 Alcohol dependence with withdrawal, uncomplicated (principal); F12.20 Cannabis dependence, uncomplicated; F17.210 Nicotine dependence, cigarettes, uncomplicated; F32.9 Major depressive disorder, single episode, unspecified; F19.24 Other psychoactive substance dependence with psychoactive substance-induced mood disorder; F19.282 Other psychoactive substance dependence with psychoactive substance-induced sleep disorder; I10 Essential (primary) hypertension; R74.0 Nonspecific elevation of levels of transaminase and lactic acid dehydrogenase [LDH]; J45.41 Moderate persistent asthma with (acute) exacerbation; K21.9 Gastro-esophageal reflux disease without esophagitis; R09.89 Other specified symptoms and signs involving the circulatory and respiratory systems; Z88.6 Allergy status to analgesic agent; Z88.8 Allergy status to other drugs, medicaments and biological substances; Z86.69 Personal history of other diseases of the nervous system and sense organs; Z91.14 Patient's other noncompliance with medication regimen
CPT/HCPCS: 36415; 80053; 81003; 85027; 86593; 93005; 93010; J0735